=== PATIENT | male | born 1950 | race Caucasian/White ===

== ENCOUNTER 2024-06-16 07:26 | Outpatient (CLI) | payer MEDICARE, SELFPAY ==
--- NOTE | 2024-06-16 | ECHO_ITS ---
Patient Info Name: Zeeshan Flores Age: 74 years : 1950 Gender: Male Ht: 73 in Wt: 262 lbs BSA: 2.51 m2 HR: 69 bpm BP: 146 / 69 mmHg Heart Rhythm: Sinus Rhythm Technical Quality: Fair Exam Date: 06/16/2024 7:44 AM Exam Location: Echo Lab Patient Status: Outpatient Admit Date: 06/16/2024 Staff Ordering Physician: MiltonJacob MD Web Database Developer: Rosibel Arreola RDCS Attending Provider: DillanJacob MD Exam Type: CA echo doppler color flow Study Info Indications R01.1 - Cardiac murmur, unspecified Complete two-dimensional, color flow and Doppler transthoracic echocardiogram is performed. Summary 1. Left ventricular chamber dimension is normal. 2. Left ventricular systolic function is normal, estimated at 65-70%. 3. There is moderately increased left ventricular wall thickness. 4. The left ventricular diastolic function is grade I diastolic dysfunction. 5. Right ventricular systolic function is normal. 6. Left atrial chamber dimension is moderately enlarged. 7. There is moderate aortic valve calcification. 8. There is mild aortic valve stenosis with a peak velocity of 259 cm/s, mean gradient of 14 mmHg, and aortic valve area of 1.7 cm2. 9. The mitral valve annulus is severely calcified. 10. There is mild tricuspid valve regurgitation. Left Ventricle Left ventricular chamber dimension is normal. Left ventricular systolic function is normal, estimated at 65-70%. There is moderately increased left ventricular wall thickness. The left ventricular diastolic function is grade I diastolic dysfunction. Right Ventricle Right ventricular chamber dimension is normal. Right ventricular systolic function is normal. Left Atria Left atrial chamber dimension is moderately enlarged. Right Atria Right atrial chamber dimension is normal. Atrial Septum Intact interatrial septum visualized by color flow imaging. Aortic Valve The aortic valve is probable trileaflet. There is mild aortic valve stenosis with a peak velocity of 259 cm/s, mean gradient of 14 mmHg, and aortic valve area of 1.7 cm2. There is no aortic valve regurgitation. There is moderate aortic valve calcification. Pulmonic Valve The pulmonic valve is not well visualized. There is no pulmonic regurgitation. Mitral Valve There is trace mitral valve regurgitation. The mitral valve annulus is severely calcified. Tricuspid Valve There is mild tricuspid valve regurgitation. Pericardium/Pleural There is no pericardial effusion. Inferior Vena Cava Normal inferior vena cava with >50% collapse upon inspiration consistent with normal right atrial pressure, 3 mmHg. Aorta The aortic root size at the sinus of Valsalva is normal. Left Ventricular Outflow Tract Name Value Normal LVOT 2D LVOT Diameter 2.0 cm LVOT Doppler LVOT Peak Gradient 5 mmHg LVOT Mean Gradient 3 mmHg LVOT VTI 27 cm LVOT VTI/AV VTI Ratio 0.5 LVOT Stroke Volume 84 ml LVOT CO 5.5 l/min LVOT CI 2.2 l/min/m2 Pulmonic Valve
== END 2024-06-16 07:27 | disposition home or self-care (01) ==
PROVIDERS: PCP Internal Medicine; Visit Provider Internal Medicine
DX: R01.1 Cardiac murmur, unspecified (principal); I51.89 Other ill-defined heart diseases; I70.0 Atherosclerosis of aorta; I35.0 Nonrheumatic aortic (valve) stenosis; I34.81 Nonrheumatic mitral (valve) annulus calcification; I36.1 Nonrheumatic tricuspid (valve) insufficiency
CPT/HCPCS: 93306

== ENCOUNTER 2024-09-22 11:00 | Inpatient (IN) | payer MEDICARE, SELFPAY ==
[2024-09-22] VITALS (12 sets, daily range): BP systolic 123–146; BP diastolic 51–76; PULSE 76–120; RESP 13–21; TEMP 36.4–36.6; O2SAT 85–100
--- NOTE | ~2024-09-22 | US_ITS ---
BILATERAL LOWER EXTREMITY VENOUS ULTRASOUND Ordering provider: Keara Lama APRN History: . leg swelling . Comparison: None. FINDINGS: RIGHT LOWER EXTREMITY VEINS: --COMMON FEMORAL: Patent and free of thrombus. Normal compressibility, phasic flow and augmentation. --PROXIMAL SUPERFICIAL FEMORAL: Patent and free of thrombus. Normal compressibility, phasic flow and augmentation. --DISTAL SUPERFICIAL FEMORAL: Patent and free of thrombus. Normal compressibility, phasic flow and au gmentation. --POPLITEAL: Patent and free of thrombus. Normal compressibility, phasic flow and augmentation. --POSTERIOR TIBIAL: not evaluated. LEFT LOWER EXTREMITY VEINS: --COMMON FEMORAL: Patent and free of thrombus. Normal compressibility, phasic flow and augmentation. --PROXIMAL SUPERFICIAL FEMORAL: Patent and free of thrombus. Normal compressibility, phasic flow and augmentation. --DISTAL SUPERFICIAL FEMORAL: Patent and free of thrombus. Normal compressibility, phasic flow and au gmentation. --POPLITEAL: Patent and free of thrombus. Normal compressibility, phasic flow and augmentation. --POSTERIOR TIBIAL: Patent and free of thrombus. Normal compressibility, phasic flow and augmentation . IMPRESSION: Negative bilateral lower extremity venous US. No deep vein thrombosis. Reviewed, dictated and finalized at location A. ATING ROOM ASSISTANT
--- NOTE | ~2024-09-22 | XR_ITS ---
XR chest 1V portable DATE: 09/25/2024 22:12 INDICATION: Cough TECHNIQUE: Portable AP chest on 09/25/2024 at 2209 hours COMPARISON: None FINDINGS: Heart size is not optimally evaluated in AP projection because of magnification. Aortic arc h calcification. No pulmonary consolidation, pleural effusion, pulmonary vascular congestion or pneumothorax is detect ed. Degenerative spurring and minimal dextroscoliosis of the thoracic spine. IMPRESSION: No active pulmonary disease Reviewed, dictated and finalized at location A. N INSPECTOR IMPRESSION: No active pulmonary disease
[2024-09-22 12:20] LABS: Basophils Absolute Auto 0.1 K/mm3 (0.0-0.1); Basophils Percent Auto 0.6 % (0.2-1.2); Eosinophils Percent Auto 0.2 % (0-4.4); Hematocrit 34.2 % (42.0-52.0); Hemoglobin 10.4 g/dL (14.0-18.0); Immature Granulocyte Percent A 1.2 % (0-0.5); Lymphocytes Absolute Auto 0.68 K/mm3 (0.9-3.2); Mean Corpuscular HGB Conc 30.4 g/dl (32-36); Mean Corpuscular Hemoglobin 28.2 pg (26-34); Mean Corpuscular Volume 92.7 fl (80-100); Mean Platelet Volume 8.9 fl (7.4-10.4); Monocytes Percent Auto 11.7 % (2.6-8.5); Neutrophils Absolute Auto 6.6 K/mm3 (1.3-6.7); Neutrophils Percent Auto 78.3 % (45.5-73.1); Platelet Count Result 310 k/mm3 (150-375); Red Blood Count 3.69 M/mm3 (4.6-6.20); Red Cell Distribution Width 15.9 % (11.5-14.5); White Blood Count 8.5 K/mm3 (4.5-10.0)
--- NOTE | 2024-09-22 13:29 | ED_ITS ---
HPI - Extremity Injury (Lower) General Chief Complaint: Extremity Injury, Lower Stated Complaint: skin problems Time Seen by Provider: 09/22/24 12:09 History of Present Illness HPI Narrative: Patient is a 74-year-old male who presents ER with wounds to his lower extremities, left lower extremity worse than the right. The left side is draining pus. Began over last couple of days. Denies fevers or chills. He has seen Wound Care, he thinks it is through gait today. He has been on doxycycline for months. Related Data Home Medications ?Medication ?Instructions ?Recorded ?Confirmed ?Last Taken ?Type aspirin 81 mg tablet,delayed 81 mg PO DAILY 09/22/24 09/22/24 09/19/24 History release (Adult Aspirin Regimen) clobetasol 0.05 % topical ointment 1 applic topical Q3D 09/22/24 09/22/24 09/21/24 History doxycycline hyclate 100 mg tablet 200 mg PO BID 09/22/24 09/22/24 09/22/24 History empagliflozin 10 mg tablet 10 mg PO DAILY 09/22/24 09/22/24 09/22/24 History (Jardiance) insulin degludec 100 unit/mL (3 20 unit subcut DAILY 09/22/24 09/22/24 09/22/24 History mL) subcutaneous pen (Tresiba FlexTouch U-100 insulin) lisinopril 10 mg tablet 10 mg PO DAILY 09/22/24 09/22/24 09/22/24 History mupirocin 2 % topical ointment 1 applic topical DAILY 09/22/24 09/22/24 Unknown History omega 6-bux-pzq-fish oil 100 1 cap PO DAILY 09/22/24 09/22/24 09/22/24 History mg-160 mg-1,000 mg capsule (Fish Oil) prednisone 10 mg tablet 10 mg PO DAILY 09/22/24 09/22/24 09/22/24 History rosuvastatin 10 mg tablet (Crestor) 10 mg PO DAILY 09/22/24 09/22/24 09/22/24 History Allergies Allergy/AdvReac Type Severity Reaction Status Date / Time No Known Allergies Allergy Verified 09/22/24 12:10 Review of Systems 2 Review of Systems: All systems reviewed & are unremarkable except as noted in HPI and below Constitutional: Constitutional: Reports no additional constitutional complaints ENT: Reports system reviewed and no additional complaints, except as documented Cardiovascular: Cardiovascular: Reports no additional cardiovascular complaints Respiratory: Respiratory: Reports no additional respiratory complaints Integumentary/Breasts: Skin/Breast: Reports rash and Reports skin ulcer C omments: purulent wounds Neurologic: Reports system reviewed and no additional complaints, except as documented PMFSH Past Medical History Medical History (Updated 09/22/24 @ 21:15 by Jose Burk MD) Hyperlipidemia Hypertension Diabetes Social History Social History Smoking status: Never smoker Alcohol intake: current Drinks per week: 14 Last use: 09/13/24 Do You Feel Safe in your Home?: Yes Lack of Transportation: No Lack of Food: Never True Current Housing: I Have Housing Concerned About Future Housing: No Difficulty Paying Gas/Electric Bills: No Difficulty Paying for Meds: No Currently Unemployed: No Education: Decline to Answer Difficulty w/ Childcare or Family Care: No Spiritual care concerns: No Exam 2 Narrative: GENERAL: Well-appearing, well-nourished, and in no acute distress. HEAD: Normocephalic, atraumatic. ENT: Mucous membranes moist. NECK: Supple. CHEST: Clear to auscultation. No respiratory distress. HEART: Regular rate and rhythm. Normal peripheral pulses. ABDOMEN: Soft, nontender, nondistended. EXTREMITIES: Normal range of motion. Chronic venous stasis changes of bilateral lower extremities. SKIN: Warm, dry. Chronic ulcer shins of the lateral aspects lower legs near the ankle. Purulent drainage from anterior kearney wounds on left lower extremity. No excessive warmth. NEURO: Alert and oriented x3. PSYCH: Normal mood and affect. Course Vital Signs Vital signs: Vital Signs Temperature 97.8 F 09/22/24 11:07 Pulse Rate 104 H 09/22/24 11:07 Respiratory Rate 20 09/22/24 11:07 Blood Pressure 138/58 L 09/22/24 11:07 Pulse Oximetry 85 L 09/22/24 11:07 Oxygen Delivery Room Air 09/22/24 11:07 Temperature 97.8 F 09/22/24 11:07 Pulse Rate 93 09/22/24 17:15 Respiratory Rate 18 09/22/24 17:15 Blood Pressure 126/60 09/22/24 17:15 Pulse Oximetry 98 09/22/24 16:30 Oxygen Delivery Room Air 09/22/24 12:16 MDM - Extremity Injury (Lower) Lab Data 09/22/24 12:11 09/22/24 12:39 Labs: Lab Results 09/22/24 09/22/24 Range/Units 12:11 12:39 WBC 8.5 (4.5-10.0) K/mm3 RBC 3.69 L (4.6-6.20) M/mm3 Hgb 10.4 L (14.0-18.0) g/dL Hct 34.2 L (42.0-52.0) % MCV 92.7 (80-100) fl MCH 28.2 (26-34) pg MCHC 30.4 L (32-36) g/dl RDW 15.9 H (11.5-14.5) % Plt Count 310 (150-375) k/mm3 MPV 8.9 (7.4-10.4) fl Immature Gran % (Auto) 1.2 H (0-0.5) % Neut % (Auto) 78.3 H (45.5-73.1) % Lymph % (Auto) 8.0 L (18.3-44.2) % [place] % (Auto) 11.7 H (2.6-8.5) % Eos % (Auto) 0.2 (0-4.4) % Baso % (Auto) 0.6 (0.2-1.2) % Lymph # (Auto) 0.68 L (0.9-3.2) K/mm3 [place] # (Auto) 1.0 H (0.1-0.6) K/mm3 Eos # (Auto) 0.0 (0-0.3) K/mm3 Baso # (Auto) 0.1 (0.0-0.1) K/mm3 Abs Immat Gran (auto) 0.10 H (0.00-0.031) K/mm3 Absolute Neuts (auto) 6.6 (1.3-6.7) K/mm3 Absolute Nucleated RBC 0.000 (0.0-0.012) K/mm3 Nucleated RBC % 0.0 (0.0-0.2) % PT 16.1 H (11.1-14.7) Seconds INR 1.2 APTT 38.4 H (22.3-36.8) Seconds Sodium 137 (137-145) mmol/L Potassium 4.5 (3.4-5.0) mmol/L Chloride 105 (98-107) mmol/L Carbon Dioxide 26 (22-30) mmol/L Anion Gap 6 (4-12) mmol/L BUN 14 (9-20) mg/dL Creatinine 0.60 L (0.7-1.3) mg/dL Estim Creat Clear Calc 124 ml/min Estimated GFR > 60 (59 - ) Glucose 196 H (65-110) mg/dL Calcium 9.0 (8.4-10.2) mg/dL Discharge Plan Discharge Clinical Impression: Abscess of left leg Patient Disposition: Still a Patient Condition: Stable
[2024-09-22 13:45] LABS: INR 1.2; Prothrombin Time 16.1 Seconds (11.1-14.7)
[2024-09-22 13:46] LABS: Partial Thromboplastin Time 38.4 Seconds (22.3-36.8)
[2024-09-22 13:50] LABS: Anion Gap 6 mmol/L (4-12); Blood Urea Nitrogen 14 mg/dL (9-20); Carbon Dioxide 26 mmol/L (22-30); Chloride 105 mmol/L (98-107); Estimated CRCL calculation 124 ml/min; Estimated Glomerular Filt Rate > 60; Glucose 196 mg/dL (65-110); Potassium 4.5 mmol/L (3.4-5.0); Sodium 137 mmol/L (137-145)
--- NOTE | 2024-09-22 15:01 | PC.NURSE ---
Per EDP, Dr. Burk, no blood cultures needed.
[2024-09-22] MEDS: VANCOMYCIN 1,500 MG/NS 500 ML 1,500 MG/500 ML BAG 250 MG IVPB (16:36)
[2024-09-22] MEDS: HYDROcodone/acetaminophen (*CRX) 5-325 MG TABLET 1 TAB PO (18:54)
--- NOTE | 2024-09-22 19:37 | PC.NURSE ---
This patient, Zeeshan Flores, was admitted to 3 [facility] Surg Room 326-01. Patient/family oriented to hospital policies and general routines including ID bracelet, bed and alarms, visiting hours, pain management, procedures, bathroom and other care routines, personal items, smoking policy, room service/diet, and visiting hours. Information on how to activate the Rapid Response Team has been discussed. Patient/Family are encouraged to report perceived risks to care and to ask questions if they do not understand what they are told or what they should do.
[2024-09-22 22:25] LABS: Glucose Point of Care 170 mg/dl (65-105)
[2024-09-23] VITALS (14 sets, daily range): BP systolic 107–133; BP diastolic 46–81; PULSE 72–137; RESP 18–26; TEMP 36.1–37.1; O2SAT 95–100
[2024-09-23 00:16] LABS: Hemoglobin A1C 8.3 % (<5.7)
[2024-09-23 02:29] LABS: Iron 31 ug/dL (49-181)
[2024-09-23 02:40] LABS: Percent Iron Saturation 8 % (20-50); TOTAL IRON BINDING CAPACITY 365 ug/dL (265-497)
[2024-09-23] MEDS: VANCOMYCIN 1,500 MG/NS 500 ML 1,500 MG/500 ML BAG 250 MG IVPB (03:22)
[2024-09-23] MEDS: HYDROcodone/acetaminophen (*CRX) 5-325 MG TABLET 1 TAB PO ×3 (03:23→14:02)
[2024-09-23 03:36] LABS: Folic Acid > 20.0 ng/mL (2.76->20)
--- NOTE | 2024-09-23 04:30 | PM.IMHP ---
H&P: HPI History of Present Illness Date/Time: 09/23/24 04:30 Chief Complaint: Left leg drainage/redness/swelling Narrative: This is a 74-year-old male patient with a history hypertension hyperlipidemia diabetes is admitted for left lower extremity cellulitis/possible abscess. Patient as peripheral vascular disease has been getting wounds and blisters his lower extremities. The leg has more red more swollen than usual. He had previously been oral doxycycline for months that has not helped. Patient reported initially he was a little short of breath on arrival to the emergency department they placed him oxygen temporarily and discontinued it and he has been short of breath since. Patient does not take a water pill. Echocardiogram in May 2024 showed Grade 1 diastolic dysfunction. Review of Systems Review of Systems: All systems reviewed & are unremarkable except as noted in HPI and below PMFSH Past Medical History Medical History (Updated 09/23/24 @ 07:36 by Kelby Hernandes APRN) Hyperlipidemia Hypertension Diabetes Social History Social History (Updated 09/22/24 @ 22:41 by Suze Sumner) Smoking status: Never smoker Alcohol intake: current Drinks per week: 14 Alcohol use details: last drink 09/13/24 Do You Feel Safe in your Home?: Yes Lack of Transportation: No Lack of Food: Never True Current Housing: I Have Housing Concerned About Future Housing: No Difficulty Paying Gas/Electric Bills: No Difficulty Paying for Meds: No Currently Unemployed: No Education: Decline to Answer Difficulty w/ Childcare or Family Care: No Gender identity (if verbalized by the patient): Male Spiritual care concerns: No Meds Home Medications and Allergies Home Medications ?Medication ?Instructions ?Recorded ?Confirmed ?Type aspirin 81 mg tablet,delayed 81 mg PO DAILY 09/22/24 09/22/24 History release (Adult Aspirin Regimen) clobetasol 0.05 % topical ointment 1 applic topical Q3D 09/22/24 09/22/24 History doxycycline hyclate 100 mg tablet 200 mg PO BID 09/22/24 09/22/24 History empagliflozin 10 mg tablet 10 mg PO DAILY 09/22/24 09/22/24 History (Jardiance) insulin degludec 100 unit/mL (3 20 unit subcut DAILY 09/22/24 09/22/24 History mL) subcutaneous pen (Tresiba FlexTouch U-100 insulin) lisinopril 10 mg tablet 10 mg PO DAILY 09/22/24 09/22/24 History mupirocin 2 % topical ointment 1 applic topical DAILY 09/22/24 09/22/24 History omega 1-doh-pbj-fish oil 100 1 cap PO DAILY 09/22/24 09/22/24 History mg-160 mg-1,000 mg capsule (Fish Oil) prednisone 10 mg tablet 10 mg PO DAILY 09/22/24 09/22/24 History rosuvastatin 10 mg tablet (Crestor) 10 mg PO DAILY 09/22/24 09/22/24 History Allergies Allergy/AdvReac Type Severity Reaction Status Date / Time No Known Allergies Allergy Verified 09/22/24 12:10 Vital Signs Vital Signs - 24 hr 09/22/24 11:07 09/22/24 11:38 09/22/24 11:45 Temperature 36.6 C Pulse Rate 104 H 110 H 120 H Respiratory Rate 20 17 13 Blood Pressure 138/58 L 123/69 Pulse Oximetry 85 L 98 Oxygen Delivery Room Air 09/22/24 12:00 09/22/24 12:10 09/22/24 12:16 Temperature Pulse Rate 112 H 113 H Respiratory Rate 21 H 17 Blood Pressure 131/52 L 131/52 L Pulse Oximetry 97 97 96 Oxygen Delivery Room Air 09/22/24 12:45 09/22/24 14:15 09/22/24 15:01 Temperature Pulse Rate 110 H 102 H 87 Respiratory Rate 20 19 18 Blood Pressure 146/66 H 130/59 L 127/60 Pulse Oximetry 100 100 98 Oxygen Delivery 09/22/24 16:30 09/22/24 17:15 09/22/24 20:00 Temperature Pulse Rate 89 93 Respiratory Rate 20 18 Blood Pressure 130/76 126/60 Pulse Oximetry 98 Oxygen Delivery Room Air 09/22/24 22:00 Temperature 36.4 C Pulse Rate 76 Respiratory Rate 20 Blood Pressure 124/51 L Pulse Oximetry 97 Oxygen Delivery Exam Narrative: GENERAL: Well-appearing, well-nourished, and in no acute distress. HEAD: Normocephalic, atraumatic. ENT: Mucous membranes moist. NECK: Supple. CHEST: Clear to auscultation. No respiratory distress. HEART: Regular rate and rhythm. Normal peripheral pulses. ABDOMEN: Soft, nontender, nondistended. EXTREMITIES: Normal range of motion. Chronic venous stasis changes of bilateral lower extremities. SKIN: Warm, dry. Chronic ulcer shins of the lateral aspects lower legs near the ankle. Purulent drainage from anterior kearney wounds on left lower extremity. Significant erythema swelling to the left leg compared to the right. NEURO: Alert and oriented x3. PSYCH: Normal mood and affect. H&P: Results Labs Labs: Short CBC 09/22/24 Range/Units 12:11 WBC 8.5 (4.5-10.0) K/mm3 Hgb 10.4 L (14.0-18.0) g/dL Hct 34.2 L (42.0-52.0) % Plt Count 310 (150-375) k/mm3 BMP 09/22/24 12:39 Sodium 137 Potassium 4.5 Chloride 105 Carbon Dioxide 26 BUN 14 Creatinine 0.60 L Glucose 196 H Calcium 9.0 Pulse Oximetry SpO2 results: 97-98% on room air Attestation: I personally reviewed and interpreted this pulse oximetry as follows: Interpretation: No need for supplemental oxygenation at this time Assessment and Plan Assessment and plan (1) Cellulitis of left leg: Code(s): L03.116 - Cellulitis of left lower limb Status: Acute Assessment and Plan: -chronic wounds bilateral lower extremities due to PVD and lymphedema, worse on left -Significantly more swollen and red than right leg -Pus drainage from kearney wound cultured in ER, started on vancomycin IV (2) Diabetes type 2: Code(s): E11.9 - Type 2 diabetes mellitus without complications Status: Acute Assessment and Plan: -HGB A1c 8.3 -ACHS Fingerstick glucose -Resume home Lantus and SSI (3) Hypertension: Code(s): I10 - Essential (primary) hypertension Status: Acute Assessment and Plan: -Blood pressure reviewed and stable -Continue home medications (4) Hyperlipidemia: Code(s): E78.5 - Hyperlipidemia, unspecified Status: Acute Assessment and Plan: -Continue Crestor (5) Iron deficiency anemia: Code(s): D50.9 - Iron deficiency anemia, unspecified Status: Acute Assessment and Plan: -Chronic anemia noted on labs -Ordered anemia labs B12/Folate, iron/TIBC and ferritin -Iron count and %saturation quite low Quality VTE Prophylaxis VTE prophylaxis: pharmacologic ordered Hospitalist MIPS Advance Care Plan I have confirmed that the patient's Advanced Care Plan is present, code status is documented, or surrogate decision maker is listed in patient medical record.: Yes Medication Reconciliation I have utilized all available resources to obtain, update and review the patients current medications (includes all prescriptions, OTC, herbals, cannabis, and nutritional supplements).: Yes
[2024-09-23 06:49] LABS: Basophils Absolute Auto 0.1 K/mm3 (0.0-0.1); Basophils Percent Auto 0.6 % (0.2-1.2); Eosinophils Absolute Auto 0.1 K/mm3 (0-0.3); Eosinophils Percent Auto 0.6 % (0-4.4); Hemoglobin 9.6 g/dL (14.0-18.0); Immature Granulocyte Percent A 2.1 % (0-0.5); Lymphocytes Absolute Auto 1.27 K/mm3 (0.9-3.2); Lymphocytes Percent Auto 13.6 % (18.3-44.2); Mean Corpuscular Hemoglobin 27.7 pg (26-34); Mean Corpuscular Volume 92.5 fl (80-100); Mean Platelet Volume 8.5 fl (7.4-10.4); Monocytes Absolute Auto 1.8 K/mm3 (0.1-0.6); Monocytes Percent Auto 19.3 % (2.6-8.5); Neutrophils Percent Auto 63.8 % (45.5-73.1); Platelet Count Result 348 k/mm3 (150-375); Red Blood Count 3.46 M/mm3 (4.6-6.20); Red Cell Distribution Width 15.9 % (11.5-14.5); White Blood Count 9.4 K/mm3 (4.5-10.0)
[2024-09-23 07:02] LABS: Alanine Aminotransferase 14 U/L (6-50); Albumin Level 3.2 g/dL (3.5-5.1); Alkaline Phosphatase 63 U/L (38-126); Anion Gap 6 mmol/L (4-12); Aspartate Amino Transferase 17 U/L (17-59); Bilirubin,Total 1.3 mg/dL (0.2-1.3); Blood Urea Nitrogen 16 mg/dL (9-20); Calcium 8.7 mg/dL (8.4-10.2); Carbon Dioxide 26 mmol/L (22-30); Chloride 105 mmol/L (98-107); Estimated CRCL calculation 125 ml/min; Estimated Glomerular Filt Rate > 60; Glucose 118 mg/dL (65-110); Magnesium 2.2 mg/dL (1.6-2.3); Sodium 137 mmol/L (137-145)
[2024-09-23 07:36] LABS: Procalcitonin 0.2 ng/mL
[2024-09-23 07:43] LABS: CRP 19.8 mg/dL (<1.0)
[2024-09-23 07:46] LABS: Erythrocyte Sedimentation Rate > 140 mm/hr (0-20)
[2024-09-23 07:48] LABS: Glucose Point of Care 100 mg/dl (65-105)
[2024-09-23] MEDS: ROSUVASTATIN 10 MG TABLET PO (08:48)
[2024-09-23] MEDS: INSULIN GLARGINE (*BKC) 100 UNITS/ML 20 UNITS SUB-Q (08:48)
[2024-09-23] MEDS: lisinopriL 10 MG TABLET PO (08:48)
[2024-09-23] MEDS: ENOXAPARIN 40 MG/0.4 ML SYRINGE SUB-Q (08:48)
[2024-09-23] MEDS: ASPIRIN 81 MG ENTERIC TABLET PO (08:48)
[2024-09-23] MEDS: EMPAGLIFLOZIN 10 MG TABLET PO (08:48)
[2024-09-23 11:33] LABS: Glucose Point of Care 128 mg/dl (65-105)
--- NOTE | 2024-09-23 11:59 | P.CONGS_ITS ---
Assessment and Plan Assessment and plan (1) Abscess of left leg: Code(s): L02.416 - Cutaneous abscess of left lower limb Status: Acute Assessment and Plan: Left lower extremity with cellulitis and multiple draining wounds. There are small open wounds on the anterior lower leg that has purulent drainage and is tracking about 6 cm cephalad up his leg. We obtained a wound culture at the bedside today. We discussed treatment options with the patient and would recommend to proceed with incision and drainage of left leg abscess by Dr. Gandhi, which will need to be done in the OR. We will make him NPO for now and try adding him onto the surgery schedule. Description of the procedure, risks, benefits, alternatives, and expected wound care/recovery were discussed with the patient and he agrees to proceed. Continue IV antibiotics, which can be tailored to cultures. (2) Cellulitis of left leg: Code(s): L03.116 - Cellulitis of left lower limb Status: Acute Assessment and Plan: Continue IV antibiotics and keep lower extremities elevated while at rest in the bed or chair. (3) Venous stasis dermatitis of both lower extremities: Code(s): I87.2 - Venous insufficiency (chronic) (peripheral) Status: Chronic Assessment and Plan: The patient has severe venous stasis disease bilaterally and will need to be referred to a vascular surgeon. (4) Diabetes type 2: Code(s): E11.9 - Type 2 diabetes mellitus without complications Status: Acute Assessment and Plan: Insulin-dependent type 2 diabetes with a hgb A1C on this admission of 8.3. Management per Hospitalist. (5) Hypertension: Code(s): I10 - Essential (primary) hypertension Status: Acute (6) Iron deficiency anemia: Code(s): D50.9 - Iron deficiency anemia, unspecified Status: Acute Plan I have discussed the patient's case and plan of care with Dr. Gandhi. Thank you for allowing us to see the patient in consultation and we will continue to follow along with you. History of Present Illness Consult details Consult date: 09/23/24 Reason for consult: other (Left leg abscess) Requesting physician: Keara Lama, SHERICE Narrative: This is a 74-year-old man with PMH of insulin-dependent type 2 diabetes mellitus, hypertension, hyperlipidemia, who we have been asked to see in surgical consultation for a left leg abscess. He reports recently being followed by a wound care clinic in [place] after he developed some blisters or wounds on his left lower leg. He was started on antibiotics and topical ointments by his primary care provider. He was seen at the wound clinic and they reportedly tried to refer him to another specialist. He was unable to get in with the specialist for another couple weeks, and he was concerned that his left lower leg was getting worse. Therefore, he called his PCP who recommended he go to an ER for evaluation. He presented to the ED yesterday. Labs showed a normal white blood cell count. Hemoglobin A1c 8.3. He was found to have cellulitis and wounds of the left lower extremity and admitted to the hospitalist service. He has been started on IV vancomycin. Wound care was consulted and found left lower extremity wounds with purulence drainage concerning for abscess, and they recommended surgical evaluation. He is now seen at the bedside with Dr. Gandhi. His wounds have clearly been draining for some time, because he reports he has not slept in a bed for a long time due to the drainage from his legs. Denies any recent surgical management of his wounds or left lower extremity. No previous peripheral stents. Review of Systems 2 Review of Systems: All systems reviewed & are unremarkable except as noted in HPI and below PMFSH Past Medical History Medical History Venous stasis dermatitis of both lower extremities Hyperlipidemia Hypertension Diabetes Social History Social History Smoking status: Never smoker Alcohol intake: current Drinks per week: 14 Alcohol use details: last drink 09/13/24 Do You Feel Safe in your Home?: Yes Lack of Transportation: No Lack of Food: Never True Current Housing: I Have Housing Concerned About Future Housing: No Difficulty Paying Gas/Electric Bills: No Difficulty Paying for Meds: No Currently Unemployed: No Education: Decline to Answer Difficulty w/ Childcare or Family Care: No Gender identity (if verbalized by the patient): Male Spiritual care concerns: No Meds Home Medications and Allergies Home Medications ?Medication ?Instructions ?Recorded ?Confirmed ?Type aspirin 81 mg tablet,delayed 81 mg PO DAILY 09/22/24 09/22/24 History release (Adult Aspirin Regimen) clobetasol 0.05 % topical ointment 1 applic topical Q3D 09/22/24 09/22/24 History doxycycline hyclate 100 mg tablet 200 mg PO BID 09/22/24 09/22/24 History empagliflozin 10 mg tablet 10 mg PO DAILY 09/22/24 09/22/24 History (Jardiance) insulin degludec 100 unit/mL (3 20 unit subcut DAILY 09/22/24 09/22/24 History mL) subcutaneous pen (Tresiba FlexTouch U-100 insulin) lisinopril 10 mg tablet 10 mg PO DAILY 09/22/24 09/22/24 History mupirocin 2 % topical ointment 1 applic topical DAILY 09/22/24 09/22/24 History omega 6-hyn-mhp-fish oil 100 1 cap PO DAILY 09/22/24 09/22/24 History mg-160 mg-1,000 mg capsule (Fish Oil) prednisone 10 mg tablet 10 mg PO DAILY 09/22/24 09/22/24 History rosuvastatin 10 mg tablet (Crestor) 10 mg PO DAILY 09/22/24 09/22/24 History Allergies Allergy/AdvReac Type Severity Reaction Status Date / Time No Known Allergies Allergy Verified 09/22/24 12:10 Vital Signs Vital Signs - 24 hr 09/22/24 12:00 09/22/24 12:10 09/22/24 12:16 Temperature Pulse Rate 112 H 113 H Respiratory Rate 21 H 17 Blood Pressure 131/52 L 131/52 L Pulse Oximetry 97 97 96 Oxygen Delivery Room Air 09/22/24 12:45 09/22/24 14:15 09/22/24 15:01 Temperature Pulse Rate 110 H 102 H 87 Respiratory Rate 20 19 18 Blood Pressure 146/66 H 130/59 L 127/60 Pulse Oximetry 100 100 98 Oxygen Delivery 09/22/24 16:30 09/22/24 17:15 09/22/24 20:00 Temperature Pulse Rate 89 93 Respiratory Rate 20 18 Blood Pressure 130/76 126/60 Pulse Oximetry 98 Oxygen Delivery Room Air 09/22/24 22:00 09/23/24 06:00 09/23/24 09:00 Temperature 97.6 F 97.6 F Pulse Rate 76 109 H Respiratory Rate 20 18 Blood Pressure 124/51 L 122/51 L Pulse Oximetry 97 97 Oxygen Delivery Room Air Exam 2 Const: General: comfortable and no acute distress Nutritional Appearance: o verweight Orientation/consciousness: patient oriented x3 HENMT: Head: normocephalic and atraumatic Ears: hearing grossly normal bilaterally Eyes: General: appearance normal, both eyes and all related structures P upils: Equal, round and reactive pupils present Neck: Neck: normal visual inspection and full ROM Resp: Effort & Inspection: no respiratory distress Auscultation: clear to auscultation bilaterally Cardio: Rate: regular rate Rhythm: regular rhythm Heart sounds: S1 normal heart sound present and S2 normal heart sound present GI: Inspection: non-distended GI Palp: Yes Soft to palpation, No Tenderness to palpation present (GI) and No Guarding due to palpation present (GI) A uscultation: normal bowel sounds Skin: General skin exam: no pallor Neuro: General: moves all extremities and no focal motor deficits Speech: n ormal speech Motor exam (neuro): 5/5 motor strength present throughout Extrem: Right upper extremity: normal to inspection Left upper extremity: n ormal to inspection Other: Bilateral lower extremity venous stasis dermatitis. Left lower leg has diffuse erythema and edema in comparison to the right. There are multiple open wounds on the left lower leg with three small open wounds on the anterior aspect of the lower leg that are draining purulent drainage, which was cultured at the bedside. The most superior open wound tunnels cephalad about 6 cm and with almost continuous actively draining pus. When probing at least the most superior opening, it does seem to probe to bone. He is able to wiggle his toes and has active ROM of left ankle. Both the pedal and posterior tibial pulses showed triphasic doppler waveforms with bedside doppler. Psych: Mental Status: mental status grossly normal Attitude: cooperative Insight: Fair insight present (Psych) Judgement: Fair judgement present (Psych) Results Labs 09/23/24 06:42 09/23/24 06:42 Labs: Abnormal lab results 09/22/24 09/22/24 09/22/24 Range/Units 12:11 12:39 21:32 RBC 3.69 L (4.6-6.20) M/mm3 Hgb 10.4 L (14.0-18.0) g/dL Hct 34.2 L (42.0-52.0) % MCHC 30.4 L (32-36) g/dl RDW 15.9 H (11.5-14.5) % Immature Gran % (Auto) 1.2 H (0-0.5) % Neut % (Auto) 78.3 H (45.5-73.1) % Lymph % (Auto) 8.0 L (18.3-44.2) % [place] % (Auto) 11.7 H (2.6-8.5) % Lymph # (Auto) 0.68 L (0.9-3.2) K/mm3 [place] # (Auto) 1.0 H (0.1-0.6) K/mm3 Abs Immat Gran (auto) 0.10 H (0.00-0.031) K/mm3 ESR (0-20) mm/hr PT 16.1 H (11.1-14.7) Seconds APTT 38.4 H (22.3-36.8) Seconds Creatinine 0.60 L (0.7-1.3) mg/dL Glucose 196 H (65-110) mg/dL POC Capillary Glucose 170 H (65-105) mg/dl Hemoglobin A1c 8.3 H (<5.7) % Iron 31 L (49-181) ug/dL % Saturation 8 L (20-50) % Ferritin 832.00 H (11.1-264) ng/mL C-Reactive Protein (<1.0) mg/dL Albumin (3.5-5.1) g/dL Folate > 20.0 H (2.76->20) ng/mL 09/23/24 09/23/24 Range/Units 06:42 11:25 RBC 3.46 L (4.6-6.20) M/mm3 Hgb 9.6 L (14.0-18.0) g/dL Hct 32.0 L (42.0-52.0) % MCHC 30.0 L (32-36) g/dl RDW 15.9 H (11.5-14.5) % Immature Gran % (Auto) 2.1 H (0-0.5) % Neut % (Auto) (45.5-73.1) % Lymph % (Auto) 13.6 L (18.3-44.2) % [place] % (Auto) 19.3 H (2.6-8.5) % Lymph # (Auto) (0.9-3.2) K/mm3 [place] # (Auto) 1.8 H (0.1-0.6) K/mm3 Abs Immat Gran (auto) 0.20 H (0.00-0.031) K/mm3 ESR > 140 H (0-20) mm/hr PT (11.1-14.7) Seconds APTT (22.3-36.8) Seconds Creatinine 0.60 L (0.7-1.3) mg/dL Glucose 118 H (65-110) mg/dL POC Capillary Glucose 128 H (65-105) mg/dl Hemoglobin A1c (<5.7) % Iron (49-181) ug/dL % Saturation (20-50) % Ferritin (11.1-264) ng/mL C-Reactive Protein 19.8 H (<1.0) mg/dL Albumin 3.2 L (3.5-5.1) g/dL Folate (2.76->20) ng/mL Diabetes panel 09/22/24 09/22/24 09/23/24 Range/Units 12:11 12:39 06:42 Sodium 137 137 (137-145) mmol/L Potassium 4.5 4.0 (3.4-5.0) mmol/L Chloride 105 105 (98-107) mmol/L Carbon Dioxide 26 26 (22-30) mmol/L BUN 14 16 (9-20) mg/dL Creatinine 0.60 L 0.60 L (0.7-1.3) mg/dL Glucose 196 H 118 H (65-110) mg/dL Hemoglobin A1c 8.3 H (<5.7) % Calcium 9.0 8.7 (8.4-10.2) mg/dL AST 17 (17-59) U/L ALT 14 (6-50) U/L Alkaline Phosphatase 63 (38-126) U/L Total Protein 7.0 (6.3-8.2) g/dL Albumin 3.2 L (3.5-5.1) g/dL Calcium panel 09/22/24 09/23/24 Range/Units 12:39 06:42 Calcium 9.0 8.7 (8.4-10.2) mg/dL Albumin 3.2 L (3.5-5.1) g/dL Pituitary panel 09/22/24 09/23/24 Range/Units 12:39 06:42 Sodium 137 137 (137-145) mmol/L Potassium 4.5 4.0 (3.4-5.0) mmol/L Chloride 105 105 (98-107) mmol/L Carbon Dioxide 26 26 (22-30) mmol/L BUN 14 16 (9-20) mg/dL Creatinine 0.60 L 0.60 L (0.7-1.3) mg/dL Glucose 196 H 118 H (65-110) mg/dL Calcium 9.0 8.7 (8.4-10.2) mg/dL Adrenal panel 09/22/24 09/23/24 Range/Units 12:39 06:42 Sodium 137 137 (137-145) mmol/L Potassium 4.5 4.0 (3.4-5.0) mmol/L Chloride 105 105 (98-107) mmol/L Carbon Dioxide 26 26 (22-30) mmol/L BUN 14 16 (9-20) mg/dL Creatinine 0.60 L 0.60 L (0.7-1.3) mg/dL Glucose 196 H 118 H (65-110) mg/dL Calcium 9.0 8.7 (8.4-10.2) mg/dL Total Bilirubin 1.3 (0.2-1.3) mg/dL AST 17 (17-59) U/L ALT 14 (6-50) U/L Alkaline Phosphatase 63 (38-126) U/L Total Protein 7.0 (6.3-8.2) g/dL Albumin 3.2 L (3.5-5.1) g/dL All other labs normal.
--- NOTE | 2024-09-23 15:03 | PM.IMPN ---
Progress Note: A&P Assessment and Plan (1) Cellulitis of left leg: Code(s): L03.116 - Cellulitis of left lower limb Status: Acute Assessment and Plan: -chronic wounds bilateral lower extremities due to PVD and lymphedema, worse on left -Significantly more swollen and red than right leg -Pus drainage from [place] wound cultured in ER, started on vancomycin IV will order doppler to r/u DVT (2) Diabetes type 2: Code(s): E11.9 - Type 2 diabetes mellitus without complications Status: Acute Assessment and Plan: -HGB A1c 8.3 -ACHS Fingerstick glucose -Resume home Lantus 20 units and SSI hypoglycemia protocol (3) Hypertension: Code(s): I10 - Essential (primary) hypertension Status: Acute Assessment and Plan: -Blood pressure reviewed and stable -Continue home medications (4) Hyperlipidemia: Code(s): E78.5 - Hyperlipidemia, unspecified Status: Acute Assessment and Plan: -Continue Crestor (5) Iron deficiency anemia: Code(s): D50.9 - Iron deficiency anemia, unspecified Status: Acute Assessment and Plan: -Chronic anemia noted on labs -Ordered anemia labs B12/Folate, iron/TIBC and ferritin -Iron count and %saturation quite low Time Spent With Patient Time with patient: Greater than 35 minutes Subjective Date/time seen: 09/23/24 15:03 Interval history: his is a 74-year-old male patient with a history hypertension hyperlipidemia diabetes is admitted for left lower extremity cellulitis/possible abscess. Patient as peripheral vascular disease has been getting wounds and blisters his lower extremities. The leg has more red more swollen than usual. He had previously been oral doxycycline for months that has not helped. Patient reported initially he was a little short of breath on arrival to the emergency department they placed him oxygen temporarily and discontinued it and he has been short of breath since. Patient does not take a water pill. Echocardiogram in May 2024 showed Grade 1 diastolic dysfunction. Pt is seen and examined. He is up in the chair, pain is well controlled. Review of Systems Review of Systems: All systems reviewed & are unremarkable except as noted in HPI and below Cardiovascular: Cardiovascular: Denies chest pain Respiratory: Respiratory: Denies chest congestion Gastrointestinal: Gastrointestinal: Denies abdominal pain Exam Narrative: GENERAL: Well-appearing, well-nourished, and in no acute distress. HEAD: Normocephalic, atraumatic. ENT: Mucous membranes moist. NECK: Supple. CHEST: Clear to auscultation. No respiratory distress. HEART: Regular rate and rhythm. Normal peripheral pulses. ABDOMEN: Soft, nontender, nondistended. EXTREMITIES: Normal range of motion. Chronic venous stasis changes of bilateral lower extremities. SKIN: Warm, dry. Chronic ulcer shins of the lateral aspects lower legs near the ankle. Purulent drainage from anterior kear[place] wounds on left lower extremity. Significant erythema swelling to the left leg compared to the right. NEURO: Alert and oriented x3. PSYCH: Normal mood and affect. Objective Data Vital Signs Vital Signs: Vital Signs - 24 hr 09/22/24 16:30 09/22/24 17:15 09/22/24 20:00 Temperature Pulse Rate 89 93 Respiratory Rate 20 18 Blood Pressure 130/76 126/60 Pulse Oximetry 98 Oxygen Delivery Room Air 09/22/24 22:00 09/23/24 06:00 09/23/24 09:00 Temperature 97.6 F 97.6 F Pulse Rate 76 109 H Respiratory Rate 20 18 Blood Pressure 124/51 L 122/51 L Pulse Oximetry 97 97 Oxygen Delivery Room Air Intake/Output Intake/Output: Intake & Output 09/20/24 09/21/24 09/22/24 09/23/24 23:59 23:59 23:59 23:59 Intake Total 2360 Balance 2360 Meds/Results Medications: Active Medications Generic Name Dose Route Start Last Admin Trade Name Freq PRN Reason Stop Dose Admin Acetaminophen 650 mg 09/22/24 16:38 Acetaminophen 325 Mg Tablet PO Q4H PRN Mild Pain (1-3) or Fever Hydrocodone Bitart/Acetaminophen 1 tab 09/22/24 16:38 09/23/24 14:02 Hydrocodone/Acetaminophen (*Crx) 5-325 Mg Tablet PO 1 tab Q4H PRN Administration Pain Rated 4-6 Aspirin 81 mg 09/23/24 09:00 09/23/24 08:48 Aspirin 81 Mg Enteric Tablet PO 81 mg DAILY ISABELLE Administration Dextrose 12.5 gm 09/22/24 23:19 Dextrose 50% 25 Gm/50 Ml Syringe IV PUSH PRN PRN Hypoglycemia Protocol Empagliflozin 10 mg 09/23/24 09:00 09/23/24 08:48 Empagliflozin 10 Mg Tablet PO 10 mg DAILY ISABELLE Administration Enoxaparin Sodium 40 mg 09/23/24 09:00 09/23/24 08:48 Enoxaparin 40 Mg/0.4 Ml Syringe SUB-Q 40 mg DAILY ISABELLE Administration Glucagon 1 mg 09/22/24 23:19 Glucagon For Inj 1 Mg Vial IM PRN PRN Hypoglycemia Protocol Glucose 15 gm 09/22/24 23:19 Glucose Oral Gel 15 Gm Of Glucse In 37.5 Gm Tube PO PRN PRN Hypoglycemia Protocol Dextrose 1,000 mls @ 100 mls/hr 09/22/24 23:19 Dextrose 5% 1,000 Ml IVPB PRN PRN Hypoglycemia Protocol Cefazolin Sodium 2 gm in 50 mls @ 100 mls/hr 09/23/24 14:00 Ancef 2 Gm/D5w 50 Ml IVPB Q8HR [facility] Insulin Aspart 3 - 6 units 09/23/24 08:00 09/23/24 12:15 Insulin Aspart (*Bkc) 100 Units/Ml SUB-Q Not Given TIDWM [facility] Protocol Insulin Glargine 20 units 09/23/24 09:00 09/23/24 08:48 Insulin Glargine (*Bkc) 100 Units/Ml SUB-Q 20 units DAILY [facility] Administration Lisinopril 10 mg 09/23/24 09:00 09/23/24 08:48 Lisinopril 10 Mg Tablet PO 10 mg DAILY ISABELLE Administration Ondansetron HCl 4 mg 09/22/24 16:38 Ondansetron Inj 4 Mg/2 Ml Vial IV PUSH Q4H PRN Nausea Rosuvastatin Calcium 10 mg 09/23/24 09:00 09/23/24 08:48 Rosuvastatin 10 Mg Tablet PO 10 mg DAILY ISABELLE Administration Labs Labs: Laboratory Results - last 24 hr 09/22/24 09/22/24 09/22/24 12:11 12:39 21:32 WBC RBC Hgb Hct MCV MCH MCHC RDW Plt Count MPV Immature Gran % (Auto) Neut % (Auto) Lymph % (Auto) Long % (Auto) Eos % (Auto) Baso % (Auto) Lymph # (Auto) Long # (Auto) Eos # (Auto) Baso # (Auto) Abs Immat Gran (auto) Absolute Neuts (auto) Absolute Nucleated RBC Nucleated RBC % ESR Sodium Potassium Chloride Carbon Dioxide Anion Gap BUN Creatinine Estim Creat Clear Calc Estimated GFR Glucose POC Capillary Glucose 170 H Hemoglobin A1c 8.3 H Calcium Magnesium Iron 31 L TIBC 365 % Saturation 8 L Ferritin 832.00 H Total Bilirubin AST ALT Alkaline Phosphatase C-Reactive Protein Total Protein Albumin Vitamin B12 681.0 Folate > 20.0 H Procalcitonin 09/23/24 09/23/24 09/23/24 06:42 07:45 11:25 WBC 9.4 RBC 3.46 L Hgb 9.6 L Hct 32.0 L MCV 92.5 MCH 27.7 MCHC 30.0 L RDW 15.9 H Plt Count 348 MPV 8.5 Immature Gran % (Auto) 2.1 H Neut % (Auto) 63.8 Lymph % (Auto) 13.6 L Long % (Auto) 19.3 H Eos % (Auto) 0.6 Baso % (Auto) 0.6 Lymph # (Auto) 1.27 Long # (Auto) 1.8 H Eos # (Auto) 0.1 Baso # (Auto) 0.1 Abs Immat Gran (auto) 0.20 H Absolute Neuts (auto) 6.0 Absolute Nucleated RBC 0.000 Nucleated RBC % 0.0 ESR > 140 H Sodium 137 Potassium 4.0 Chloride 105 Carbon Dioxide 26 Anion Gap 6 BUN 16 Creatinine 0.60 L Estim Creat Clear Calc 125 Estimated GFR > 60 Glucose 118 H POC Capillary Glucose 100 128 H Hemoglobin A1c Calcium 8.7 Magnesium 2.2 Iron TIBC % Saturation Ferritin Total Bilirubin 1.3 AST 17 ALT 14 Alkaline Phosphatase 63 C-Reactive Protein 19.8 H Total Protein 7.0 Albumin 3.2 L Vitamin B12 Folate Procalcitonin 0.2 Quality VTE Prophylaxis VTE prophylaxis: pharmacologic ordered
[2024-09-23 15:22] LABS: Glucose Point of Care 96 mg/dl (65-105)
[2024-09-23] MEDS: ceFAZolin 2 GM/D5W 50 ML 2 GM/50 ML BAG IVPB ×2 (15:30→21:14)
--- NOTE | 2024-09-23 16:14 | P.PNAN_ITS ---
Anes - Initial Pre Proc Eval Procedure: Operation Date: 09/23/24 18:30 Proposed Procedures p Incision and Drainage Left Leg Abscess - Oleg Gandhi MD Date/Time: 09/23/24 16:14 Surgeon: Yandel Hartley MD Pre Op Diagnosis: Leg Abscess Patient Data Age: 74 Gender: M Height: 1.85 m Weight: 116.9 kg Last Vital Signs Temp 36.1 C L 09/23/24 15:14 Pulse 121 H 09/23/24 15:14 Resp 18 09/23/24 15:14 BP 116/48 L 09/23/24 15:14 Pulse Ox 95 09/23/24 15:14 O2 Del Method Room Air 09/23/24 15:14 Allergies Allergy/AdvReac Type Severity Reaction Status Date / Time No Known Allergies Allergy Verified 09/22/24 12:10 Home Medications ?Medication ?Instructions ?Recorded ?Confirmed ?Type aspirin 81 mg tablet,delayed 81 mg PO DAILY 09/22/24 09/22/24 History release (Adult Aspirin Regimen) clobetasol 0.05 % topical ointment 1 applic topical Q3D 09/22/24 09/22/24 History doxycycline hyclate 100 mg tablet 200 mg PO BID 09/22/24 09/22/24 History empagliflozin 10 mg tablet 10 mg PO DAILY 09/22/24 09/22/24 History (Jardiance) insulin degludec 100 unit/mL (3 20 unit subcut DAILY 09/22/24 09/22/24 History mL) subcutaneous pen (Tresiba FlexTouch U-100 insulin) lisinopril 10 mg tablet 10 mg PO DAILY 09/22/24 09/22/24 History mupirocin 2 % topical ointment 1 applic topical DAILY 09/22/24 09/22/24 History omega 4-fno-khh-fish oil 100 1 cap PO DAILY 09/22/24 09/22/24 History mg-160 mg-1,000 mg capsule (Fish Oil) prednisone 10 mg tablet 10 mg PO DAILY 09/22/24 09/22/24 History rosuvastatin 10 mg tablet (Crestor) 10 mg PO DAILY 09/22/24 09/22/24 History Laboratory Tests 09/22/24 09/22/24 09/22/24 12:11 12:39 21:32 WBC RBC Hgb Hct MCV MCH MCHC RDW Plt Count MPV Immature Gran % (Auto) Neut % (Auto) Lymph % (Auto) [place] % (Auto) Eos % (Auto) Baso % (Auto) Lymph # (Auto) [place] # (Auto) Eos # (Auto) Baso # (Auto) Abs Immat Gran (auto) Absolute Neuts (auto) Absolute Nucleated RBC Nucleated RBC % ESR Sodium Potassium Chloride Carbon Dioxide Anion Gap BUN Creatinine Estim Creat Clear Calc Estimated GFR Glucose POC Capillary Glucose 170 H mg/dl (65-105) Hemoglobin A1c 8.3 H % (<5.7) Calcium Magnesium Iron 31 L ug/dL (49-181) TIBC 365 ug/dL (265-497) % Saturation 8 L % (20-50) Ferritin 832.00 H ng/mL (11.1-264) Total Bilirubin AST ALT Alkaline Phosphatase C-Reactive Protein Total Protein Albumin Vitamin B12 681.0 pg/mL (239-931) Folate > 20.0 H ng/mL (2.76->20) Procalcitonin 09/23/24 09/23/24 09/23/24 06:42 07:45 11:25 WBC 9.4 K/mm3 (4.5-10.0) RBC 3.46 L M/mm3 (4.6-6.20) Hgb 9.6 L g/dL (14.0-18.0) Hct 32.0 L % (42.0-52.0) MCV 92.5 fl (80-100) MCH 27.7 pg (26-34) MCHC 30.0 L g/dl (32-36) RDW 15.9 H % (11.5-14.5) Plt Count 348 k/mm3 (150-375) MPV 8.5 fl (7.4-10.4) Immature Gran % (Auto) 2.1 H % (0-0.5) Neut % (Auto) 63.8 % (45.5-73.1) Lymph % (Auto) 13.6 L % (18.3-44.2) [place] % (Auto) 19.3 H % (2.6-8.5) Eos % (Auto) 0.6 % (0-4.4) Baso % (Auto) 0.6 % (0.2-1.2) Lymph # (Auto) 1.27 K/mm3 (0.9-3.2) [place] # (Auto) 1.8 H K/mm3 (0.1-0.6) Eos # (Auto) 0.1 K/mm3 (0-0.3) Baso # (Auto) 0.1 K/mm3 (0.0-0.1) Abs Immat Gran (auto) 0.20 H K/mm3 (0.00-0.031) Absolute Neuts (auto) 6.0 K/mm3 (1.3-6.7) Absolute Nucleated RBC 0.000 K/mm3 (0.0-0.012) Nucleated RBC % 0.0 % (0.0-0.2) ESR > 140 H mm/hr (0-20) Sodium 137 mmol/L (137-145) Potassium 4.0 mmol/L (3.4-5.0) Chloride 105 mmol/L (98-107) Carbon Dioxide 26 mmol/L (22-30) Anion Gap 6 mmol/L (4-12) BUN 16 mg/dL (9-20) Creatinine 0.60 L mg/dL (0.7-1.3) Estim Creat Clear Calc 125 ml/min Estimated GFR > 60 (59 - ) Glucose 118 H mg/dL (65-110) POC Capillary Glucose 100 mg/dl 128 H mg/dl (65-105) (65-105) Hemoglobin A1c Calcium 8.7 mg/dL (8.4-10.2) Magnesium 2.2 mg/dL (1.6-2.3) Iron TIBC % Saturation Ferritin Total Bilirubin 1.3 mg/dL (0.2-1.3) AST 17 U/L (17-59) ALT 14 U/L (6-50) Alkaline Phosphatase 63 U/L (38-126) C-Reactive Protein 19.8 H mg/dL (<1.0) Total Protein 7.0 g/dL (6.3-8.2) Albumin 3.2 L g/dL (3.5-5.1) Vitamin B12 Folate Procalcitonin 0.2 ng/mL 09/23/24 15:20 WBC RBC Hgb Hct MCV MCH MCHC RDW Plt Count MPV Immature Gran % (Auto) Neut % (Auto) Lymph % (Auto) [place] % (Auto) Eos % (Auto) Baso % (Auto) Lymph # (Auto) [place] # (Auto) Eos # (Auto) Baso # (Auto) Abs Immat Gran (auto) Absolute Neuts (auto) Absolute Nucleated RBC Nucleated RBC % ESR Sodium Potassium Chloride Carbon Dioxide Anion Gap BUN Creatinine Estim Creat Clear Calc Estimated GFR Glucose POC Capillary Glucose 96 mg/dl (65-105) Hemoglobin A1c Calcium Magnesium Iron TIBC % Saturation Ferritin Total Bilirubin AST ALT Alkaline Phosphatase C-Reactive Protein Total Protein Albumin Vitamin B12 Folate Procalcitonin Patient hx anesthesia problems: none Family hx anesthesia problems: none Results Review: All pre-operative results and documents have been reviewed as part of the pre- operative evaluation. [facility] Past Medical History Medical History Venous stasis dermatitis of both lower extremities Hyperlipidemia Hypertension Diabetes Social History Social History Smoking status: Never smoker Alcohol intake: current Drinks per week: 14 Alcohol use details: last drink 09/13/24 Do You Feel Safe in your Home?: Yes Lack of Transportation: No Lack of Food: Never True Current Housing: I Have Housing Concerned About Future Housing: No Difficulty Paying Gas/Electric Bills: No Difficulty Paying for Meds: No Currently Unemployed: No Education: Decline to Answer Difficulty w/ Childcare or Family Care: No Gender identity (if verbalized by the patient): Male Spiritual care concerns: No Anes - Eval Final PreProcedure Day of Procedure 09/23/24 16:14 Patient weight: obese Heart: regular rate and rhythm Lungs: clear to auscultation Airway: Mallampati scale class II and special considerations poor dentition Neurological: alert and oriented Last oral intake: >/= 8 hours ASA classification: III Emergent: yes Anesthetic plan: proceed Anesthesia type and monitoring: general ETT and standard monitoring Results Review: All pre-operative results and documents have been reviewed as part of the pre- operative evaluation. Informed Consent: The patient's anesthetic plan and its attendant risks and benefits were discussed with the patient/family/POA. Questions were solicited and answers provided to the satisfaction of the patient/family/POA.
--- NOTE | 2024-09-23 16:59 | WPDHPUPDATE1 ---
History and Physical Update Update Date/Time: 09/23/24 16:59 History and Physical has been reviewed, including an updated exam of the patient. There are NO changes in the patient's condition. Risks, benefits, and alternatives have been discussed and questions answered. Patient agrees to proceed with procedure.
[2024-09-23] MEDS: LACTATED RINGERS 1,000 ML 30 ML IV CONT ×2 (17:47)
[2024-09-23 18:00] LABS: Glucose Point of Care 105 mg/dl (65-105)
[2024-09-23] MEDS: fentaNYL CITRATE INJ (*CRX) 100 MCG/2 ML VIAL 25 MCG IV PUSH ×8 (18:04→18:48)
--- NOTE | 2024-09-23 18:15 | W.PM.PROC2 ---
Procedure Note - Detailed Date of Procedure 09/23/24 Pre-op Diagnosis Multiple left leg abscesses Post-op Diagnosis Same Procedure Performed Incision and drainage multiple left below-knee abscesses Surgeon Oleg Gandhi MD Industrial Order Clerk Elena Gonzalez [facility] Anesthesia General Indications Purulent drainage in the setting of significant venous stasis disease left lower leg. Multiple ulcers draining purulent fluid. Findings Extensive interconnection of the various ulcers including some on the posterior calf area, medial calf area and anterior tibial and fibular areas of the left lower leg. Purulent fluid emanating from all these fistulae. When patient was hooked to cardiac rhythm monitoring in the operating room, he was noted to be in atrial fibrillation. He returned to mostly a sinus rhythm as the surgery progressed but was still occasionally in atrial fibrillation. He will be placed on a monitored bed postoperatively. Description of Procedure Patient was taken to surgery and induced into general anesthesia. He was noted to be in atrial fibrillation as mentioned above. The left leg was prepped and draped from the knee down. The most obvious openings were the 3 in the anterior tibial area. These were probed and the upper most of these 3 ulcers communicated cephalad and laterally. Three ulcers communicated with 1 another and there was evidence of more tracking from each of the other 2. After probing with a Q-tip or with a curved clamp, I on removed proximally from the uppermost ulcer on the anterior tibia as well as laterally to open all the pockets of abscess. Continuing to probed there was communication anteriorly and medially to about the mid lower leg as well as laterally and distal. Review of additional purulent ulcers was performed. Probing these showed communication from the medial and posterior ulcers with the lateral tracking noted from the original 3 ulcers. This was all opened such that flaps were created and all purulent material and abscess loculations could be broken up. These areas of abscesses were also quite vascular and there was oozing of blood. We searched for additional purulent ulcers but could not find any at this time. We then packed all the current abscess tracks with 2 in iodoform Nu Gauze. This required 2 full bottles, each containing 3 yds of Nu Gauze. Once this was placed in the wound, we placed fluffs and ABDs over the wounds. We wrapped initially with Kerlix wrap. We then placed more fluffs and ABDs over the entire lower leg. Two more additional Kerlix rolls were then used to wrap these bandages in place. Patient was then awakened and taken to recovery room with left leg elevated. Sponge and needle counts were correct x2. Cultures of the purulent drainage had been obtained earlier today and no additional cultures were obtained. Estimated Blood Loss -100 Drains No Packing Yes (2 in iodoform Nu Gauze, 2 bottles or 18 ft of Nu Gauze were required) Pathology None sent Complications None Condition Stable Disposition PACU [facility] Billing Surgery - Charge Forward: Surgery Billing (Incision and drainage of complex left lower leg abscesses)
[2024-09-23] MEDS: LACTATED RINGERS 1,000 ML 100 ML IV CONT (20:03)
[2024-09-23] MEDS: oxyCODONE/ACETAMINOPHEN (*CRX) 10-325 MG TABLET 1 TAB PO (20:03)
--- NOTE | 2024-09-23 21:45 | ECG_ITS ---
Test Date: 2024-09-23 22:32:47 Measurements Intervals [place] Rate: 94 P: 71 OH: 166 QRS: 7 QRSD: 89 T: -6 QT: 369 QTc: 462 Interpretive Statements SINUS RHYTHM WITH FREQUENT SUPRAVENTRICULAR PREMATURE COMPLEXES NONSPECIFIC ST & T-WAVE ABNORMALITY ABNORMAL RHYTHM ECG No previous ECG available for comparison Electronically Signed On 09-27-2024 14:52:46 [employer] by Tim Barakat M.D.
[2024-09-24] VITALS (18 sets, daily range): BP systolic 116–135; BP diastolic 47–91; PULSE 70–140; RESP 16–24; TEMP 35.9–36.9; O2SAT 94–99
[2024-09-24 00:03] LABS: Glucose Point of Care 89 mg/dl (65-105)
--- NOTE | 2024-09-24 03:26 | PC.NURSE ---
Pt states he has moderate pain in his left leg while ambulating that is relieved with rest and elevation. Patient was offered the PRN roxicodone as well as tylenol at this time, but refused both. Patient's heart rate on tele increases into the 140s with activity, and patient becomes visibly short of breath. Heart rate returns to the 80s-90s fairly quickly once patient returns to bed. Patient denies feeling SOB, saying I just take shallow breaths I guess . Patient believes he takes shallow breaths due to pain. Looking back, patient states he has been getting somewhat SOB with activity for the last few weeks but has also been in lots of pain for the last 6 months. Patient given an incentive spirometer and educated how to use it. Patient returns demonstration properly and tolerates IS well.
[2024-09-24] MEDS: ceFAZolin 2 GM/D5W 50 ML 2 GM/50 ML BAG IVPB ×3 (05:35→21:39)
[2024-09-24 08:03] LABS: Glucose Point of Care 91 mg/dl (65-105)
[2024-09-24 08:20] LABS: Basophils Absolute Auto 0.1 K/mm3 (0.0-0.1); Basophils Percent Auto 0.6 % (0.2-1.2); Eosinophils Absolute Auto 0.1 K/mm3 (0-0.3); Eosinophils Percent Auto 1.5 % (0-4.4); Hematocrit 28.2 % (42.0-52.0); Hemoglobin 8.4 g/dL (14.0-18.0); Immature Granulocyte Absolute 0.27 K/mm3 (0.00-0.031); Immature Granulocyte Percent A 2.9 % (0-0.5); Lymphocytes Absolute Auto 1.21 K/mm3 (0.9-3.2); Lymphocytes Percent Auto 12.8 % (18.3-44.2); Mean Corpuscular HGB Conc 29.8 g/dl (32-36); Mean Corpuscular Hemoglobin 27.4 pg (26-34); Mean Corpuscular Volume 91.9 fl (80-100); Mean Platelet Volume 8.9 fl (7.4-10.4); Monocytes Absolute Auto 1.5 K/mm3 (0.1-0.6); Monocytes Percent Auto 15.3 % (2.6-8.5); Neutrophils Absolute Auto 6.3 K/mm3 (1.3-6.7); Neutrophils Percent Auto 66.9 % (45.5-73.1); Platelet Count Result 319 k/mm3 (150-375); Red Blood Count 3.07 M/mm3 (4.6-6.20); Red Cell Distribution Width 15.9 % (11.5-14.5); White Blood Count 9.5 K/mm3 (4.5-10.0)
--- NOTE | 2024-09-24 08:20 | WPDANESPN ---
Anes - Prog Note Post-Op Date/Time: 09/24/24 08:20 Vital Signs: Last Vital Signs Temp 36.7 C 09/24/24 04:46 Pulse 87 09/24/24 04:46 Resp 22 H 09/24/24 04:46 BP 126/49 L 09/24/24 04:46 Pulse Ox 95 09/24/24 04:46 O2 Del Method Room Air 09/23/24 20:00 O2 Flow Rate 6 09/23/24 18:15 Pain Score (VAS): 0 I/O: Intake & Output 09/23/24 09/24/24 09/24/24 23:59 07:59 15:59 Intake Total 300 650 Balance 300 650 09/23/24 09/23/24 09/23/24 11:25 15:20 17:55 WBC RBC Hgb Hct MCV MCH MCHC RDW Plt Count MPV Immature Gran % (Auto) Neut % (Auto) Lymph % (Auto) [place] % (Auto) Eos % (Auto) Baso % (Auto) Lymph # (Auto) [place] # (Auto) Eos # (Auto) Baso # (Auto) Abs Immat Gran (auto) Absolute Neuts (auto) Absolute Nucleated RBC Nucleated RBC % Sodium Potassium Chloride Carbon Dioxide Anion Gap BUN Creatinine Estim Creat Clear Calc Estimated GFR Glucose POC Capillary Glucose 128 H 96 105 Calcium Magnesium Total Bilirubin AST ALT Alkaline Phosphatase Total Protein Albumin 09/23/24 09/24/24 09/24/24 19:57 07:39 07:40 WBC Pending RBC Pending Hgb Pending Hct Pending MCV Pending MCH Pending MCHC Pending RDW Pending Plt Count Pending MPV Pending Immature Gran % (Auto) Pending Neut % (Auto) Pending Lymph % (Auto) Pending [place] % (Auto) Pending Eos % (Auto) Pending Baso % (Auto) Pending Lymph # (Auto) Pending [place] # (Auto) Pending Eos # (Auto) Pending Baso # (Auto) Pending Abs Immat Gran (auto) Pending Absolute Neuts (auto) Pending Absolute Nucleated RBC Pending Nucleated RBC % Pending Sodium Pending Potassium Pending Chloride Pending Carbon Dioxide Pending Anion Gap Pending BUN Pending Creatinine Pending Estim Creat Clear Calc Pending Estimated GFR Pending Glucose Pending POC Capillary Glucose 89 91 Calcium Pending Magnesium Pending Total Bilirubin Pending AST Pending ALT Pending Alkaline Phosphatase Pending Total Protein Pending Albumin Pending Patient Feedback: Patient satisfied with anesthetic care.
[2024-09-24 09:07] LABS: Anisocytosis 1+; Hypochromasia 1+; Platelet Estimate Adequate (Adequate); Schistocytes None Seen
--- NOTE | 2024-09-24 09:14 | PM.IMPN ---
Progress Note: A&P Assessment and Plan (1) Cellulitis of left leg: Code(s): L03.116 - Cellulitis of left lower limb Status: Acute Assessment and Plan: -chronic wounds bilateral lower extremities due to PVD and lymphedema, worse on left -Significantly more swollen and red than right leg -Pus drainage from kearney wound cultured in ER will order doppler to r/u DVT- negative surgery consult- I/D multiple abscess 1/3 follow wound culture results (2) Diabetes type 2: Code(s): E11.9 - Type 2 diabetes mellitus without complications Status: Acute Assessment and Plan: -HGB A1c 8.3 -ACHS Fingerstick glucose -Resume home Lantus 20 units and SSI hypoglycemia protocol (3) Hypertension: Code(s): I10 - Essential (primary) hypertension Status: Acute Assessment and Plan: -Blood pressure reviewed and stable -Continue home medications (4) Hyperlipidemia: Code(s): E78.5 - Hyperlipidemia, unspecified Status: Acute Assessment and Plan: -Continue Crestor (5) Iron deficiency anemia: Code(s): D50.9 - Iron deficiency anemia, unspecified Status: Acute Assessment and Plan: -Chronic anemia noted on labs -Ordered anemia labs B12/Folate, iron/TIBC and ferritin -Iron count and %saturation quite low- will order replacement iV Time Spent With Patient Time with patient: Greater than 35 minutes Subjective Date/time seen: 09/24/24 09:14 Interval history: his is a 74-year-old male patient with a history hypertension hyperlipidemia diabetes is admitted for left lower extremity cellulitis/possible abscess. Patient as peripheral vascular disease has been getting wounds and blisters his lower extremities. The leg has more red more swollen than usual. He had previously been oral doxycycline for months that has not helped. Patient reported initially he was a little short of breath on arrival to the emergency department they placed him oxygen temporarily and discontinued it and he has been short of breath since. Patient does not take a water pill. Echocardiogram in May 2024 showed Grade 1 diastolic dysfunction. I/D with Dr Gandhi yesterday 09/23. cultures were obtained. To OR for i/d again today Review of Systems Review of Systems: All systems reviewed & are unremarkable except as noted in HPI and below Cardiovascular: Cardiovascular: Denies chest pain Respiratory: Respiratory: Denies chest congestion Gastrointestinal: Gastrointestinal: Denies abdominal pain Exam Narrative: GENERAL: Well-appearing, well-nourished, and in no acute distress. HEAD: Normocephalic, atraumatic. ENT: Mucous membranes moist. NECK: Supple. CHEST: Clear to auscultation. No respiratory distress. HEART: Regular rate and rhythm. Normal peripheral pulses. ABDOMEN: Soft, nontender, nondistended. EXTREMITIES: Normal range of motion. Chronic venous stasis changes of bilateral lower extremities. SKIN: Warm, dry. Chronic ulcer shins of the lateral aspects lower legs near the ankle. Purulent drainage from anterior kearney wounds on left lower extremity. Significant erythema swelling to the left leg compared to the right. NEURO: Alert and oriented x3. PSYCH: Normal mood and affect. Objective Data Vital Signs Vital Signs: Vital Signs - 24 hr 09/23/24 14:00 09/23/24 15:14 09/23/24 17:47 Temperature 97.2 F L 96.9 F L 98.7 F Pulse Rate 85 121 H 100 Respiratory Rate 20 18 24 H Blood Pressure 113/57 L 116/48 L 108/62 Pulse Oximetry 98 95 100 Oxygen Delivery Room Air Simple Face Mask Oxygen Flow Rate 6 09/23/24 18:00 09/23/24 18:15 09/23/24 18:23 Temperature Pulse Rate 78 82 Respiratory Rate 22 H 20 Blood Pressure 113/51 L 111/47 L Pulse Oximetry 99 100 Oxygen Delivery Simple Face Mask Simple Face Mask Room Air Oxygen Flow Rate 6 6 09/23/24 18:30 09/23/24 18:45 09/23/24 19:00 Temperature 98.2 F Pulse Rate 72 77 72 Respiratory Rate 22 H 22 H 22 H Blood Pressure 113/51 L 113/81 133/67 Pulse Oximetry 96 96 95 Oxygen Delivery Room Air Room Air Room Air Oxygen Flow Rate 09/23/24 19:01 09/23/24 19:16 09/23/24 19:46 Temperature 97.1 F L 97.5 F L 97.9 F Pulse Rate 117 H 78 107 H Respiratory Rate 18 26 H 24 H Blood Pressure 125/51 L 130/60 113/59 L Pulse Oximetry 98 98 100 Oxygen Delivery Oxygen Flow Rate 09/23/24 20:00 09/23/24 20:00 09/23/24 20:46 Temperature 98.0 F Pulse Rate 137 H 95 Respiratory Rate 22 H Blood Pressure 107/46 L Pulse Oximetry 95 Oxygen Delivery Room Air Oxygen Flow Rate 09/24/24 00:00 09/24/24 00:46 09/24/24 04:46 Temperature 97.7 F 98.1 F Pulse Rate 94 108 H 87 Respiratory Rate 24 H 22 H Blood Pressure 130/64 126/49 L Pulse Oximetry 94 95 Oxygen Delivery Oxygen Flow Rate 09/24/24 08:46 Temperature 97.9 F Pulse Rate 131 H Respiratory Rate 18 Blood Pressure 124/51 L Pulse Oximetry 97 Oxygen Delivery Oxygen Flow Rate Intake/Output Intake/Output: Intake & Output 09/21/24 09/22/24 09/23/24 09/24/24 23:59 23:59 23:59 23:59 Intake Total 2660 650 Balance 2660 650 Meds/Results Medications: Active Medications Generic Name Dose Route Start Last Admin Trade Name Freq PRN Reason Stop Dose Admin Acetaminophen 650 mg 09/22/24 16:38 Acetaminophen 325 Mg Tablet PO Q4H PRN Mild Pain (1-3) or Fever Acetaminophen 500 mg 09/23/24 19:01 Acetaminophen 500 Mg Tablet PO Q6H PRN Pain Rated 1-3 Aspirin 81 mg 09/23/24 09:00 09/23/24 08:48 Aspirin 81 Mg Enteric Tablet PO 81 mg DAILY ISABELLE Administration Dextrose 12.5 gm 09/22/24 23:19 Dextrose 50% 25 Gm/50 Ml Syringe IV PUSH PRN PRN Hypoglycemia Protocol Empagliflozin 10 mg 09/23/24 09:00 09/23/24 08:48 Empagliflozin 10 Mg Tablet PO 10 mg DAILY ISABELLE Administration Enoxaparin Sodium 40 mg 09/23/24 09:00 09/23/24 08:48 Enoxaparin 40 Mg/0.4 Ml Syringe SUB-Q 40 mg DAILY ISABELLE Administration Glucagon 1 mg 09/22/24 23:19 Glucagon For Inj 1 Mg Vial IM PRN PRN Hypoglycemia Protocol Glucose 15 gm 09/22/24 23:19 Glucose Oral Gel 15 Gm Of Glucse In 37.5 Gm Tube PO PRN PRN Hypoglycemia Protocol Dextrose 1,000 mls @ 100 mls/hr 09/22/24 23:19 Dextrose 5% 1,000 Ml IVPB PRN PRN Hypoglycemia Protocol Cefazolin Sodium 2 gm in 50 mls @ 100 mls/hr 09/23/24 14:00 09/24/24 05:35 Ancef 2 Gm/D5w 50 Ml IVPB 100 mls/hr Q8HR ISABELLE Administration Ibuprofen 800 mg in 200 mls @ 400 mls/hr 09/23/24 19:01 Caldolor 800 Mg/200 Ml IVPB Q6H PRN Breakthrough Pain Rated 1-3 or NPO Insulin Aspart 3 - 6 units 09/23/24 08:00 09/23/24 18:53 Insulin Aspart (*Bkc) 100 Units/Ml SUB-Q Not Given TIDWM [facility] Protocol Insulin Glargine 20 units 09/23/24 09:00 09/23/24 08:48 Insulin Glargine (*Bkc) 100 Units/Ml SUB-Q 20 units DAILY [facility] Administration Lisinopril 10 mg 09/23/24 09:00 09/23/24 08:48 Lisinopril 10 Mg Tablet PO 10 mg DAILY [facility] Administration Morphine Sulfate 2 mg 09/23/24 19:01 Morphine Sulfate (*Crx) 2 Mg/Ml Inj IV PUSH Q2H PRN Breakthrough Pain Rated 4-6 or NPO Morphine Sulfate 4 mg 09/23/24 19:01 Morphine Sulfate (*Crx) 4 Mg/Ml Inj IV PUSH Q2H PRN Breakthrough Pain Rated 7-10 or NPO Ondansetron HCl 4 mg 09/22/24 16:38 Ondansetron Inj 4 Mg/2 Ml Vial IV PUSH Q4H PRN Nausea Oxycodone/Acetaminophen 1 tablet 09/23/24 19:01 Oxycodone/Acetaminophen (*Crx) 5-325 Mg Tablet PO Q4H PRN Pain Rated 4-6 Oxycodone/Acetaminophen 1 tab 09/23/24 19:01 09/23/24 20:03 Oxycodone/Acetaminophen (*Crx) 10-325 Mg Tablet PO 1 tab Q6H PRN Administration Pain Rated 7-10 Polyethylene Glycol 17 gm 09/24/24 09:00 Polyethylene Glycol 3350 17 Gm Powd.Pack PO QAM [facility] Rosuvastatin Calcium 10 mg 09/23/24 09:00 09/23/24 08:48 Rosuvastatin 10 Mg Tablet PO 10 mg DAILY [facility] Administration Senna/Docusate Sodium 2 tab 09/23/24 21:00 09/23/24 20:03 Senna/Docusate Sodium Tablet PO Not Given [facility] Radiology Results: ITS Impressions Venous Doppler Study 09/23/24 21:34 IMPRESSION: Negative bilateral lower extremity venous US. No deep vein thrombosis. Labs Labs: Laboratory Results - last 24 hr 09/23/24 09/23/24 09/23/24 11:25 15:20 17:55 WBC RBC Hgb Hct MCV MCH MCHC RDW Plt Count MPV Immature Gran % (Auto) Neut % (Auto) Lymph % (Auto) [place] % (Auto) Eos % (Auto) Baso % (Auto) Lymph # (Auto) [place] # (Auto) Eos # (Auto) Baso # (Auto) Abs Immat Gran (auto) Absolute Neuts (auto) Absolute Nucleated RBC Nucleated RBC % Platelet Estimate Hypochromasia Anisocytosis Schistocytes POC Capillary Glucose 128 H 96 105 09/23/24 09/24/24 09/24/24 19:57 07:39 07:40 WBC 9.5 RBC 3.07 L Hgb 8.4 L Hct 28.2 L MCV 91.9 MCH 27.4 MCHC 29.8 L RDW 15.9 H Plt Count 319 MPV 8.9 Immature Gran % (Auto) 2.9 H Neut % (Auto) 66.9 Lymph % (Auto) 12.8 L [place] % (Auto) 15.3 H Eos % (Auto) 1.5 Baso % (Auto) 0.6 Lymph # (Auto) 1.21 [place] # (Auto) 1.5 H Eos # (Auto) 0.1 Baso # (Auto) 0.1 Abs Immat Gran (auto) 0.27 H Absolute Neuts (auto) 6.3 Absolute Nucleated RBC 0.000 Nucleated RBC % 0.0 Platelet Estimate Adequate Hypochromasia 1+ Anisocytosis 1+ Schistocytes None seen POC Capillary Glucose 89 91 Quality VTE Prophylaxis VTE prophylaxis: pharmacologic ordered
[2024-09-24 09:37] LABS: Alanine Aminotransferase 13 U/L (6-50); Albumin Level 2.8 g/dL (3.5-5.1); Alkaline Phosphatase 64 U/L (38-126); Anion Gap 4 mmol/L (4-12); Aspartate Amino Transferase 22 U/L (17-59); Bilirubin,Total 0.9 mg/dL (0.2-1.3); Blood Urea Nitrogen 11 mg/dL (9-20); Calcium 8.2 mg/dL (8.4-10.2); Carbon Dioxide 28 mmol/L (22-30); Chloride 105 mmol/L (98-107); Estimated CRCL calculation 125 ml/min; Estimated Glomerular Filt Rate > 60; Glucose 88 mg/dL (65-110); Magnesium 2.1 mg/dL (1.6-2.3); Sodium 137 mmol/L (137-145)
[2024-09-24] MEDS: ENOXAPARIN 40 MG/0.4 ML SYRINGE SUB-Q (09:43)
[2024-09-24] MEDS: EMPAGLIFLOZIN 10 MG TABLET PO (09:43)
[2024-09-24] MEDS: polyethylene glycoL 3350 17 GM POWD.PACK PO (09:43)
[2024-09-24] MEDS: lisinopriL 10 MG TABLET PO (09:43)
[2024-09-24] MEDS: ROSUVASTATIN 10 MG TABLET PO (09:43)
[2024-09-24] MEDS: ASPIRIN 81 MG ENTERIC TABLET PO (09:43)
[2024-09-24] MEDS: SODIUM CHLORIDE 0.9% IV 1,000 ML 100 ML IV CONT ×2 (09:44→23:59)
[2024-09-24] MEDS: IRON SUCROSE COMPLEX 100 MG in SODIUM CHLORIDE 0.9% IV 50 ML 220 MG IVPB (10:11)
[2024-09-24] MEDS: oxyCODONE/ACETAMINOPHEN (*CRX) 10-325 MG TABLET 1 TAB PO (11:02)
[2024-09-24 11:48] LABS: Glucose Point of Care 132 mg/dl (65-105)
--- NOTE | 2024-09-24 12:57 | WPDHPUPDATE1 ---
History and Physical Update Update Date/Time: 09/24/24 12:57 History and Physical has been reviewed, including an updated exam of the patient. There are NO changes in the patient's condition. Risks, benefits, and alternatives have been discussed and questions answered. Patient agrees to proceed with procedure.
--- NOTE | 2024-09-24 15:00 | PM.PNGS ---
Progress Note: A&P Assessment and Plan (1) Abscess of left leg: Code(s): L02.416 - Cutaneous abscess of left lower limb Status: Acute Assessment and Plan: Long pocket draining purulent fluid lateral and posterior calf area left leg. All other abscess drainage sites are clean and hemostatic. I changed the dressing with the wound nurses. Will take the patient back to the operating room today and open this last pocket to complete the incision and drainage of the multiple abscesses of the left lower leg. (2) Cellulitis of left leg: Code(s): L03.116 - Cellulitis of left lower limb Status: Acute Assessment and Plan: With abscess (3) Venous stasis dermatitis of both lower extremities: Code(s): I87.2 - Venous insufficiency (chronic) (peripheral) Status: Chronic Assessment and Plan: Excessive venous stasis changes of both lower legs with multiple abscesses on the left leg. Subjective Subjective Date/Time Seen: 09/24/24 15:00 Patient reports: no new complaints, tolerating a regular diet and afebrile Exam Const: General: comfortable, alert and awake Extrem: Left lower extremity: lower leg (Nearly all abscess wounds are dry, large pocket proximal, posterior lateral) Details: tenderness and other (Abundant purulent fluid from this pocket); no crepitus Objective Data Vital Signs Vital Signs: Vital Signs - 24 hr 09/23/24 15:14 09/23/24 17:47 09/23/24 18:00 Temperature 36.1 C L 37.1 C Pulse Rate 121 H 100 78 Respiratory Rate 18 24 H 22 H Blood Pressure 116/48 L 108/62 113/51 L Pulse Oximetry 95 100 99 Oxygen Delivery Room Air Simple Face Mask Simple Face Mask Oxygen Flow Rate 6 6 09/23/24 18:15 09/23/24 18:23 09/23/24 18:30 Temperature Pulse Rate 82 72 Respiratory Rate 20 22 H Blood Pressure 111/47 L 113/51 L Pulse Oximetry 100 96 Oxygen Delivery Simple Face Mask Room Air Room Air Oxygen Flow Rate 6 09/23/24 18:45 09/23/24 19:00 09/23/24 19:01 Temperature 36.8 C 36.2 C L Pulse Rate 77 72 117 H Respiratory Rate 22 H 22 H 18 Blood Pressure 113/81 133/67 125/51 L Pulse Oximetry 96 95 98 Oxygen Delivery Room Air Room Air Oxygen Flow Rate 09/23/24 19:16 09/23/24 19:46 09/23/24 20:00 Temperature 36.4 C L 36.6 C Pulse Rate 78 107 H Respiratory Rate 26 H 24 H Blood Pressure 130/60 113/59 L Pulse Oximetry 98 100 Oxygen Delivery Room Air Oxygen Flow Rate 09/23/24 20:00 09/23/24 20:46 09/24/24 00:00 Temperature 36.7 C Pulse Rate 137 H 95 94 Respiratory Rate 22 H Blood Pressure 107/46 L Pulse Oximetry 95 Oxygen Delivery Oxygen Flow Rate 09/24/24 00:46 09/24/24 04:46 09/24/24 08:03 Temperature 36.5 C 36.7 C Pulse Rate 108 H 87 104 H Respiratory Rate 24 H 22 H Blood Pressure 130/64 126/49 L Pulse Oximetry 94 95 Oxygen Delivery Oxygen Flow Rate 09/24/24 08:46 09/24/24 13:33 Temperature 36.6 C 36.9 C Pulse Rate 131 H 121 H Respiratory Rate 18 20 Blood Pressure 124/51 L 135/57 L Pulse Oximetry 97 97 Oxygen Delivery Room Air Oxygen Flow Rate Intake/Output Intake/Output: Intake & Output 09/21/24 09/22/24 09/23/24 09/24/24 23:59 23:59 23:59 23:59 Intake Total 2660 890 Balance 2660 890 Meds/Results Medications: Active Medications Generic Name Dose Route Start Last Admin Trade Name Freq PRN Reason Stop Dose Admin Acetaminophen 500 mg 09/23/24 19:01 Acetaminophen 500 Mg Tablet PO Q6H PRN Pain Rated 1-3 Aspirin 81 mg 09/23/24 09:00 09/24/24 09:43 Aspirin 81 Mg Enteric Tablet PO 81 mg DAILY ISABELLE Administration Dextrose 12.5 gm 09/22/24 23:19 Dextrose 50% 25 Gm/50 Ml Syringe IV PUSH PRN PRN Hypoglycemia Protocol Empagliflozin 10 mg 09/23/24 09:00 09/24/24 09:43 Empagliflozin 10 Mg Tablet PO 10 mg DAILY ISABELLE Administration Enoxaparin Sodium 40 mg 09/23/24 09:00 09/24/24 09:43 Enoxaparin 40 Mg/0.4 Ml Syringe SUB-Q 40 mg DAILY ISABELLE Administration Glucagon 1 mg 09/22/24 23:19 Glucagon For Inj 1 Mg Vial IM PRN PRN Hypoglycemia Protocol Glucose 15 gm 09/22/24 23:19 Glucose Oral Gel 15 Gm Of Glucse In 37.5 Gm Tube PO PRN PRN Hypoglycemia Protocol Dextrose 1,000 mls @ 100 mls/hr 09/22/24 23:19 Dextrose 5% 1,000 Ml IVPB PRN PRN Hypoglycemia Protocol Cefazolin Sodium 2 gm in 50 mls @ 100 mls/hr 09/23/24 14:00 09/24/24 05:35 Ancef 2 Gm/D5w 50 Ml IVPB 100 mls/hr Q8HR ISABELLE Administration Ibuprofen 800 mg in 200 mls @ 400 mls/hr 09/23/24 19:01 Caldolor 800 Mg/200 Ml IVPB Q6H PRN Breakthrough Pain Rated 1-3 or NPO Sodium Chloride 1,000 mls @ 100 mls/hr 09/24/24 09:25 09/24/24 09:44 Normal Saline Iv IV CONT 100 mls/hr .Q10H ISABELLE Administration Insulin Aspart 3 - 6 units 09/23/24 08:00 09/24/24 14:00 Insulin Aspart (*Bkc) 100 Units/Ml SUB-Q Not Given TIDWM [facility] Protocol Insulin Glargine 20 units 09/23/24 09:00 09/24/24 09:39 Insulin Glargine (*Bkc) 100 Units/Ml SUB-Q Not Given DAILY [facility] Lisinopril 10 mg 09/23/24 09:00 09/24/24 09:43 Lisinopril 10 Mg Tablet PO 10 mg DAILY ISABELLE Administration Morphine Sulfate 2 mg 09/23/24 19:01 Morphine Sulfate (*Crx) 2 Mg/Ml Inj IV PUSH Q2H PRN Breakthrough Pain Rated 4-6 or NPO Morphine Sulfate 4 mg 09/23/24 19:01 Morphine Sulfate (*Crx) 4 Mg/Ml Inj IV PUSH Q2H PRN Breakthrough Pain Rated 7-10 or NPO Ondansetron HCl 4 mg 09/22/24 16:38 Ondansetron Inj 4 Mg/2 Ml Vial IV PUSH Q4H PRN Nausea Oxycodone/Acetaminophen 1 tablet 09/23/24 19:01 Oxycodone/Acetaminophen (*Crx) 5-325 Mg Tablet PO Q4H PRN Pain Rated 4-6 Oxycodone/Acetaminophen 1 tab 09/23/24 19:01 09/24/24 11:02 Oxycodone/Acetaminophen (*Crx) 10-325 Mg Tablet PO 1 tab Q6H PRN Administration Pain Rated 7-10 Polyethylene Glycol 17 gm 09/24/24 09:00 09/24/24 09:43 Polyethylene Glycol 3350 17 Gm Powd.Pack PO 17 gm QAM ISABELLE Administration Rosuvastatin Calcium 10 mg 09/23/24 09:00 09/24/24 09:43 Rosuvastatin 10 Mg Tablet PO 10 mg DAILY ISABELLE Administration Senna/Docusate Sodium 2 tab 09/23/24 21:00 09/23/24 20:03 Senna/Docusate Sodium Tablet PO Not Given HS [facility] Radiology Results: ITS Impressions Venous Doppler Study 09/23/24 21:34 IMPRESSION: Negative bilateral lower extremity venous US. No deep vein thrombosis. Labs Labs: Laboratory Results - last 24 hr 09/23/24 09/23/24 09/23/24 15:20 17:55 19:57 WBC RBC Hgb Hct MCV MCH MCHC RDW Plt Count MPV Immature Gran % (Auto) Neut % (Auto) Lymph % (Auto) [place] % (Auto) Eos % (Auto) Baso % (Auto) Lymph # (Auto) [place] # (Auto) Eos # (Auto) Baso # (Auto) Abs Immat Gran (auto) Absolute Neuts (auto) Absolute Nucleated RBC Nucleated RBC % Platelet Estimate Hypochromasia Anisocytosis Schistocytes Sodium Potassium Chloride Carbon Dioxide Anion Gap BUN Creatinine Estim Creat Clear Calc Estimated GFR Glucose POC Capillary Glucose 96 105 89 Calcium Magnesium Total Bilirubin AST ALT Alkaline Phosphatase Total Protein Albumin 09/24/24 09/24/24 09/24/24 07:39 07:40 11:37 WBC 9.5 RBC 3.07 L Hgb 8.4 L Hct 28.2 L MCV 91.9 MCH 27.4 MCHC 29.8 L RDW 15.9 H Plt Count 319 MPV 8.9 Immature Gran % (Auto) 2.9 H Neut % (Auto) 66.9 Lymph % (Auto) 12.8 L [place] % (Auto) 15.3 H Eos % (Auto) 1.5 Baso % (Auto) 0.6 Lymph # (Auto) 1.21 [place] # (Auto) 1.5 H Eos # (Auto) 0.1 Baso # (Auto) 0.1 Abs Immat Gran (auto) 0.27 H Absolute Neuts (auto) 6.3 Absolute Nucleated RBC 0.000 Nucleated RBC % 0.0 Platelet Estimate Adequate Hypochromasia 1+ Anisocytosis 1+ Schistocytes None seen Sodium 137 Potassium 4.0 Chloride 105 Carbon Dioxide 28 Anion Gap 4 BUN 11 D Creatinine 0.60 L Estim Creat Clear Calc 125 Estimated GFR > 60 Glucose 88 POC Capillary Glucose 91 132 H Calcium 8.2 L Magnesium 2.1 Total Bilirubin 0.9 AST 22 ALT 13 Alkaline Phosphatase 64 Total Protein 6.0 L Albumin 2.8 L
[2024-09-24] MEDS: LIDO 1%/EPINEPHRINE 1:100,000 20 ML VIAL 30 ML INFILTRATE (15:20)
--- NOTE | 2024-09-24 16:05 | P.OP_ITS ---
Procedure Note - Detailed Date of Procedure 09/24/24 Pre-op Diagnosis Multiple left leg abscesses, severe stasis dermatitis Post-op Diagnosis Same Procedure Performed Incision and drainage long tracking abscess left lower leg, lateral and posterior Surgeon Oleg Gandhi MD Anesthesia Local Indications At dressing change today, nearly all abscesses were dry and no evidence of purulence. However, 1 of the upper anterolateral flaps showed abundant purulent drainage. Probing this showed an extensive tract lateral and posterior about the level of the upper calf. Patient is taken to surgery now for incision and drainage. He has eaten a full breakfast and this will be done under local anesthesia. Findings Very long tract of purulent abscess between subcutaneous and muscular fascia as had been the multiple other abscesses drained yesterday. Description of Procedure Patient was in right lateral decubitus position. Gentle probing revealed the long abscess. Local anesthetic was infiltrated into the skin and subcutaneous. Extensive local was administered until it seemed to be fairly comfortable. Incision was made and this went from anteromedial lateral and to posterior lateral almost transversely. Old blood, clot, purulent fluid was able to be removed. The abscess cavity then tracked even further posteriorly. It continued in a transverse path but ended just short of posterior midline. Addit ional local was infiltrated thoroughly. This was opened as well. Purulent fluid, loculations, old blood were removed. There was a small pocket at the more posterior aspect of the tract. This was opened with a longitudinal incision. The new abscess drainage incision now looked good. It was packed with 2 in iodoform Nu Gauze. We then dressed all the remaining wounds with silver gel. Fluffs and multiple ABDs were placed. Two rolls of Kerlix were then used to wrap the left lower leg. Patient was returned to a supine position. He was taken back to his room in stable condition. Sponge and needle counts were correct x2. Estimated Blood Loss -30 Drains No Packing Yes Pathology None sent Complications None Condition Stable Disposition Floor [facility] Billing Surgery - Charge Forward: Surgery Billing (Incision and drainage complex left leg abscess)
[2024-09-24] MEDS: oxyCODONE/ACETAMINOPHEN (*CRX) 5-325 MG TABLET 1 TABLET PO (16:25)
[2024-09-24 16:41] LABS: Glucose Point of Care 84 mg/dl (65-105)
[2024-09-24 20:43] LABS: Glucose Point of Care 146 mg/dl (65-105)
[2024-09-24] MEDS: SENNA/DOCUSATE SODIUM TABLET 2 TAB PO (21:39)
[2024-09-25] VITALS (10 sets, daily range): BP systolic 128–152; BP diastolic 53–71; PULSE 74–140; RESP 22; TEMP 36.7–37.2; O2SAT 94–98
[2024-09-25] MEDS: ceFAZolin 2 GM/D5W 50 ML 2 GM/50 ML BAG IVPB ×3 (05:22→21:08)
[2024-09-25 07:32] LABS: Basophils Absolute Auto 0.1 K/mm3 (0.0-0.1); Basophils Percent Auto 0.7 % (0.2-1.2); Eosinophils Absolute Auto 0.3 K/mm3 (0-0.3); Eosinophils Percent Auto 2.5 % (0-4.4); Hematocrit 28.3 % (42.0-52.0); Hemoglobin 8.4 g/dL (14.0-18.0); Immature Granulocyte Absolute 0.47 K/mm3 (0.00-0.031); Immature Granulocyte Percent A 4.5 % (0-0.5); Lymphocytes Absolute Auto 1.11 K/mm3 (0.9-3.2); Lymphocytes Percent Auto 10.6 % (18.3-44.2); Mean Corpuscular HGB Conc 29.7 g/dl (32-36); Mean Corpuscular Hemoglobin 27.6 pg (26-34); Mean Corpuscular Volume 93.1 fl (80-100); Mean Platelet Volume 8.8 fl (7.4-10.4); Monocytes Absolute Auto 1.3 K/mm3 (0.1-0.6); Monocytes Percent Auto 12.5 % (2.6-8.5); Neutrophils Absolute Auto 7.2 K/mm3 (1.3-6.7); Neutrophils Percent Auto 69.2 % (45.5-73.1); Platelet Count Result 334 k/mm3 (150-375); Red Blood Count 3.04 M/mm3 (4.6-6.20); Red Cell Distribution Width 15.9 % (11.5-14.5); White Blood Count 10.4 K/mm3 (4.5-10.0)
[2024-09-25 07:38] LABS: Glucose Point of Care 105 mg/dl (65-105)
[2024-09-25 07:49] LABS: Alanine Aminotransferase 14 U/L (6-50); Alkaline Phosphatase 57 U/L (38-126); Anion Gap 5 mmol/L (4-12); Aspartate Amino Transferase 21 U/L (17-59); Blood Urea Nitrogen 8 mg/dL (9-20); Calcium 8.3 mg/dL (8.4-10.2); Carbon Dioxide 27 mmol/L (22-30); Chloride 107 mmol/L (98-107); Estimated CRCL calculation 147 ml/min; Estimated Glomerular Filt Rate > 60; Glucose 109 mg/dL (65-110); Magnesium 2.2 mg/dL (1.6-2.3); Potassium 3.9 mmol/L (3.4-5.0); Sodium 139 mmol/L (137-145)
[2024-09-25 08:12] LABS: Hypochromasia 1+; Platelet Estimate Adequate (Adequate)
[2024-09-25 08:13] LABS: Anisocytosis 2+; Schistocytes None Seen
[2024-09-25] MEDS: lisinopriL 10 MG TABLET PO (08:42)
[2024-09-25] MEDS: ROSUVASTATIN 10 MG TABLET PO (08:42)
[2024-09-25] MEDS: polyethylene glycoL 3350 17 GM POWD.PACK PO (08:43)
[2024-09-25] MEDS: EMPAGLIFLOZIN 10 MG TABLET PO (08:43)
[2024-09-25] MEDS: ENOXAPARIN 40 MG/0.4 ML SYRINGE SUB-Q (08:43)
[2024-09-25] MEDS: ASPIRIN 81 MG ENTERIC TABLET PO (08:43)
--- NOTE | 2024-09-25 10:53 | PM.IMPN ---
Progress Note: A&P Assessment and Plan (1) Cellulitis of left leg: Code(s): L03.116 - Cellulitis of left lower limb Status: Acute Assessment and Plan: -chronic wounds bilateral lower extremities due to PVD and lymphedema, worse on left -Significantly more swollen and red than right leg -Pus drainage from kearney wound cultured in ER will order doppler to r/u DVT- negative surgery consult- I/D multiple abscess 1/3 follow wound culture results (2) Diabetes type 2: Code(s): E11.9 - Type 2 diabetes mellitus without complications Status: Acute Assessment and Plan: -HGB A1c 8.3 -ACHS Fingerstick glucose -Resume home Lantus 20 units and SSI hypoglycemia protocol held lantus for the last couple of mornings will add protein supplement (3) Hypertension: Code(s): I10 - Essential (primary) hypertension Status: Acute Assessment and Plan: -Blood pressure reviewed and stable -Continue home medications (4) Hyperlipidemia: Code(s): E78.5 - Hyperlipidemia, unspecified Status: Acute Assessment and Plan: -Continue Crestor (5) Iron deficiency anemia: Code(s): D50.9 - Iron deficiency anemia, unspecified Status: Acute Assessment and Plan: -Chronic anemia noted on labs -Ordered anemia labs B12/Folate, iron/TIBC and ferritin -Iron count and %saturation quite low- will order replacement iV Time Spent With Patient Time with patient: Greater than 35 minutes Subjective Date/time seen: 09/25/24 10:53 Interval history: his is a 74-year-old male patient with a history hypertension hyperlipidemia diabetes is admitted for left lower extremity cellulitis/possible abscess. Patient as peripheral vascular disease has been getting wounds and blisters his lower extremities. The leg has more red more swollen than usual. He had previously been oral doxycycline for months that has not helped. Patient reported initially he was a little short of breath on arrival to the emergency department they placed him oxygen temporarily and discontinued it and he has been short of breath since. Patient does not take a water pill. Echocardiogram in May 2024 showed Grade 1 diastolic dysfunction. I/D with Dr Gandhi yesterday 09/23. cultures were obtained. To OR for i/d again today under a local anesthesia. Pt is seen and examined. vs reviewed. HR better. he is feeling better overall, appetite improved. Review of Systems Review of Systems: All systems reviewed & are unremarkable except as noted in HPI and below Cardiovascular: Cardiovascular: Denies chest pain Respiratory: Respiratory: Denies chest congestion Gastrointestinal: Gastrointestinal: Denies abdominal pain Exam Narrative: GENERAL: Well-appearing, well-nourished, and in no acute distress. HEAD: Normocephalic, atraumatic. ENT: Mucous membranes moist. NECK: Supple. CHEST: Clear to auscultation. No respiratory distress. HEART: Regular rate and rhythm. Normal peripheral pulses. ABDOMEN: Soft, nontender, nondistended. EXTREMITIES: Normal range of motion. Chronic venous stasis changes of bilateral lower extremities. SKIN: Warm, dry. Chronic ulcer shins of the lateral aspects lower legs near the ankle. Purulent drainage from anterior kearney wounds on left lower extremity. Significant erythema swelling to the left leg compared to the right. NEURO: Alert and oriented x3. PSYCH: Normal mood and affect. Objective Data Vital Signs Vital Signs: Vital Signs - 24 hr 09/24/24 12:00 09/24/24 13:33 09/24/24 14:55 Temperature 98.5 F Pulse Rate 140 H 121 H 87 Respiratory Rate 20 20 Blood Pressure 135/57 L 124/62 Pulse Oximetry 97 95 Oxygen Delivery Room Air Room Air 09/24/24 15:05 09/24/24 15:15 09/24/24 15:25 Temperature Pulse Rate 92 83 84 Respiratory Rate 20 20 20 Blood Pressure 117/65 116/58 L 118/60 Pulse Oximetry 97 98 94 Oxygen Delivery Room Air Room Air Room Air 09/24/24 15:59 09/24/24 16:00 09/24/24 16:05 Temperature 97.6 F 97.6 F Pulse Rate 70 100 95 Respiratory Rate 17 17 Blood Pressure 134/91 H 134/91 H Pulse Oximetry 98 99 Oxygen Delivery 09/24/24 16:44 09/24/24 17:50 09/24/24 20:00 Temperature 96.6 F L Pulse Rate 88 95 Respiratory Rate 16 Blood Pressure 134/47 L 130/57 L Pulse Oximetry 99 Oxygen Delivery 09/24/24 20:46 09/24/24 21:28 09/25/24 00:00 Temperature 97.9 F Pulse Rate 72 109 H Respiratory Rate 22 H Blood Pressure 126/65 Pulse Oximetry 96 Oxygen Delivery Room Air 09/25/24 04:00 09/25/24 06:00 09/25/24 08:02 Temperature 98.1 F Pulse Rate 97 104 H 95 Respiratory Rate 22 H Blood Pressure 152/71 H Pulse Oximetry 94 Oxygen Delivery Intake/Output Intake/Output: Intake & Output 09/22/24 09/23/24 09/24/24 09/25/24 23:59 23:59 23:59 23:59 Intake Total 2660 3040 290 Balance 2660 3040 290 Meds/Results Medications: Active Medications Generic Name Dose Route Start Last Admin Trade Name Freq PRN Reason Stop Dose Admin Acetaminophen 500 mg 09/23/24 19:01 Acetaminophen 500 Mg Tablet PO Q6H PRN Pain Rated 1-3 Aspirin 81 mg 09/23/24 09:00 09/25/24 08:43 Aspirin 81 Mg Enteric Tablet PO 81 mg DAILY ISABELLE Administration Dextrose 12.5 gm 09/22/24 23:19 Dextrose 50% 25 Gm/50 Ml Syringe IV PUSH PRN PRN Hypoglycemia Protocol Empagliflozin 10 mg 09/23/24 09:00 09/25/24 08:43 Empagliflozin 10 Mg Tablet PO 10 mg DAILY ISABELLE Administration Enoxaparin Sodium 40 mg 09/23/24 09:00 09/25/24 08:43 Enoxaparin 40 Mg/0.4 Ml Syringe SUB-Q 40 mg DAILY ISABELLE Administration Glucagon 1 mg 09/22/24 23:19 Glucagon For Inj 1 Mg Vial IM PRN PRN Hypoglycemia Protocol Glucose 15 gm 09/22/24 23:19 Glucose Oral Gel 15 Gm Of Glucse In 37.5 Gm Tube PO PRN PRN Hypoglycemia Protocol Dextrose 1,000 mls @ 100 mls/hr 09/22/24 23:19 Dextrose 5% 1,000 Ml IVPB PRN PRN Hypoglycemia Protocol Cefazolin Sodium 2 gm in 50 mls @ 100 mls/hr 09/23/24 14:00 09/25/24 05:52 Ancef 2 Gm/D5w 50 Ml IVPB Infused Q8HR ISABELLE Infusion Ibuprofen 800 mg in 200 mls @ 400 mls/hr 09/23/24 19:01 Caldolor 800 Mg/200 Ml IVPB Q6H PRN Breakthrough Pain Rated 1-3 or NPO Sodium Chloride 1,000 mls @ 100 mls/hr 09/24/24 09:25 09/24/24 23:59 Normal Saline Iv IV CONT 100 mls/hr .Q10H ISABELLE Administration Insulin Aspart 3 - 6 units 09/23/24 08:00 09/25/24 08:37 Insulin Aspart (*Bkc) 100 Units/Ml SUB-Q Not Given TIDWM [facility] Protocol Insulin Glargine 20 units 09/23/24 09:00 09/25/24 08:41 Insulin Glargine (*Bkc) 100 Units/Ml SUB-Q Not Given DAILY [facility] Lisinopril 10 mg 09/23/24 09:00 09/25/24 08:42 Lisinopril 10 Mg Tablet PO 10 mg DAILY [facility] Administration Morphine Sulfate 2 mg 09/23/24 19:01 Morphine Sulfate (*Crx) 2 Mg/Ml Inj IV PUSH Q2H PRN Breakthrough Pain Rated 4-6 or NPO Morphine Sulfate 4 mg 09/23/24 19:01 Morphine Sulfate (*Crx) 4 Mg/Ml Inj IV PUSH Q2H PRN Breakthrough Pain Rated 7-10 or NPO Ondansetron HCl 4 mg 09/22/24 16:38 Ondansetron Inj 4 Mg/2 Ml Vial IV PUSH Q4H PRN Nausea Oxycodone/Acetaminophen 1 tablet 09/23/24 19:01 09/24/24 16:25 Oxycodone/Acetaminophen (*Crx) 5-325 Mg Tablet PO 1 tablet Q4H PRN Administration Pain Rated 4-6 Oxycodone/Acetaminophen 1 tab 09/23/24 19:01 09/24/24 11:02 Oxycodone/Acetaminophen (*Crx) 10-325 Mg Tablet PO 1 tab Q6H PRN Administration Pain Rated 7-10 Polyethylene Glycol 17 gm 09/24/24 09:00 09/25/24 08:43 Polyethylene Glycol 3350 17 Gm Powd.Pack PO 17 gm QAM ISABELLE Administration Rosuvastatin Calcium 10 mg 09/23/24 09:00 09/25/24 08:42 Rosuvastatin 10 Mg Tablet PO 10 mg DAILY [facility] Administration Senna/Docusate Sodium 2 tab 09/23/24 21:00 09/24/24 21:39 Senna/Docusate Sodium Tablet PO 2 tab HS ISABELLE Administration Radiology Results: ITS Impressions Venous Doppler Study 09/23/24 21:34 IMPRESSION: Negative bilateral lower extremity venous US. No deep vein thrombosis. Labs Labs: Laboratory Results - last 24 hr 09/24/24 09/24/24 09/24/24 11:37 16:33 20:21 WBC RBC Hgb Hct MCV MCH MCHC RDW Plt Count MPV Immature Gran % (Auto) Neut % (Auto) Lymph % (Auto) [place] % (Auto) Eos % (Auto) Baso % (Auto) Lymph # (Auto) [place] # (Auto) Eos # (Auto) Baso # (Auto) Abs Immat Gran (auto) Absolute Neuts (auto) Absolute Nucleated RBC Nucleated RBC % Platelet Estimate Hypochromasia Anisocytosis Schistocytes Sodium Potassium Chloride Carbon Dioxide Anion Gap BUN Creatinine Estim Creat Clear Calc Estimated GFR Glucose POC Capillary Glucose 132 H 84 146 H Calcium Magnesium Total Bilirubin AST ALT Alkaline Phosphatase Total Protein Albumin 09/25/24 09/25/24 07:00 07:21 WBC 10.4 H RBC 3.04 L Hgb 8.4 L Hct 28.3 L MCV 93.1 MCH 27.6 MCHC 29.7 L RDW 15.9 H Plt Count 334 MPV 8.8 Immature Gran % (Auto) 4.5 H Neut % (Auto) 69.2 Lymph % (Auto) 10.6 L [place] % (Auto) 12.5 H Eos % (Auto) 2.5 Baso % (Auto) 0.7 Lymph # (Auto) 1.11 [place] # (Auto) 1.3 H Eos # (Auto) 0.3 Baso # (Auto) 0.1 Abs Immat Gran (auto) 0.47 H Absolute Neuts (auto) 7.2 H Absolute Nucleated RBC 0.000 Nucleated RBC % 0.0 Platelet Estimate Adequate Hypochromasia 1+ Anisocytosis 2+ Schistocytes None seen Sodium 139 Potassium 3.9 Chloride 107 Carbon Dioxide 27 Anion Gap 5 BUN 8 L Creatinine 0.50 L Estim Creat Clear Calc 147 Estimated GFR > 60 Glucose 109 POC Capillary Glucose 105 Calcium 8.3 L Magnesium 2.2 Total Bilirubin 1.0 AST 21 ALT 14 Alkaline Phosphatase 57 Total Protein 6.0 L Albumin 3.0 L Quality VTE Prophylaxis VTE prophylaxis: pharmacologic ordered
[2024-09-25] MEDS: SODIUM CHLORIDE 0.9% IV 1,000 ML 100 ML IV CONT (11:02)
--- NOTE | 2024-09-25 11:15 | PM.PNGS ---
Progress Note: A&P Assessment and Plan (1) Abscess of left leg: Code(s): L02.416 - Cutaneous abscess of left lower limb Status: Acute Assessment and Plan: cont local wound care and abx, await cx Subjective Subjective Date/Time Seen: 09/25/24 11:15 Interval history: no acute issues, no c/o Review of Systems Review of Systems: All systems reviewed & are unremarkable except as noted in HPI and below Exam Const: General: cooperative, comfortable, no acute distress and ill appearing GI: Inspection: normal to inspection Extrem: Other: LLE - dressing change done, decreased swelling, good drainage Objective Data Vital Signs Vital Signs: Vital Signs - 24 hr 09/24/24 12:00 09/24/24 13:33 09/24/24 14:55 Temperature 36.9 C Pulse Rate 140 H 121 H 87 Respiratory Rate 20 20 Blood Pressure 135/57 L 124/62 Pulse Oximetry 97 95 Oxygen Delivery Room Air Room Air 09/24/24 15:05 09/24/24 15:15 09/24/24 15:25 Temperature Pulse Rate 92 83 84 Respiratory Rate 20 20 20 Blood Pressure 117/65 116/58 L 118/60 Pulse Oximetry 97 98 94 Oxygen Delivery Room Air Room Air Room Air 09/24/24 15:59 09/24/24 16:00 09/24/24 16:05 Temperature 36.4 C 36.4 C Pulse Rate 70 100 95 Respiratory Rate 17 17 Blood Pressure 134/91 H 134/91 H Pulse Oximetry 98 99 Oxygen Delivery 09/24/24 16:44 09/24/24 17:50 09/24/24 20:00 Temperature 35.9 C L Pulse Rate 88 95 Respiratory Rate 16 Blood Pressure 134/47 L 130/57 L Pulse Oximetry 99 Oxygen Delivery 09/24/24 20:46 09/24/24 21:28 09/25/24 00:00 Temperature 36.6 C Pulse Rate 72 109 H Respiratory Rate 22 H Blood Pressure 126/65 Pulse Oximetry 96 Oxygen Delivery Room Air 09/25/24 04:00 09/25/24 06:00 09/25/24 08:02 Temperature 36.7 C Pulse Rate 97 104 H 95 Respiratory Rate 22 H Blood Pressure 152/71 H Pulse Oximetry 94 Oxygen Delivery Intake/Output Intake/Output: Intake & Output 09/22/24 09/23/24 09/24/2409/25/25 23:59 23:59 23:59 23:59 Intake Total 2660 3040 1290 Balance 2660 3040 1290 Meds/Results Medications: Active Medications Generic Name Dose Route Start Last Admin Trade Name Freq PRN Reason Stop Dose Admin Acetaminophen 500 mg 09/23/24 19:01 Acetaminophen 500 Mg Tablet PO Q6H PRN Pain Rated 1-3 Aspirin 81 mg 09/23/24 09:00 09/25/24 08:43 Aspirin 81 Mg Enteric Tablet PO 81 mg DAILY ISABELLE Administration Dextrose 12.5 gm 09/22/24 23:19 Dextrose 50% 25 Gm/50 Ml Syringe IV PUSH PRN PRN Hypoglycemia Protocol Empagliflozin 10 mg 09/23/24 09:00 09/25/24 08:43 Empagliflozin 10 Mg Tablet PO 10 mg DAILY ISABELLE Administration Enoxaparin Sodium 40 mg 09/23/24 09:00 09/25/24 08:43 Enoxaparin 40 Mg/0.4 Ml Syringe SUB-Q 40 mg DAILY ISABELLE Administration Glucagon 1 mg 09/22/24 23:19 Glucagon For Inj 1 Mg Vial IM PRN PRN Hypoglycemia Protocol Glucose 15 gm 09/22/24 23:19 Glucose Oral Gel 15 Gm Of Glucse In 37.5 Gm Tube PO PRN PRN Hypoglycemia Protocol Dextrose 1,000 mls @ 100 mls/hr 09/22/24 23:19 Dextrose 5% 1,000 Ml IVPB PRN PRN Hypoglycemia Protocol Cefazolin Sodium 2 gm in 50 mls @ 100 mls/hr 09/23/24 14:00 09/25/24 05:52 Ancef 2 Gm/D5w 50 Ml IVPB Infused Q8HR [facility] Infusion Ibuprofen 800 mg in 200 mls @ 400 mls/hr 09/23/24 19:01 Caldolor 800 Mg/200 Ml IVPB Q6H PRN Breakthrough Pain Rated 1-3 or NPO Sodium Chloride 1,000 mls @ 100 mls/hr 09/24/24 09:25 09/25/24 11:02 Normal Saline Iv IV CONT 100 mls/hr .Q10H ISABELLE Administration Insulin Aspart 3 - 6 units 09/23/24 08:00 09/25/24 08:37 Insulin Aspart (*Bkc) 100 Units/Ml SUB-Q Not Given TIDWM [facility]EL[facility] Protocol Insulin Glargine 20 units 09/23/24 09:00 09/25/24 08:41 Insulin Glargine (*Bkc) 100 Units/Ml SUB-Q Not Given DAILY [facility] Lisinopril 10 mg 09/23/24 09:00 09/25/24 08:42 Lisinopril 10 Mg Tablet PO 10 mg DAILY ISABELLE Administration Morphine Sulfate 2 mg 09/23/24 19:01 Morphine Sulfate (*Crx) 2 Mg/Ml Inj IV PUSH Q2H PRN Breakthrough Pain Rated 4-6 or NPO Morphine Sulfate 4 mg 09/23/24 19:01 Morphine Sulfate (*Crx) 4 Mg/Ml Inj IV PUSH Q2H PRN Breakthrough Pain Rated 7-10 or NPO Ondansetron HCl 4 mg 09/22/24 16:38 Ondansetron Inj 4 Mg/2 Ml Vial IV PUSH Q4H PRN Nausea Oxycodone/Acetaminophen 1 tablet 09/23/24 19:01 09/24/24 16:25 Oxycodone/Acetaminophen (*Crx) 5-325 Mg Tablet PO 1 tablet Q4H PRN Administration Pain Rated 4-6 Oxycodone/Acetaminophen 1 tab 09/23/24 19:01 09/24/24 11:02 Oxycodone/Acetaminophen (*Crx) 10-325 Mg Tablet PO 1 tab Q6H PRN Administration Pain Rated 7-10 Polyethylene Glycol 17 gm 09/24/24 09:00 09/25/24 08:43 Polyethylene Glycol 3350 17 Gm Powd.Pack PO 17 gm QAM ISABELLE Administration Rosuvastatin Calcium 10 mg 09/23/24 09:00 09/25/24 08:42 Rosuvastatin 10 Mg Tablet PO 10 mg DAILY [facility] Administration Senna/Docusate Sodium 2 tab 09/23/24 21:00 09/24/24 21:39 Senna/Docusate Sodium Tablet PO 2 tab HS ISABELLE Administration Radiology Results: ITS Impressions Venous Doppler Study 09/23/24 21:34 IMPRESSION: Negative bilateral lower extremity venous US. No deep vein thrombosis. Labs Labs: Laboratory Results - last 24 hr 09/24/24 09/24/24 09/24/24 11:37 16:33 20:21 WBC RBC Hgb Hct MCV MCH MCHC RDW Plt Count MPV Immature Gran % (Auto) Neut % (Auto) Lymph % (Auto) [place] % (Auto) Eos % (Auto) Baso % (Auto) Lymph # (Auto) [place] # (Auto) Eos # (Auto) Baso # (Auto) Abs Immat Gran (auto) Absolute Neuts (auto) Absolute Nucleated RBC Nucleated RBC % Platelet Estimate Hypochromasia Anisocytosis Schistocytes Sodium Potassium Chloride Carbon Dioxide Anion Gap BUN Creatinine Estim Creat Clear Calc Estimated GFR Glucose POC Capillary Glucose 132 H 84 146 H Calcium Magnesium Total Bilirubin AST ALT Alkaline Phosphatase Total Protein Albumin 09/25/24 09/25/24 07:00 07:21 WBC 10.4 H RBC 3.04 L Hgb 8.4 L Hct 28.3 L MCV 93.1 MCH 27.6 MCHC 29.7 L RDW 15.9 H Plt Count 334 MPV 8.8 Immature Gran % (Auto) 4.5 H Neut % (Auto) 69.2 Lymph % (Auto) 10.6 L [place] % (Auto) 12.5 H Eos % (Auto) 2.5 Baso % (Auto) 0.7 Lymph # (Auto) 1.11 [place] # (Auto) 1.3 H Eos # (Auto) 0.3 Baso # (Auto) 0.1 Abs Immat Gran (auto) 0.47 H Absolute Neuts (auto) 7.2 H Absolute Nucleated RBC 0.000 Nucleated RBC % 0.0 Platelet Estimate Adequate Hypochromasia 1+ Anisocytosis 2+ Schistocytes None seen Sodium 139 Potassium 3.9 Chloride 107 Carbon Dioxide 27 Anion Gap 5 BUN 8 L Creatinine 0.50 L Estim Creat Clear Calc 147 Estimated GFR > 60 Glucose 109 POC Capillary Glucose 105 Calcium 8.3 L Magnesium 2.2 Total Bilirubin 1.0 AST 21 ALT 14 Alkaline Phosphatase 57 Total Protein 6.0 L Albumin 3.0 L
[2024-09-25 11:53] LABS: Glucose Point of Care 113 mg/dl (65-105)
[2024-09-25 16:52] LABS: Glucose Point of Care 106 mg/dl (65-105)
[2024-09-25 20:45] LABS: Glucose Point of Care 177 mg/dl (65-105)
[2024-09-25] MEDS: SENNA/DOCUSATE SODIUM TABLET 2 TAB PO (21:07)
[2024-09-26] VITALS (10 sets, daily range): BP systolic 148–155; BP diastolic 58–70; PULSE 81–136; RESP 18–24; TEMP 36.2–37.6; O2SAT 96–98
[2024-09-26] MEDS: ceFAZolin 2 GM/D5W 50 ML 2 GM/50 ML BAG IVPB ×3 (05:33→21:14)
[2024-09-26 06:33] LABS: Influenza A QL RT-PCR Positive (Negative); Influenza B QL RT-PCR Negative (Negative); SARS-CoV-2 RNA PCR Negative (Negative)
[2024-09-26 07:47] LABS: Glucose Point of Care 125 mg/dl (65-105)
[2024-09-26] MEDS: lisinopriL 10 MG TABLET PO (08:09)
[2024-09-26] MEDS: ROSUVASTATIN 10 MG TABLET PO (08:09)
[2024-09-26] MEDS: ASPIRIN 81 MG ENTERIC TABLET PO (08:09)
[2024-09-26] MEDS: polyethylene glycoL 3350 17 GM POWD.PACK PO (08:09)
[2024-09-26] MEDS: EMPAGLIFLOZIN 10 MG TABLET PO (08:09)
[2024-09-26] MEDS: ENOXAPARIN 40 MG/0.4 ML SYRINGE SUB-Q (08:20)
[2024-09-26 08:32] LABS: Basophils Absolute Auto 0.1 K/mm3 (0.0-0.1); Basophils Percent Auto 0.7 % (0.2-1.2); Eosinophils Absolute Auto 0.2 K/mm3 (0-0.3); Eosinophils Percent Auto 2.1 % (0-4.4); Hematocrit 30.6 % (42.0-52.0); Immature Granulocyte Absolute 0.59 K/mm3 (0.00-0.031); Immature Granulocyte Percent A 5.6 % (0-0.5); Lymphocytes Absolute Auto 0.91 K/mm3 (0.9-3.2); Lymphocytes Percent Auto 8.7 % (18.3-44.2); Mean Corpuscular HGB Conc 29.4 g/dl (32-36); Mean Corpuscular Hemoglobin 27.4 pg (26-34); Mean Platelet Volume 8.8 fl (7.4-10.4); Monocytes Absolute Auto 0.9 K/mm3 (0.1-0.6); Monocytes Percent Auto 8.2 % (2.6-8.5); Neutrophils Absolute Auto 7.8 K/mm3 (1.3-6.7); Neutrophils Percent Auto 74.7 % (45.5-73.1); Platelet Count Result 380 k/mm3 (150-375); Red Blood Count 3.29 M/mm3 (4.6-6.20); Red Cell Distribution Width 15.9 % (11.5-14.5); White Blood Count 10.5 K/mm3 (4.5-10.0)
[2024-09-26 08:45] LABS: Alanine Aminotransferase 17 U/L (6-50); Albumin Level 3.3 g/dL (3.5-5.1); Alkaline Phosphatase 70 U/L (38-126); Anion Gap 8 mmol/L (4-12); Aspartate Amino Transferase 25 U/L (17-59); Bilirubin,Total 1.1 mg/dL (0.2-1.3); Blood Urea Nitrogen 7 mg/dL (9-20); Calcium 8.7 mg/dL (8.4-10.2); Carbon Dioxide 25 mmol/L (22-30); Chloride 106 mmol/L (98-107); Estimated CRCL calculation 145 ml/min; Estimated Glomerular Filt Rate > 60; Glucose 124 mg/dL (65-110); Magnesium 2.1 mg/dL (1.6-2.3); Sodium 139 mmol/L (137-145)
[2024-09-26 09:39] LABS: Anisocytosis 1+; Hypochromasia 1+; Platelet Estimate Increased (Adequate); Polychromasia 1+; Schistocytes None Seen
[2024-09-26 11:38] LABS: Glucose Point of Care 249 mg/dl (65-105)
--- NOTE | 2024-09-26 12:05 | PM.IMPN ---
Progress Note: A&P Assessment and Plan (1) Cellulitis of left leg: Code(s): L03.116 - Cellulitis of left lower limb Status: Acute Assessment and Plan: -chronic wounds bilateral lower extremities due to PVD and lymphedema, worse on left -Significantly more swollen and red than right leg -Pus drainage from kearney wound cultured in ER will order doppler to r/u DVT- negative surgery consult- I/D multiple abscess 1/3 wound culture- group B strep on IV antibiotics dressing is c/d/i (2) Diabetes type 2: Code(s): E11.9 - Type 2 diabetes mellitus without complications Status: Acute Assessment and Plan: -HGB A1c 8.3 -ACHS Fingerstick glucose -Resume home Lantus 20 units and SSI hypoglycemia protocol held lantus for the last couple of mornings will add protein supplement (3) Hypertension: Code(s): I10 - Essential (primary) hypertension Status: Acute Assessment and Plan: -Blood pressure reviewed and stable -Continue home medications (4) Hyperlipidemia: Code(s): E78.5 - Hyperlipidemia, unspecified Status: Acute Assessment and Plan: -Continue Crestor (5) Iron deficiency anemia: Code(s): D50.9 - Iron deficiency anemia, unspecified Status: Acute Assessment and Plan: -Chronic anemia noted on labs -Ordered anemia labs B12/Folate, iron/TIBC and ferritin -Iron count and %saturation quite low- will order replacement iV Time Spent With Patient Time with patient: 25 - 35 minutes Subjective Date/time seen: 09/26/24 12:05 Interval history: his is a 74-year-old male patient with a history hypertension hyperlipidemia diabetes is admitted for left lower extremity cellulitis/possible abscess. Patient as peripheral vascular disease has been getting wounds and blisters his lower extremities. The leg has more red more swollen than usual. He had previously been oral doxycycline for months that has not helped. Patient reported initially he was a little short of breath on arrival to the emergency department they placed him oxygen temporarily and discontinued it and he has been short of breath since. Patient does not take a water pill. Echocardiogram in May 2024 showed Grade 1 diastolic dysfunction. I/D with Dr Gandhi yesterday 09/23. cultures were obtained. To OR for i/d again today under a local anesthesia. Pt is seen and examined. vs reviewed. HR better. he is feeling better overall, appetite improved. 1/5- resting in recliner with eyes closed. no acute events overnight. IV antibitoics. no n/v/d. pain is controlled. Review of Systems Review of Systems: All systems reviewed & are unremarkable except as noted in HPI and below Cardiovascular: Cardiovascular: Denies chest pain Respiratory: Respiratory: Denies chest congestion Gastrointestinal: Gastrointestinal: Denies abdominal pain Exam Narrative: GENERAL: Well-appearing, well-nourished, and in no acute distress. HEAD: Normocephalic, atraumatic. ENT: Mucous membranes moist. NECK: Supple. CHEST: Clear to auscultation. No respiratory distress. HEART: Regular rate and rhythm. Normal peripheral pulses. ABDOMEN: Soft, nontender, nondistended. EXTREMITIES: Normal range of motion. Chronic venous stasis changes of bilateral lower extremities. SKIN: Warm, dry. Chronic ulcer shins of the lateral aspects lower legs near the ankle. Purulent drainage from anterior kearney wounds on left lower extremity. Significant erythema swelling to the left leg compared to the right. NEURO: Alert and oriented x3. PSYCH: Normal mood and affect. Objective Data Vital Signs Vital Signs: Vital Signs - 24 hr 09/25/24 14:00 09/25/24 16:02 09/25/24 20:00 Temperature 98.3 F Pulse Rate 74 104 H 89 Respiratory Rate 22 H Blood Pressure 128/53 L Pulse Oximetry 98 Oxygen Delivery 09/25/24 20:47 09/25/24 21:08 09/26/24 00:00 Temperature 98.9 F Pulse Rate 110 H 109 H Respiratory Rate 22 H Blood Pressure 146/62 H Pulse Oximetry 97 97 Oxygen Delivery Room Air 09/26/24 04:00 09/26/24 05:22 09/26/24 08:00 Temperature 98.0 F Pulse Rate 81 106 H 106 H Respiratory Rate 22 H 22 H Blood Pressure 152/70 H Pulse Oximetry 98 98 Oxygen Delivery Room Air Intake/Output Intake/Output: Intake & Output 09/23/24 09/24/24 09/25/24 09/26/24 23:59 23:59 23:59 23:59 Intake Total 2660 3040 4111 1740 Balance 2660 3040 4111 1740 Meds/Results Medications: Active Medications Generic Name Dose Route Start Last Admin Trade Name Freq PRN Reason Stop Dose Admin Acetaminophen 500 mg 09/23/24 19:01 Acetaminophen 500 Mg Tablet PO Q6H PRN Pain Rated 1-3 Aspirin 81 mg 09/23/24 09:00 09/26/24 08:09 Aspirin 81 Mg Enteric Tablet PO 81 mg DAILY ISABELLE Administration Dextrose 12.5 gm 09/22/24 23:19 Dextrose 50% 25 Gm/50 Ml Syringe IV PUSH PRN PRN Hypoglycemia Protocol Empagliflozin 10 mg 09/23/24 09:00 09/26/24 08:09 Empagliflozin 10 Mg Tablet PO 10 mg DAILY ISABELLE Administration Enoxaparin Sodium 40 mg 09/23/24 09:00 09/26/24 08:20 Enoxaparin 40 Mg/0.4 Ml Syringe SUB-Q 40 mg DAILY ISABELLE Administration Glucagon 1 mg 09/22/24 23:19 Glucagon For Inj 1 Mg Vial IM PRN PRN Hypoglycemia Protocol Glucose 15 gm 09/22/24 23:19 Glucose Oral Gel 15 Gm Of Glucse In 37.5 Gm Tube PO PRN PRN Hypoglycemia Protocol Dextrose 1,000 mls @ 100 mls/hr 09/22/24 23:19 Dextrose 5% 1,000 Ml IVPB PRN PRN Hypoglycemia Protocol Cefazolin Sodium 2 gm in 50 mls @ 100 mls/hr 09/23/24 14:00 09/26/24 06:03 Ancef 2 Gm/D5w 50 Ml IVPB Infused Q8HR [facility] Infusion Ibuprofen 800 mg in 200 mls @ 400 mls/hr 09/23/24 19:01 Caldolor 800 Mg/200 Ml IVPB Q6H PRN Breakthrough Pain Rated 1-3 or NPO Insulin Aspart 3 - 6 units 09/23/24 08:00 09/26/24 08:09 Insulin Aspart (*Bkc) 100 Units/Ml SUB-Q Not Given TIDWM [facility] Protocol Insulin Glargine 20 units 09/23/24 09:00 09/25/24 08:41 Insulin Glargine (*Bkc) 100 Units/Ml SUB-Q Not Given DAILY [facility] Lisinopril 10 mg 09/23/24 09:00 09/26/24 08:09 Lisinopril 10 Mg Tablet PO 10 mg DAILY ISABELLE Administration Morphine Sulfate 2 mg 09/23/24 19:01 Morphine Sulfate (*Crx) 2 Mg/Ml Inj IV PUSH Q2H PRN Breakthrough Pain Rated 4-6 or NPO Morphine Sulfate 4 mg 09/23/24 19:01 Morphine Sulfate (*Crx) 4 Mg/Ml Inj IV PUSH Q2H PRN Breakthrough Pain Rated 7-10 or NPO Ondansetron HCl 4 mg 09/22/24 16:38 Ondansetron Inj 4 Mg/2 Ml Vial IV PUSH Q4H PRN Nausea Oxycodone/Acetaminophen 1 tablet 09/23/24 19:01 09/24/24 16:25 Oxycodone/Acetaminophen (*Crx) 5-325 Mg Tablet PO 1 tablet Q4H PRN Administration Pain Rated 4-6 Oxycodone/Acetaminophen 1 tab 09/23/24 19:01 09/24/24 11:02 Oxycodone/Acetaminophen (*Crx) 10-325 Mg Tablet PO 1 tab Q6H PRN Administration Pain Rated 7-10 Polyethylene Glycol 17 gm 09/24/24 09:00 09/26/24 08:09 Polyethylene Glycol 3350 17 Gm Powd.Pack PO 17 gm QAM ISABELLE Administration Rosuvastatin Calcium 10 mg 09/23/24 09:00 09/26/24 08:09 Rosuvastatin 10 Mg Tablet PO 10 mg DAILY ISABELLE Administration Senna/Docusate Sodium 2 tab 09/23/24 21:00 09/25/24 21:07 Senna/Docusate Sodium Tablet PO 2 tab HS ISABELLE Administration Radiology Results: ITS Impressions Venous Doppler Study 09/23/24 21:34 IMPRESSION: Negative bilateral lower extremity venous US. No deep vein thrombosis. Chest X-Ray 09/26/24 06:29 IMPRESSION: No active pulmonary disease Labs Labs: Laboratory Results - last 24 hr 09/25/24 09/25/24 09/26/24 16:44 19:23 05:40 WBC RBC Hgb Hct MCV MCH MCHC RDW Plt Count MPV Immature Gran % (Auto) Neut % (Auto) Lymph % (Auto) [place] % (Auto) Eos % (Auto) Baso % (Auto) Lymph # (Auto) [place] # (Auto) Eos # (Auto) Baso # (Auto) Abs Immat Gran (auto) Absolute Neuts (auto) Absolute Nucleated RBC Nucleated RBC % Platelet Estimate Polychromasia Hypochromasia Anisocytosis Schistocytes Sodium Potassium Chloride Carbon Dioxide Anion Gap BUN Creatinine Estim Creat Clear Calc Estimated GFR Glucose POC Capillary Glucose 106 H 177 H Calcium Magnesium Total Bilirubin AST ALT Alkaline Phosphatase Total Protein Albumin Influenza A (RT-PCR) Positive A Influenza B (RT-PCR) Negative SARS-CoV-2 RNA (RT-PCR) Negative 09/26/24 09/26/24 09/26/24 07:40 08:12 11:26 WBC 10.5 H RBC 3.29 L Hgb 9.0 L Hct 30.6 L MCV 93.0 MCH 27.4 MCHC 29.4 L RDW 15.9 H Plt Count 380 H MPV 8.8 Immature Gran % (Auto) 5.6 H Neut % (Auto) 74.7 H Lymph % (Auto) 8.7 L [place] % (Auto) 8.2 Eos % (Auto) 2.1 Baso % (Auto) 0.7 Lymph # (Auto) 0.91 [place] # (Auto) 0.9 H Eos # (Auto) 0.2 Baso # (Auto) 0.1 Abs Immat Gran (auto) 0.59 H Absolute Neuts (auto) 7.8 H Absolute Nucleated RBC 0.000 Nucleated RBC % 0.0 Platelet Estimate Increased Polychromasia 1+ Hypochromasia 1+ Anisocytosis 1+ Schistocytes None seen Sodium 139 Potassium 4.0 Chloride 106 Carbon Dioxide 25 Anion Gap 8 BUN 7 L Creatinine 0.50 L Estim Creat Clear Calc 145 Estimated GFR > 60 Glucose 124 H POC Capillary Glucose 125 H 249 H Calcium 8.7 Magnesium 2.1 Total Bilirubin 1.1 AST 25 ALT 17 Alkaline Phosphatase 70 Total Protein 7.0 Albumin 3.3 L Influenza A (RT-PCR) Influenza B (RT-PCR) SARS-CoV-2 RNA (RT-PCR) Quality VTE Prophylaxis VTE prophylaxis: pharmacologic ordered
--- NOTE | 2024-09-26 12:17 | P.PNGS_ITS ---
Progress Note: A&P Assessment and Plan (1) Abscess of left leg: Code(s): L02.416 - Cutaneous abscess of left lower limb Status: Acute Assessment and Plan: cont abx and local wound care Subjective Subjective Date/Time Seen: 09/26/24 12:17 Interval history: no acute issues, + influenza A Review of Systems Review of Systems: All systems reviewed & are unremarkable except as noted in HPI and below Exam Const: General: cooperative, comfortable, no acute distress and ill appearing Resp: Auscultation: clear to auscultation bilaterally Cardio: Rate: regular rate Rhythm: regular rhythm GI: Inspection: normal to inspection GI Palp: No abdominal tenderness Extrem: Other: LLE - incisions open c some mild serous drainage Objective Data Vital Signs Vital Signs: Vital Signs - 24 hr 09/25/24 14:00 09/25/24 16:02 09/25/24 20:00 Temperature 36.8 C Pulse Rate 74 104 H 89 Respiratory Rate 22 H Blood Pressure 128/53 L Pulse Oximetry 98 Oxygen Delivery 09/25/24 20:47 09/25/24 21:08 09/26/24 00:00 Temperature 37.2 C Pulse Rate 110 H 109 H Respiratory Rate 22 H Blood Pressure 146/62 H Pulse Oximetry 97 97 Oxygen Delivery Room Air 09/26/24 04:00 09/26/24 05:22 09/26/24 08:00 Temperature 36.7 C Pulse Rate 81 106 H 106 H Respiratory Rate 22 H 22 H Blood Pressure 152/70 H Pulse Oximetry 98 98 Oxygen Delivery Room Air Intake/Output Intake/Output: Intake & Output 09/23/24 09/24/24 09/25/24 09/26/24 23:59 23:59 23:59 23:59 Intake Total 2660 3040 4111 1740 Balance 2660 3040 4111 1740 Meds/Results Medications: Active Medications Generic Name Dose Route Start Last Admin Trade Name Freq PRN Reason Stop Dose Admin Acetaminophen 500 mg 09/23/24 19:01 Acetaminophen 500 Mg Tablet PO Q6H PRN Pain Rated 1-3 Aspirin 81 mg 09/23/24 09:00 09/26/24 08:09 Aspirin 81 Mg Enteric Tablet PO 81 mg DAILY ISABELLE Administration Dextrose 12.5 gm 09/22/24 23:19 Dextrose 50% 25 Gm/50 Ml Syringe IV PUSH PRN PRN Hypoglycemia Protocol Empagliflozin 10 mg 09/23/24 09:00 09/26/24 08:09 Empagliflozin 10 Mg Tablet PO 10 mg DAILY [facility]ABELLE Administration Enoxaparin Sodium 40 mg 09/23/24 09:00 09/26/24 08:20 Enoxaparin 40 Mg/0.4 Ml Syringe SUB-Q 40 mg DAILY ISABELLE Administration Glucagon 1 mg 09/22/24 23:19 Glucagon For Inj 1 Mg Vial IM PRN PRN Hypoglycemia Protocol Glucose 15 gm 09/22/24 23:19 Glucose Oral Gel 15 Gm Of Glucse In 37.5 Gm Tube PO PRN PRN Hypoglycemia Protocol Dextrose 1,000 mls @ 100 mls/hr 09/22/24 23:19 Dextrose 5% 1,000 Ml IVPB PRN PRN Hypoglycemia Protocol Cefazolin Sodium 2 gm in 50 mls @ 100 mls/hr 09/23/24 14:00 09/26/24 06:03 Ancef 2 Gm/D5w 50 Ml IVPB Infused Q8HR [facility] Infusion Ibuprofen 800 mg in 200 mls @ 400 mls/hr 09/23/24 19:01 Caldolor 800 Mg/200 Ml IVPB Q6H PRN Breakthrough Pain Rated 1-3 or NPO Insulin Aspart 3 - 6 units 09/23/24 08:00 09/26/24 08:09 Insulin Aspart (*Bkc) 100 Units/Ml SUB-Q Not Given TIDWM [facility] Protocol Insulin Glargine 20 units 09/23/24 09:00 09/25/24 08:41 Insulin Glargine (*Bkc) 100 Units/Ml SUB-Q Not Given DAILY [facility] Lisinopril 10 mg 09/23/24 09:00 09/26/24 08:09 Lisinopril 10 Mg Tablet PO 10 mg DAILY [facility] Administration Morphine Sulfate 2 mg 09/23/24 19:01 Morphine Sulfate (*Crx) 2 Mg/Ml Inj IV PUSH Q2H PRN Breakthrough Pain Rated 4-6 or NPO Morphine Sulfate 4 mg 09/23/24 19:01 Morphine Sulfate (*Crx) 4 Mg/Ml Inj IV PUSH Q2H PRN Breakthrough Pain Rated 7-10 or NPO Ondansetron HCl 4 mg 09/22/24 16:38 Ondansetron Inj 4 Mg/2 Ml Vial IV PUSH Q4H PRN Nausea Oxycodone/Acetaminophen 1 tablet 09/23/24 19:01 09/24/24 16:25 Oxycodone/Acetaminophen (*Crx) 5-325 Mg Tablet PO 1 tablet Q4H PRN Administration Pain Rated 4-6 Oxycodone/Acetaminophen 1 tab 09/23/24 19:01 09/24/24 11:02 Oxycodone/Acetaminophen (*Crx) 10-325 Mg Tablet PO 1 tab Q6H PRN Administration Pain Rated 7-10 Polyethylene Glycol 17 gm 09/24/24 09:00 09/26/24 08:09 Polyethylene Glycol 3350 17 Gm Powd.Pack PO 17 gm QAM ISABELLE Administration Rosuvastatin Calcium 10 mg 09/23/24 09:00 09/26/24 08:09 Rosuvastatin 10 Mg Tablet PO 10 mg DAILY [facility]ABELLE Administration Senna/Docusate Sodium 2 tab 09/23/24 21:00 09/25/24 21:07 Senna/Docusate Sodium Tablet PO 2 tab HS ISABELLE Administration Radiology Results: ITS Impressions Venous Doppler Study 09/23/24 21:34 IMPRESSION: Negative bilateral lower extremity venous US. No deep vein thrombosis. Chest X-Ray 09/26/24 06:29 IMPRESSION: No active pulmonary disease Labs Labs: Laboratory Results - last 24 hr 09/25/24 09/25/24 09/26/24 16:44 19:23 05:40 WBC RBC Hgb Hct MCV MCH MCHC RDW Plt Count MPV Immature Gran % (Auto) Neut % (Auto) Lymph % (Auto) [place] % (Auto) Eos % (Auto) Baso % (Auto) Lymph # (Auto) [place] # (Auto) Eos # (Auto) Baso # (Auto) Abs Immat Gran (auto) Absolute Neuts (auto) Absolute Nucleated RBC Nucleated RBC % Platelet Estimate Polychromasia Hypochromasia Anisocytosis Schistocytes Sodium Potassium Chloride Carbon Dioxide Anion Gap BUN Creatinine Estim Creat Clear Calc Estimated GFR Glucose POC Capillary Glucose 106 H 177 H Calcium Magnesium Total Bilirubin AST ALT Alkaline Phosphatase Total Protein Albumin Influenza A (RT-PCR) Positive A Influenza B (RT-PCR) Negative SARS-CoV-2 RNA (RT-PCR) Negative 09/26/24 09/26/24 09/26/24 07:40 08:12 11:26 WBC 10.5 H RBC 3.29 L Hgb 9.0 L Hct 30.6 L MCV 93.0 MCH 27.4 MCHC 29.4 L RDW 15.9 H Plt Count 380 H MPV 8.8 Immature Gran % (Auto) 5.6 H Neut % (Auto) 74.7 H Lymph % (Auto) 8.7 L [place] % (Auto) 8.2 Eos % (Auto) 2.1 Baso % (Auto) 0.7 Lymph # (Auto) 0.91 [place] # (Auto) 0.9 H Eos # (Auto) 0.2 Baso # (Auto) 0.1 Abs Immat Gran (auto) 0.59 H Absolute Neuts (auto) 7.8 H Absolute Nucleated RBC 0.000 Nucleated RBC % 0.0 Platelet Estimate Increased Polychromasia 1+ Hypochromasia 1+ Anisocytosis 1+ Schistocytes None seen Sodium 139 Potassium 4.0 Chloride 106 Carbon Dioxide 25 Anion Gap 8 BUN 7 L Creatinine 0.50 L Estim Creat Clear Calc 145 Estimated GFR > 60 Glucose 124 H POC Capillary Glucose 125 H 249 H Calcium 8.7 Magnesium 2.1 Total Bilirubin 1.1 AST 25 ALT 17 Alkaline Phosphatase 70 Total Protein 7.0 Albumin 3.3 L Influenza A (RT-PCR) Influenza B (RT-PCR) SARS-CoV-2 RNA (RT-PCR)
[2024-09-26] MEDS: INSULIN ASPART (*BKC) 100 UNITS/ML SUB-Q (12:45)
[2024-09-26 16:41] LABS: Glucose Point of Care 134 mg/dl (65-105)
[2024-09-26] MEDS: SENNA/DOCUSATE SODIUM TABLET 2 TAB PO (21:13)
[2024-09-27] VITALS (9 sets, daily range): BP systolic 132–144; BP diastolic 46–50; PULSE 67–97; RESP 16–20; TEMP 36.3–36.6; O2SAT 92–99
[2024-09-27 00:44] LABS: Glucose Point of Care 134 mg/dl (65-105)
[2024-09-27] MEDS: ceFAZolin 2 GM/D5W 50 ML 2 GM/50 ML BAG IVPB ×3 (05:07→20:22)
[2024-09-27 08:20] LABS: Glucose Point of Care 135 mg/dl (65-105)
[2024-09-27] MEDS: EMPAGLIFLOZIN 10 MG TABLET PO (08:59)
[2024-09-27] MEDS: ASPIRIN 81 MG ENTERIC TABLET PO (08:59)
[2024-09-27] MEDS: lisinopriL 10 MG TABLET PO (09:00)
[2024-09-27] MEDS: ROSUVASTATIN 10 MG TABLET PO (09:00)
[2024-09-27] MEDS: ENOXAPARIN 40 MG/0.4 ML SYRINGE SUB-Q (09:00)
[2024-09-27] MEDS: oxyCODONE/ACETAMINOPHEN (*CRX) 10-325 MG TABLET 1 TAB PO ×2 (09:06→18:07)
[2024-09-27 09:52] LABS: Hematocrit 28.3 % (42.0-52.0); Hemoglobin 8.5 g/dL (14.0-18.0); Mean Corpuscular Hemoglobin 27.6 pg (26-34); Mean Corpuscular Volume 91.9 fl (80-100); Mean Platelet Volume 8.5 fl (7.4-10.4); Platelet Count Result 339 k/mm3 (150-375); Red Blood Count 3.08 M/mm3 (4.6-6.20); Red Cell Distribution Width 16.4 % (11.5-14.5); White Blood Count 7.4 K/mm3 (4.5-10.0)
[2024-09-27 10:04] LABS: Alanine Aminotransferase 19 U/L (6-50); Albumin Level 3.2 g/dL (3.5-5.1); Alkaline Phosphatase 64 U/L (38-126); Anion Gap 5 mmol/L (4-12); Aspartate Amino Transferase 25 U/L (17-59); Blood Urea Nitrogen 11 mg/dL (9-20); Calcium 8.3 mg/dL (8.4-10.2); Carbon Dioxide 26 mmol/L (22-30); Chloride 104 mmol/L (98-107); Estimated CRCL calculation 145 ml/min; Estimated Glomerular Filt Rate > 60; Glucose 170 mg/dL (65-110); Magnesium 2.2 mg/dL (1.6-2.3); Potassium 3.8 mmol/L (3.4-5.0); Sodium 135 mmol/L (137-145)
[2024-09-27 10:35] LABS: Band Neutrophils Percent 12 % (0-6); Basophils Absolute Manual 0.07 K/mm3 (0.0-0.1); Basophils Percent Manual 1 % (0-1); Lymphocytes Absolute Manual 0.74 K/mm3 (1.1-4.5); Lymphocytes Percent Manual 10 % (18-44); Metamyelocytes Percent 1 %; Monocytes Absolute Manual 0.66 K/mm3 (0.1-0.90); Monocytes Percent Manual 9 % (3-9); Neutrophils Absolute Manual 5.84 K/mm3 (1.3-6.7); Neutrophils Percent Manual 67 % (46-73); Platelet Estimate Adequate (Adequate); Total Cells Counted 100
[2024-09-27 10:36] LABS: Anisocytosis 1+; Hypochromasia 1+; Ovalocytes 1+
[2024-09-27 10:37] LABS: Schistocytes None Seen
[2024-09-27 11:25] LABS: Glucose Point of Care 138 mg/dl (65-105)
--- NOTE | 2024-09-27 11:33 | PM.PNGS ---
Progress Note: A&P Assessment and Plan (1) Abscess of left leg: Code(s): L02.416 - Cutaneous abscess of left lower limb Status: Acute Assessment and Plan: Culture showing Streptococcus. No new areas of purulent fluid requiring incision and drainage or possibly debridement appreciated. Patient is seen with Wound Care nurse specialists. They will clean epithelium off the left lower leg and try to get some of the exudate off the wound. Will try to use wound VAC although may be difficult to keep uniform suction. (2) Cellulitis of left leg: Code(s): L03.116 - Cellulitis of left lower limb Status: Acute Assessment and Plan: Improving (3) Venous stasis dermatitis of both lower extremities: Code(s): I87.2 - Venous insufficiency (chronic) (peripheral) Status: Chronic Assessment and Plan: No change. Subjective Subjective Date/Time Seen: 09/27/24 11:33 Post Op day: 3 Patient reports: no new complaints and afebrile Exam Const: General: alert and awake Extrem: Left lower extremity: lower leg (No new purulent areas noted. Thin wound exudate noted. Better.) Details: tenderness, non-pitting edema and other (Much loose, flaking dry epithelial skin. Healthy skin beneath. Removed 2 small areas of skin flaps.); no ecchymosis and no crepitus Objective Data Vital Signs Vital Signs: Vital Signs - 24 hr 09/26/24 12:00 09/26/24 14:00 09/26/24 16:00 Temperature 37.6 C H Pulse Rate 94 106 H 89 Respiratory Rate 24 H Blood Pressure 148/67 H Pulse Oximetry 98 Oxygen Delivery 09/26/24 20:00 09/26/24 21:14 09/26/24 22:00 Temperature 36.2 C L Pulse Rate 96 89 Respiratory Rate 18 Blood Pressure 155/58 H Pulse Oximetry 98 96 Oxygen Delivery Room Air 09/27/24 00:00 09/27/24 04:00 09/27/24 06:00 Temperature 36.6 C Pulse Rate 91 67 88 Respiratory Rate 20 Blood Pressure 136/50 L Pulse Oximetry 99 Oxygen Delivery 09/27/24 08:00 Temperature Pulse Rate 88 Respiratory Rate 20 Blood Pressure Pulse Oximetry 99 Oxygen Delivery Room Air Intake/Output Intake/Output: Intake & Output 09/24/24 09/25/24 09/26/2425 23:59 23:59 23:59 23:59 Intake Total 3040 4111 3320 890 Balance 3040 4111 3320 890 Meds/Results Medications: Active Medications Generic Name Dose Route Start Last Admin Trade Name Freq PRN Reason Stop Dose Admin Acetaminophen 500 mg 09/23/24 19:01 Acetaminophen 500 Mg Tablet PO Q6H PRN Pain Rated 1-3 Aspirin 81 mg 09/23/24 09:00 09/27/24 08:59 Aspirin 81 Mg Enteric Tablet PO 81 mg DAILY ISABELLE Administration Dextrose 12.5 gm 09/22/24 23:19 Dextrose 50% 25 Gm/50 Ml Syringe IV PUSH PRN PRN Hypoglycemia Protocol Empagliflozin 10 mg 09/23/24 09:00 09/27/24 08:59 Empagliflozin 10 Mg Tablet PO 10 mg DAILY ISABELLE Administration Enoxaparin Sodium 40 mg 09/23/24 09:00 09/27/24 09:00 Enoxaparin 40 Mg/0.4 Ml Syringe SUB-Q 40 mg DAILY ISABELLE Administration Glucagon 1 mg 09/22/24 23:19 Glucagon For Inj 1 Mg Vial IM PRN PRN Hypoglycemia Protocol Glucose 15 gm 09/22/24 23:19 Glucose Oral Gel 15 Gm Of Glucse In 37.5 Gm Tube PO PRN PRN Hypoglycemia Protocol Dextrose 1,000 mls @ 100 mls/hr 09/22/24 23:19 Dextrose 5% 1,000 Ml IVPB PRN PRN Hypoglycemia Protocol Cefazolin Sodium 2 gm in 50 mls @ 100 mls/hr 09/23/24 14:00 09/27/24 05:37 Ancef 2 Gm/D5w 50 Ml IVPB Infused Q8HR [facility] Infusion Ibuprofen 800 mg in 200 mls @ 400 mls/hr 09/23/24 19:01 Caldolor 800 Mg/200 Ml IVPB Q6H PRN Breakthrough Pain Rated 1-3 or NPO Insulin Aspart 3 - 6 units 09/23/24 08:00 09/27/24 08:56 Insulin Aspart (*Bkc) 100 Units/Ml SUB-Q Not Given TIDWM [facility] Protocol Insulin Glargine 20 units 09/23/24 09:00 09/27/24 08:56 Insulin Glargine (*Bkc) 100 Units/Ml SUB-Q Not Given DAILY [facility] Lisinopril 10 mg 09/23/24 09:00 09/27/24 09:00 Lisinopril 10 Mg Tablet PO 10 mg DAILY ISABELLE Administration Morphine Sulfate 2 mg 09/23/24 19:01 Morphine Sulfate (*Crx) 2 Mg/Ml Inj IV PUSH Q2H PRN Breakthrough Pain Rated 4-6 or NPO Morphine Sulfate 4 mg 09/23/24 19:01 Morphine Sulfate (*Crx) 4 Mg/Ml Inj IV PUSH Q2H PRN Breakthrough Pain Rated 7-10 or NPO Ondansetron HCl 4 mg 09/22/24 16:38 Ondansetron Inj 4 Mg/2 Ml Vial IV PUSH Q4H PRN Nausea Oxycodone/Acetaminophen 1 tablet 09/23/24 19:01 09/24/24 16:25 Oxycodone/Acetaminophen (*Crx) 5-325 Mg Tablet PO 1 tablet Q4H PRN Administration Pain Rated 4-6 Oxycodone/Acetaminophen 1 tab 09/23/24 19:01 09/27/24 09:06 Oxycodone/Acetaminophen (*Crx) 10-325 Mg Tablet PO 1 tab Q6H PRN Administration Pain Rated 7-10 Polyethylene Glycol 17 gm 09/24/24 09:00 09/27/24 09:00 Polyethylene Glycol 3350 17 Gm Powd.Pack PO Not Given QAM [facility] Rosuvastatin Calcium 10 mg 09/23/24 09:00 09/27/24 09:00 Rosuvastatin 10 Mg Tablet PO 10 mg DAILY ISABELLE Administration Senna/Docusate Sodium 2 tab 09/23/24 21:00 09/26/24 21:13 Senna/Docusate Sodium Tablet PO 2 tab HS ISABELLE Administration Radiology Results: ITS Impressions Venous Doppler Study 09/23/24 21:34 IMPRESSION: Negative bilateral lower extremity venous US. No deep vein thrombosis. Chest X-Ray 09/26/24 06:29 IMPRESSION: No active pulmonary disease Labs Labs: Laboratory Results - last 24 hr 09/26/24 09/26/24 09/26/24 11:26 16:33 22:31 WBC RBC Hgb Hct MCV MCH MCHC RDW Plt Count MPV Immature Gran % (Auto) Neut % (Auto) Lymph % (Auto) [place] % (Auto) Eos % (Auto) Baso % (Auto) Lymph # (Auto) [place] # (Auto) Eos # (Auto) Baso # (Auto) Abs Immat Gran (auto) Absolute Neuts (auto) Absolute Nucleated RBC Total Counted Neutrophils % (Manual) Band Neutrophils % Lymphocytes % (Manual) Monocytes % (Manual) Basophils % (Manual) Metamyelocytes % Nucleated RBC % Abs Neuts (Manual) Abs Lymphs (Manual) Abs Monocytes (Manual) Abs Basophils (Manual) Platelet Estimate Hypochromasia Anisocytosis Ovalocytes Schistocytes Sodium Potassium Chloride Carbon Dioxide Anion Gap BUN Creatinine Estim Creat Clear Calc Estimated GFR Glucose POC Capillary Glucose 249 H 134 H 134 H Calcium Magnesium Total Bilirubin AST ALT Alkaline Phosphatase Total Protein Albumin 09/27/24 09/27/24 09/27/24 08:11 09:46 11:18 WBC 7.4 RBC 3.08 L Hgb 8.5 L Hct 28.3 L MCV 91.9 MCH 27.6 MCHC 30.0 L RDW 16.4 H Plt Count 339 MPV 8.5 Immature Gran % (Auto) Not Reportable Neut % (Auto) Not Reportable Lymph % (Auto) Not Reportable [place] % (Auto) Not Reportable Eos % (Auto) Not Reportable Baso % (Auto) Not Reportable Lymph # (Auto) Not Reportable [place] # (Auto) Not Reportable Eos # (Auto) Not Reportable Baso # (Auto) Not Reportable Abs Immat Gran (auto) Not Reportable Absolute Neuts (auto) Not Reportable Absolute Nucleated RBC Not Reportable Total Counted 100 Neutrophils % (Manual) 67 Band Neutrophils % 12 H Lymphocytes % (Manual) 10 L Monocytes % (Manual) 9 Basophils % (Manual) 1 Metamyelocytes % 1 Nucleated RBC % Not Reportable Abs Neuts (Manual) 5.84 Abs Lymphs (Manual) 0.74 L Abs Monocytes (Manual) 0.66 Abs Basophils (Manual) 0.07 Platelet Estimate Adequate Hypochromasia 1+ Anisocytosis 1+ Ovalocytes 1+ Schistocytes None seen Sodium 135 L Potassium 3.8 Chloride 104 Carbon Dioxide 26 Anion Gap 5 BUN 11 Creatinine 0.50 L Estim Creat Clear Calc 145 Estimated GFR > 60 Glucose 170 H POC Capillary Glucose 135 H 138 H Calcium 8.3 L Magnesium 2.2 Total Bilirubin 1.0 AST 25 ALT 19 Alkaline Phosphatase 64 Total Protein 7.0 Albumin 3.2 L
[2024-09-27] MEDS: MORPHINE SULFATE (*CRX) 4 MG/ML INJ IV PUSH ×2 (13:40→22:28)
[2024-09-27] MEDS: SILVER NITRATE (*SP) STICK 1 EACH TOPICAL (13:48)
--- NOTE | 2024-09-27 14:45 | P.PNIM_ITS ---
Progress Note: A&P Assessment and Plan (1) Cellulitis of left leg: Code(s): L03.116 - Cellulitis of left lower limb Status: Acute Assessment and Plan: -chronic wounds bilateral lower extremities due to PVD and lymphedema, worse on left -Significantly more swollen and red than right leg -Pus drainage from kearney wound cultured in ER will order doppler to r/u DVT- negative surgery consult- I/D multiple abscess 09/24 wound culture- group B strep on IV antibiotics dressing is c/d/i 09/27 culture showing Streptococcus. Patient is seen with Wound Care nurse. wound VAC in place. (2) Diabetes type 2: Code(s): E11.9 - Type 2 diabetes mellitus without complications Status: Acute Assessment and Plan: -HGB A1c 8.3 -ACHS Fingerstick glucose -Resume home Lantus 20 units and SSI hypoglycemia protocol held lantus for the last couple of mornings will add protein supplement 09/27 BS reviewed- stable (3) Hypertension: Code(s): I10 - Essential (primary) hypertension Status: Acute Assessment and Plan: -Blood pressure reviewed and stable -Continue home medications (4) Hyperlipidemia: Code(s): E78.5 - Hyperlipidemia, unspecified Status: Acute Assessment and Plan: -Continue Crestor (5) Iron deficiency anemia: Code(s): D50.9 - Iron deficiency anemia, unspecified Status: Acute Assessment and Plan: -Chronic anemia noted on labs -Ordered anemia labs B12/Folate, iron/TIBC and ferritin -Iron count and %saturation quite low- will order replacement iV Plan anticipate discharge in the next few days- will swith to PO antibiotics and possibly will need a home wound vac Time Spent With Patient Time with patient: 25 - 35 minutes Subjective Date/time seen: 09/27/24 14:45 Interval history: his is a 74-year-old male patient with a history hypertension hyperlipidemia diabetes is admitted for left lower extremity cellulitis/possible abscess. Patient as peripheral vascular disease has been getting wounds and blisters his lower extremities. The leg has more red more swollen than usual. He had previously been oral doxycycline for months that has not helped. Patient reported initially he was a little short of breath on arrival to the emergency department they placed him oxygen temporarily and discontinued it and he has been short of breath since. Patient does not take a water pill. Echocardiogram in May 2024 showed Grade 1 diastolic dysfunction. I/D with Dr Gandhi yesterday 09/23. cultures were obtained. To OR for i/d again today under a local anesthesia. Pt is seen and examined. vs reviewed. HR better. he is feeling better overall, appetite improved. 09/26- resting in recliner with eyes closed. no acute events overnight. IV antibitoics. no n/v/d. pain is controlled. 09/27- c/o some pain. Woundvac in place. [facility] care coordination for home woundvac set up. Review of Systems Review of Systems: All systems reviewed & are unremarkable except as noted in HPI and below Cardiovascular: Cardiovascular: Denies chest pain Respiratory: Respiratory: Denies chest congestion Gastrointestinal: Gastrointestinal: Denies abdominal pain Exam Narrative: GENERAL: Well-appearing, well-nourished, and in no acute distress. HEAD: Normocephalic, atraumatic. ENT: Mucous membranes moist. NECK: Supple. CHEST: Clear to auscultation. No respiratory distress. HEART: Regular rate and rhythm. Normal peripheral pulses. ABDOMEN: Soft, nontender, nondistended. EXTREMITIES: Normal range of motion. Chronic venous stasis changes of bilateral lower extremities. SKIN: Warm, dry. Chronic ulcer shins of the lateral aspects lower legs near the ankle. Purulent drainage from anterior kearney wounds on left lower extremity. Significant erythema swelling to the left leg compared to the right. NEURO: Alert and oriented x3. PSYCH: Normal mood and affect. Objective Data Vital Signs Vital Signs: Vital Signs - 24 hr 09/26/24 16:00 09/26/24 20:00 09/26/24 21:14 Temperature Pulse Rate 89 96 Respiratory Rate Blood Pressure Pulse Oximetry 98 Oxygen Delivery Room Air 09/26/24 22:00 09/27/24 00:00 09/27/24 04:00 Temperature 97.1 F L Pulse Rate 89 91 67 Respiratory Rate 18 Blood Pressure 155/58 H Pulse Oximetry 96 Oxygen Delivery 09/27/24 06:00 09/27/24 08:00 Temperature 97.9 F Pulse Rate 88 88 Respiratory Rate 20 20 Blood Pressure 136/50 L Pulse Oximetry 99 99 Oxygen Delivery Room Air Intake/Output Intake/Output: Intake & Output 09/24/24 09/25/24 09/26/24 09/27/24 23:59 23:59 23:59 23:59 Intake Total 3040 4111 3320 890 Balance 3040 4111 3320 890 Meds/Results Medications: Active Medications Generic Name Dose Route Start Last Admin Trade Name Freq PRN Reason Stop Dose Admin Acetaminophen 500 mg 09/23/24 19:01 Acetaminophen 500 Mg Tablet PO Q6H PRN Pain Rated 1-3 Aspirin 81 mg 09/23/24 09:00 09/27/24 08:59 Aspirin 81 Mg Enteric Tablet PO 81 mg DAILY ISABELLE Administration Dextrose 12.5 gm 09/22/24 23:19 Dextrose 50% 25 Gm/50 Ml Syringe IV PUSH PRN PRN Hypoglycemia Protocol Empagliflozin 10 mg 09/23/24 09:00 09/27/24 08:59 Empagliflozin 10 Mg Tablet PO 10 mg DAILY ISABELLE Administration Enoxaparin Sodium 40 mg 09/23/24 09:00 09/27/24 09:00 Enoxaparin 40 Mg/0.4 Ml Syringe SUB-Q 40 mg DAILY ISABELLE Administration Glucagon 1 mg 09/22/24 23:19 Glucagon For Inj 1 Mg Vial IM PRN PRN Hypoglycemia Protocol Glucose 15 gm 09/22/24 23:19 Glucose Oral Gel 15 Gm Of Glucse In 37.5 Gm Tube PO PRN PRN Hypoglycemia Protocol Dextrose 1,000 mls @ 100 mls/hr 09/22/24 23:19 Dextrose 5% 1,000 Ml IVPB PRN PRN Hypoglycemia Protocol Cefazolin Sodium 2 gm in 50 mls @ 100 mls/hr 09/23/24 14:00 09/27/24 13:40 Ancef 2 Gm/D5w 50 Ml IVPB 100 mls/hr Q8HR ISABELLE Administration Ibuprofen 800 mg in 200 mls @ 400 mls/hr 09/23/24 19:01 Caldolor 800 Mg/200 Ml IVPB Q6H PRN Breakthrough Pain Rated 1-3 or NPO Insulin Aspart 3 - 6 units 09/23/24 08:00 09/27/24 13:35 Insulin Aspart (*Bkc) 100 Units/Ml SUB-Q Not Given TIDWM [facility] Protocol Insulin Glargine 20 units 09/23/24 09:00 09/27/24 08:56 Insulin Glargine (*Bkc) 100 Units/Ml SUB-Q Not Given DAILY [facility] Lisinopril 10 mg 09/23/24 09:00 09/27/24 09:00 Lisinopril 10 Mg Tablet PO 10 mg DAILY ISABELLE Administration Morphine Sulfate 2 mg 09/23/24 19:01 Morphine Sulfate (*Crx) 2 Mg/Ml Inj IV PUSH Q2H PRN Breakthrough Pain Rated 4-6 or NPO Morphine Sulfate 4 mg 09/23/24 19:01 09/27/24 13:40 Morphine Sulfate (*Crx) 4 Mg/Ml Inj IV PUSH 4 mg Q2H PRN Administration Breakthrough Pain Rated 7-10 or NPO Ondansetron HCl 4 mg 09/22/24 16:38 Ondansetron Inj 4 Mg/2 Ml Vial IV PUSH Q4H PRN Nausea Oxycodone/Acetaminophen 1 tablet 09/23/24 19:01 09/24/24 16:25 Oxycodone/Acetaminophen (*Crx) 5-325 Mg Tablet PO 1 tablet Q4H PRN Administration Pain Rated 4-6 Oxycodone/Acetaminophen 1 tab 09/23/24 19:01 09/27/24 09:06 Oxycodone/Acetaminophen (*Crx) 10-325 Mg Tablet PO 1 tab Q6H PRN Administration Pain Rated 7-10 Polyethylene Glycol 17 gm 09/24/24 09:00 09/27/24 09:00 Polyethylene Glycol 3350 17 Gm Powd.Pack PO Not Given QAM [facility] Rosuvastatin Calcium 10 mg 09/23/24 09:00 09/27/24 09:00 Rosuvastatin 10 Mg Tablet PO 10 mg DAILY ISABELLE Administration Senna/Docusate Sodium 2 tab 09/23/24 21:00 09/26/24 21:13 Senna/Docusate Sodium Tablet PO 2 tab HS ISABELLE Administration Radiology Results: ITS Impressions Venous Doppler Study 09/23/24 21:34 IMPRESSION: Negative bilateral lower extremity venous US. No deep vein thrombosis. Chest X-Ray 09/26/24 06:29 IMPRESSION: No active pulmonary disease Labs Labs: Laboratory Results - last 24 hr 09/26/24 09/26/24 09/27/24 16:33 22:31 08:11 WBC RBC Hgb Hct MCV MCH MCHC RDW Plt Count MPV Immature Gran % (Auto) Neut % (Auto) Lymph % (Auto) [place] % (Auto) Eos % (Auto) Baso % (Auto) Lymph # (Auto) [place] # (Auto) Eos # (Auto) Baso # (Auto) Abs Immat Gran (auto) Absolute Neuts (auto) Absolute Nucleated RBC Total Counted Neutrophils % (Manual) Band Neutrophils % Lymphocytes % (Manual) Monocytes % (Manual) Basophils % (Manual) Metamyelocytes % Nucleated RBC % Abs Neuts (Manual) Abs Lymphs (Manual) Abs Monocytes (Manual) Abs Basophils (Manual) Platelet Estimate Hypochromasia Anisocytosis Ovalocytes Schistocytes Sodium Potassium Chloride Carbon Dioxide Anion Gap BUN Creatinine Estim Creat Clear Calc Estimated GFR Glucose POC Capillary Glucose 134 H 134 H 135 H Calcium Magnesium Total Bilirubin AST ALT Alkaline Phosphatase Total Protein Albumin 09/27/24 09/27/24 09:46 11:18 WBC 7.4 RBC 3.08 L Hgb 8.5 L Hct 28.3 L MCV 91.9 MCH 27.6 MCHC 30.0 L RDW 16.4 H Plt Count 339 MPV 8.5 Immature Gran % (Auto) Not Reportable Neut % (Auto) Not Reportable Lymph % (Auto) Not Reportable [place] % (Auto) Not Reportable Eos % (Auto) Not Reportable Baso % (Auto) Not Reportable Lymph # (Auto) Not Reportable [place] # (Auto) Not Reportable Eos # (Auto) Not Reportable Baso # (Auto) Not Reportable Abs Immat Gran (auto) Not Reportable Absolute Neuts (auto) Not Reportable Absolute Nucleated RBC Not Reportable Total Counted 100 Neutrophils % (Manual) 67 Band Neutrophils % 12 H Lymphocytes % (Manual) 10 L Monocytes % (Manual) 9 Basophils % (Manual) 1 Metamyelocytes % 1 Nucleated RBC % Not Reportable Abs Neuts (Manual) 5.84 Abs Lymphs (Manual) 0.74 L Abs Monocytes (Manual) 0.66 Abs Basophils (Manual) 0.07 Platelet Estimate Adequate Hypochromasia 1+ Anisocytosis 1+ Ovalocytes 1+ Schistocytes None seen Sodium 135 L Potassium 3.8 Chloride 104 Carbon Dioxide 26 Anion Gap 5 BUN 11 Creatinine 0.50 L Estim Creat Clear Calc 145 Estimated GFR > 60 Glucose 170 H POC Capillary Glucose 138 H Calcium 8.3 L Magnesium 2.2 Total Bilirubin 1.0 AST 25 ALT 19 Alkaline Phosphatase 64 Total Protein 7.0 Albumin 3.2 L Quality VTE Prophylaxis VTE prophylaxis: pharmacologic ordered
[2024-09-27 16:34] LABS: Glucose Point of Care 123 mg/dl (65-105)
[2024-09-27 20:20] LABS: Glucose Point of Care 165 mg/dl (65-105)
[2024-09-27] MEDS: SENNA/DOCUSATE SODIUM TABLET 2 TAB PO (20:21)
[2024-09-28] VITALS (8 sets, daily range): BP systolic 128–143; BP diastolic 50–65; PULSE 82–134; RESP 16–20; TEMP 36.1–36.6; O2SAT 96–98
[2024-09-28] MEDS: oxyCODONE/ACETAMINOPHEN (*CRX) 10-325 MG TABLET 1 TAB PO ×4 (04:23→23:22)
[2024-09-28] MEDS: ceFAZolin 2 GM/D5W 50 ML 2 GM/50 ML BAG IVPB ×2 (05:43→14:12)
[2024-09-28 06:50] LABS: Basophils Absolute Auto 0.1 K/mm3 (0.0-0.1); Basophils Percent Auto 0.8 % (0.2-1.2); Eosinophils Absolute Auto 0.1 K/mm3 (0-0.3); Hematocrit 29.1 % (42.0-52.0); Hemoglobin 8.5 g/dL (14.0-18.0); Immature Granulocyte Absolute 0.34 K/mm3 (0.00-0.031); Immature Granulocyte Percent A 5.2 % (0-0.5); Lymphocytes Absolute Auto 0.82 K/mm3 (0.9-3.2); Lymphocytes Percent Auto 12.5 % (18.3-44.2); Mean Corpuscular HGB Conc 29.2 g/dl (32-36); Mean Corpuscular Hemoglobin 27.1 pg (26-34); Mean Corpuscular Volume 92.7 fl (80-100); Mean Platelet Volume 8.6 fl (7.4-10.4); Neutrophils Absolute Auto 4.2 K/mm3 (1.3-6.7); Neutrophils Percent Auto 64.5 % (45.5-73.1); Platelet Count Result 343 k/mm3 (150-375); Red Blood Count 3.14 M/mm3 (4.6-6.20); Red Cell Distribution Width 16.2 % (11.5-14.5); White Blood Count 6.5 K/mm3 (4.5-10.0)
[2024-09-28 07:08] LABS: Alanine Aminotransferase 20 U/L (6-50); Albumin Level 3.1 g/dL (3.5-5.1); Alkaline Phosphatase 65 U/L (38-126); Anion Gap 6 mmol/L (4-12); Aspartate Amino Transferase 24 U/L (17-59); Bilirubin,Total 0.8 mg/dL (0.2-1.3); Blood Urea Nitrogen 12 mg/dL (9-20); Calcium 7.8 mg/dL (8.4-10.2); Carbon Dioxide 30 mmol/L (22-30); Chloride 101 mmol/L (98-107); Estimated CRCL calculation 150 ml/min; Estimated Glomerular Filt Rate > 60; Glucose 132 mg/dL (65-110); Magnesium 2.2 mg/dL (1.6-2.3); Potassium 3.7 mmol/L (3.4-5.0); Sodium 137 mmol/L (137-145)
[2024-09-28 07:59] LABS: Anisocytosis 1+; Ovalocytes 1+; Platelet Estimate Adequate (Adequate); Schistocytes None Seen
[2024-09-28 08:21] LABS: Glucose Point of Care 129 mg/dl (65-105)
[2024-09-28] MEDS: INSULIN GLARGINE (*BKC) 100 UNITS/ML 20 UNITS SUB-Q (09:22)
[2024-09-28] MEDS: ASPIRIN 81 MG ENTERIC TABLET PO (09:23)
[2024-09-28] MEDS: ROSUVASTATIN 10 MG TABLET PO (09:23)
[2024-09-28] MEDS: lisinopriL 10 MG TABLET PO (09:23)
[2024-09-28] MEDS: polyethylene glycoL 3350 17 GM POWD.PACK PO (09:23)
[2024-09-28] MEDS: EMPAGLIFLOZIN 10 MG TABLET PO (09:23)
--- NOTE | 2024-09-28 11:43 | PM.PNGS ---
Progress Note: A&P Assessment and Plan (1) Abscess of left leg: Code(s): L02.416 - Cutaneous abscess of left lower limb Status: Acute Assessment and Plan: Residual wound from abscess drainage being cared for with wound VAC negative pressure suction device. Appears to be working well. He plans to go home with the wound VAC in place. Right now, he is having enough pain from the suction that he is requiring oral narcotic analgesics. This should improve as the wounds heal. Will either change wound VAC tomorrow or . Probably home with home health for wound VAC and follow-up in wound clinic in about 2 weeks. Abscesses did grow Streptococcus. Currently on antibiotics 5 days following initial incision and drainage procedure. (2) Cellulitis of left leg: Code(s): L03.116 - Cellulitis of left lower limb Status: Acute Assessment and Plan: Improving (3) Venous stasis dermatitis of both lower extremities: Code(s): I87.2 - Venous insufficiency (chronic) (peripheral) Status: Chronic Assessment and Plan: No change. Subjective Subjective Date/Time Seen: 09/28/24 11:43 Patient reports: still having pain ( Left leg more painful now that wound VAC is in place.) and afebrile Exam Const: General: cooperative, comfortable, awake and well nourished Extrem: Left lower extremity: lower leg ( Wound VAC in place. Suction being held.) Details: tenderness Objective Data Vital Signs Vital Signs: Vital Signs - 24 hr 09/27/24 12:00 09/27/24 14:00 09/27/24 16:00 Temperature 36.5 C Pulse Rate 82 97 82 Respiratory Rate 18 Blood Pressure 144/47 H Pulse Oximetry 92 Oxygen Delivery 09/27/24 20:00 09/27/24 20:00 09/27/24 22:00 Temperature 36.3 C L Pulse Rate 73 73 73 Respiratory Rate 16 16 Blood Pressure 132/46 L Pulse Oximetry 95 95 Oxygen Delivery Room Air 09/28/24 00:00 09/28/24 04:00 Temperature Pulse Rate 97 86 Respiratory Rate Blood Pressure Pulse Oximetry Oxygen Delivery Intake/Output Intake/Output: Intake & Output 09/25/24 09/26/24 09/27/24 09/28/24 23:59 23:59 23:59 23:59 Intake Total 4111 3320 1470 50 Balance 4111 3320 1470 50 Meds/Results Medications: Active Medications Generic Name Dose Route Start Last Admin Trade Name Freq PRN Reason Stop Dose Admin Acetaminophen 500 mg 09/23/24 19:01 Acetaminophen 500 Mg Tablet PO Q6H PRN Pain Rated 1-3 Aspirin 81 mg 09/23/24 09:00 09/28/24 09:23 Aspirin 81 Mg Enteric Tablet PO 81 mg DAILY ISABELLE Administration Dextrose 12.5 gm 09/22/24 23:19 Dextrose 50% 25 Gm/50 Ml Syringe IV PUSH PRN PRN Hypoglycemia Protocol Empagliflozin 10 mg 09/23/24 09:00 09/28/24 09:23 Empagliflozin 10 Mg Tablet PO 10 mg DAILY ISABELLE Administration Enoxaparin Sodium 40 mg 09/23/24 09:00 09/27/24 09:00 Enoxaparin 40 Mg/0.4 Ml Syringe SUB-Q 40 mg DAILY ISABELLE Administration Glucagon 1 mg 09/22/24 23:19 Glucagon For Inj 1 Mg Vial IM PRN PRN Hypoglycemia Protocol Glucose 15 gm 09/22/24 23:19 Glucose Oral Gel 15 Gm Of Glucse In 37.5 Gm Tube PO PRN PRN Hypoglycemia Protocol Dextrose 1,000 mls @ 100 mls/hr 09/22/24 23:19 Dextrose 5% 1,000 Ml IVPB PRN PRN Hypoglycemia Protocol Cefazolin Sodium 2 gm in 50 mls @ 100 mls/hr 09/23/24 14:00 09/28/24 07:00 Ancef 2 Gm/D5w 50 Ml IVPB Infused Q8HR ISABELLE Infusion Ibuprofen 800 mg in 200 mls @ 400 mls/hr 09/23/24 19:01 Caldolor 800 Mg/200 Ml IVPB Q6H PRN Breakthrough Pain Rated 1-3 or NPO Insulin Aspart 3 - 6 units 09/23/24 08:00 09/28/24 09:00 Insulin Aspart (*Bkc) 100 Units/Ml SUB-Q Not Given TIDWM [facility] Protocol Insulin Glargine 20 units 09/23/24 09:00 09/28/24 09:22 Insulin Glargine (*Bkc) 100 Units/Ml SUB-Q 20 units DAILY ISABELLE Administration Lisinopril 10 mg 09/23/24 09:00 09/28/24 09:23 Lisinopril 10 Mg Tablet PO 10 mg DAILY ISABELLE Administration Morphine Sulfate 2 mg 09/23/24 19:01 Morphine Sulfate (*Crx) 2 Mg/Ml Inj IV PUSH Q2H PRN Breakthrough Pain Rated 4-6 or NPO Morphine Sulfate 4 mg 09/23/24 19:01 09/27/24 22:28 Morphine Sulfate (*Crx) 4 Mg/Ml Inj IV PUSH 4 mg Q2H PRN Administration Breakthrough Pain Rated 7-10 or NPO Ondansetron HCl 4 mg 09/22/24 16:38 Ondansetron Inj 4 Mg/2 Ml Vial IV PUSH Q4H PRN Nausea Oxycodone/Acetaminophen 1 tablet 09/23/24 19:01 09/24/24 16:25 Oxycodone/Acetaminophen (*Crx) 5-325 Mg Tablet PO 1 tablet Q4H PRN Administration Pain Rated 4-6 Oxycodone/Acetaminophen 1 tab 09/23/24 19:01 09/28/24 10:42 Oxycodone/Acetaminophen (*Crx) 10-325 Mg Tablet PO 1 tab Q6H PRN Administration Pain Rated 7-10 Polyethylene Glycol 17 gm 09/24/24 09:00 09/28/24 09:23 Polyethylene Glycol 3350 17 Gm Powd.Pack PO 17 gm QAM ISABELLE Administration Rosuvastatin Calcium 10 mg 09/23/24 09:00 09/28/24 09:23 Rosuvastatin 10 Mg Tablet PO 10 mg DAILY ISABELLE Administration Senna/Docusate Sodium 2 tab 09/23/24 21:00 09/27/24 20:21 Senna/Docusate Sodium Tablet PO 2 tab HS ISABELLE Administration Radiology Results: ITS Impressions Venous Doppler Study 09/23/24 21:34 IMPRESSION: Negative bilateral lower extremity venous US. No deep vein thrombosis. Chest X-Ray 09/26/24 06:29 IMPRESSION: No active pulmonary disease Labs Labs: Laboratory Results - last 24 hr 09/27/24 09/27/24 09/28/24 16:24 20:04 06:24 WBC 6.5 RBC 3.14 L Hgb 8.5 L Hct 29.1 L MCV 92.7 MCH 27.1 MCHC 29.2 L RDW 16.2 H Plt Count 343 MPV 8.6 Immature Gran % (Auto) 5.2 H Neut % (Auto) 64.5 Lymph % (Auto) 12.5 L [place] % (Auto) 15.0 H Eos % (Auto) 2.0 Baso % (Auto) 0.8 Lymph # (Auto) 0.82 L [place] # (Auto) 1.0 H Eos # (Auto) 0.1 Baso # (Auto) 0.1 Abs Immat Gran (auto) 0.34 H Absolute Neuts (auto) 4.2 Absolute Nucleated RBC 0.000 Nucleated RBC % 0.0 Platelet Estimate Adequate Anisocytosis 1+ Ovalocytes 1+ Schistocytes None seen Sodium 137 Potassium 3.7 Chloride 101 Carbon Dioxide 30 Anion Gap 6 BUN 12 Creatinine 0.48 L Estim Creat Clear Calc 150 Estimated GFR > 60 Glucose 132 H POC Capillary Glucose 123 H 165 H Calcium 7.8 L Magnesium 2.2 Total Bilirubin 0.8 AST 24 ALT 20 Alkaline Phosphatase 65 Total Protein 7.0 Albumin 3.1 L 09/28/24 08:17 WBC RBC Hgb Hct MCV MCH MCHC RDW Plt Count MPV Immature Gran % (Auto) Neut % (Auto) Lymph % (Auto) [place] % (Auto) Eos % (Auto) Baso % (Auto) Lymph # (Auto) [place] # (Auto) Eos # (Auto) Baso # (Auto) Abs Immat Gran (auto) Absolute Neuts (auto) Absolute Nucleated RBC Nucleated RBC % Platelet Estimate Anisocytosis Ovalocytes Schistocytes Sodium Potassium Chloride Carbon Dioxide Anion Gap BUN Creatinine Estim Creat Clear Calc Estimated GFR Glucose POC Capillary Glucose 129 H Calcium Magnesium Total Bilirubin AST ALT Alkaline Phosphatase Total Protein Albumin
[2024-09-28 12:04] LABS: Glucose Point of Care 140 mg/dl (65-105)
--- NOTE | 2024-09-28 13:37 | P.PNIM_ITS ---
Progress Note: A&P Assessment and Plan (1) Cellulitis of left leg: Code(s): L03.116 - Cellulitis of left lower limb Status: Acute Assessment and Plan: -chronic wounds bilateral lower extremities due to PVD and lymphedema, worse on left -Significantly more swollen and red than right leg -Pus drainage from kearney wound cultured in ER will order doppler to r/u DVT- negative surgery consult- I/D multiple abscess 09/24 wound culture- group B strep on IV antibiotics dressing is c/d/i 09/27 culture showing Streptococcus. Patient is seen with Wound Care nurse. wound VAC in place. 09/28 anticipate discharge on PO antibiotics- keflex- in the next few days (2) Diabetes type 2: Code(s): E11.9 - Type 2 diabetes mellitus without complications Status: Acute Assessment and Plan: -HGB A1c 8.3 -ACHS Fingerstick glucose -Resume home Lantus 20 units and SSI hypoglycemia protocol held lantus for the last couple of mornings will add protein supplement bs reviewed- stable (3) Hypertension: Code(s): I10 - Essential (primary) hypertension Status: Acute Assessment and Plan: -Blood pressure reviewed and stable -Continue home medications (4) Hyperlipidemia: Code(s): E78.5 - Hyperlipidemia, unspecified Status: Acute Assessment and Plan: -Continue Crestor (5) Iron deficiency anemia: Code(s): D50.9 - Iron deficiency anemia, unspecified Status: Acute Assessment and Plan: -Chronic anemia noted on labs -Ordered anemia labs B12/Folate, iron/TIBC and ferritin -Iron count and %saturation quite low- will order replacement iV Plan anticipate discharge in the next few days- will swith to PO antibiotics and possibly will need a home wound vac Time Spent With Patient Time with patient: 25 - 35 minutes Subjective Date/time seen: 09/28/24 13:37 Interval history: his is a 74-year-old male patient with a history hypertension hyperlipidemia diabetes is admitted for left lower extremity cellulitis/possible abscess. Patient as peripheral vascular disease has been getting wounds and blisters his lower extremities. The leg has more red more swollen than usual. He had previously been oral doxycycline for months that has not helped. Patient reported initially he was a little short of breath on arrival to the emergency department they placed him oxygen temporarily and discontinued it and he has been short of breath since. Patient does not take a water pill. Echocardiogram in May 2024 showed Grade 1 diastolic dysfunction. I/D with Dr Gandhi yesterday 09/23. cultures were obtained. To OR for i/d again today under a local anesthesia. Pt is seen and examined. vs reviewed. HR better. he is feeling better overall, appetite improved. 09/26- resting in recliner with eyes closed. no acute events overnight. IV antibiotics. no n/v/d. pain is controlled. 09/27- c/o some pain. Woundvac in place. Working with care coordination for home woundvac set up. 09/28 PT/OT worked with pt- he did well. Anticipate discharge in the next few days to home with home health. Review of Systems Review of Systems: All systems reviewed & are unremarkable except as noted in HPI and below Cardiovascular: Cardiovascular: Denies chest pain Respiratory: Respiratory: Denies chest congestion Gastrointestinal: Gastrointestinal: Denies abdominal pain Exam Narrative: GENERAL: Well-appearing, well-nourished, and in no acute distress. HEAD: Normocephalic, atraumatic. ENT: Mucous membranes moist. NECK: Supple. CHEST: Clear to auscultation. No respiratory distress. HEART: Regular rate and rhythm. Normal peripheral pulses. ABDOMEN: Soft, nontender, nondistended. EXTREMITIES: Normal range of motion. Chronic venous stasis changes of bilateral lower extremities. SKIN: Warm, dry. Chronic ulcer shins of the lateral aspects lower legs near the ankle. Purulent drainage from anterior kearney wounds on left lower extremity. Significant erythema swelling to the left leg compared to the right. NEURO: Alert and oriented x3. PSYCH: Normal mood and affect. Objective Data Vital Signs Vital Signs: Vital Signs - 24 hr 09/27/24 14:00 09/27/24 16:00 09/27/24 20:00 Temperature 97.7 F Pulse Rate 97 82 73 Respiratory Rate 18 16 Blood Pressure 144/47 H Pulse Oximetry 92 95 Oxygen Delivery Room Air 09/27/24 20:00 09/27/24 22:00 09/28/24 00:00 Temperature 97.3 F L Pulse Rate 73 73 97 Respiratory Rate 16 Blood Pressure 132/46 L Pulse Oximetry 95 Oxygen Delivery 09/28/24 04:00 09/28/24 08:00 09/28/24 08:00 Temperature Pulse Rate 86 82 Respiratory Rate Blood Pressure Pulse Oximetry Oxygen Delivery Room Air Intake/Output Intake/Output: Intake & Output 09/25/24 09/26/24 09/27/24 09/28/24 23:59 23:59 23:59 23:59 Intake Total 4111 3320 1470 50 Balance 4111 3320 1470 50 Meds/Results Medications: Active Medications Generic Name Dose Route Start Last Admin Trade Name Freq PRN Reason Stop Dose Admin Acetaminophen 500 mg 09/23/24 19:01 Acetaminophen 500 Mg Tablet PO Q6H PRN Pain Rated 1-3 Aspirin 81 mg 09/23/24 09:00 09/28/24 09:23 Aspirin 81 Mg Enteric Tablet PO 81 mg DAILY ISABELLE Administration Dextrose 12.5 gm 09/22/24 23:19 Dextrose 50% 25 Gm/50 Ml Syringe IV PUSH PRN PRN Hypoglycemia Protocol Empagliflozin 10 mg 09/23/24 09:00 09/28/24 09:23 Empagliflozin 10 Mg Tablet PO 10 mg DAILY ISABELLE Administration Enoxaparin Sodium 40 mg 09/23/24 09:00 09/27/24 09:00 Enoxaparin 40 Mg/0.4 Ml Syringe SUB-Q 40 mg DAILY ISABELLE Administration Glucagon 1 mg 09/22/24 23:19 Glucagon For Inj 1 Mg Vial IM PRN PRN Hypoglycemia Protocol Glucose 15 gm 09/22/24 23:19 Glucose Oral Gel 15 Gm Of Glucse In 37.5 Gm Tube PO PRN PRN Hypoglycemia Protocol Dextrose 1,000 mls @ 100 mls/hr 09/22/24 23:19 Dextrose 5% 1,000 Ml IVPB PRN PRN Hypoglycemia Protocol Cefazolin Sodium 2 gm in 50 mls @ 100 mls/hr 09/23/24 14:00 09/28/24 07:00 Ancef 2 Gm/D5w 50 Ml IVPB Infused Q8HR ISABELLE Infusion Ibuprofen 800 mg in 200 mls @ 400 mls/hr 09/23/24 19:01 Caldolor 800 Mg/200 Ml IVPB Q6H PRN Breakthrough Pain Rated 1-3 or NPO Insulin Aspart 3 - 6 units 09/23/24 08:00 09/28/24 12:21 Insulin Aspart (*Bkc) 100 Units/Ml SUB-Q Not Given TIDWM ISABELLE Protocol Insulin Glargine 20 units 09/23/24 09:00 09/28/24 09:22 Insulin Glargine (*Bkc) 100 Units/Ml SUB-Q 20 units DAILY ISABELLE Administration Lisinopril 10 mg 09/23/24 09:00 09/28/24 09:23 Lisinopril 10 Mg Tablet PO 10 mg DAILY ISABELLE Administration Morphine Sulfate 2 mg 09/23/24 19:01 Morphine Sulfate (*Crx) 2 Mg/Ml Inj IV PUSH Q2H PRN Breakthrough Pain Rated 4-6 or NPO Morphine Sulfate 4 mg 09/23/24 19:01 09/27/24 22:28 Morphine Sulfate (*Crx) 4 Mg/Ml Inj IV PUSH 4 mg Q2H PRN Administration Breakthrough Pain Rated 7-10 or NPO Ondansetron HCl 4 mg 09/22/24 16:38 Ondansetron Inj 4 Mg/2 Ml Vial IV PUSH Q4H PRN Nausea Oxycodone/Acetaminophen 1 tablet 09/23/24 19:01 09/24/24 16:25 Oxycodone/Acetaminophen (*Crx) 5-325 Mg Tablet PO 1 tablet Q4H PRN Administration Pain Rated 4-6 Oxycodone/Acetaminophen 1 tab 09/23/24 19:01 09/28/24 10:42 Oxycodone/Acetaminophen (*Crx) 10-325 Mg Tablet PO 1 tab Q6H PRN Administration Pain Rated 7-10 Polyethylene Glycol 17 gm 09/24/24 09:00 09/28/24 09:23 Polyethylene Glycol 3350 17 Gm Powd.Pack PO 17 gm QAM ISABELLE Administration Rosuvastatin Calcium 10 mg 09/23/24 09:00 09/28/24 09:23 Rosuvastatin 10 Mg Tablet PO 10 mg DAILY ISABELLE Administration Senna/Docusate Sodium 2 tab 09/23/24 21:00 09/27/24 20:21 Senna/Docusate Sodium Tablet PO 2 tab HS ISABELLE Administration Radiology Results: ITS Impressions Venous Doppler Study 09/23/24 21:34 IMPRESSION: Negative bilateral lower extremity venous US. No deep vein thrombosis. Chest X-Ray 09/26/24 06:29 IMPRESSION: No active pulmonary disease Labs Labs: Laboratory Results - last 24 hr 09/27/24 09/27/24 09/28/24 16:24 20:04 06:24 WBC 6.5 RBC 3.14 L Hgb 8.5 L Hct 29.1 L MCV 92.7 MCH 27.1 MCHC 29.2 L RDW 16.2 H Plt Count 343 MPV 8.6 Immature Gran % (Auto) 5.2 H Neut % (Auto) 64.5 Lymph % (Auto) 12.5 L Petroleum % (Auto) 15.0 H Eos % (Auto) 2.0 Baso % (Auto) 0.8 Lymph # (Auto) 0.82 L Petroleum # (Auto) 1.0 H Eos # (Auto) 0.1 Baso # (Auto) 0.1 Abs Immat Gran (auto) 0.34 H Absolute Neuts (auto) 4.2 Absolute Nucleated RBC 0.000 Nucleated RBC % 0.0 Platelet Estimate Adequate Anisocytosis 1+ Ovalocytes 1+ Schistocytes None seen Sodium 137 Potassium 3.7 Chloride 101 Carbon Dioxide 30 Anion Gap 6 BUN 12 Creatinine 0.48 L Estim Creat Clear Calc 150 Estimated GFR > 60 Glucose 132 H POC Capillary Glucose 123 H 165 H Calcium 7.8 L Magnesium 2.2 Total Bilirubin 0.8 AST 24 ALT 20 Alkaline Phosphatase 65 Total Protein 7.0 Albumin 3.1 L 09/28/24 09/28/24 08:17 11:59 WBC RBC Hgb Hct MCV MCH MCHC RDW Plt Count MPV Immature Gran % (Auto) Neut % (Auto) Lymph % (Auto) Petroleum % (Auto) Eos % (Auto) Baso % (Auto) Lymph # (Auto) Petroleum # (Auto) Eos # (Auto) Baso # (Auto) Abs Immat Gran (auto) Absolute Neuts (auto) Absolute Nucleated RBC Nucleated RBC % Platelet Estimate Anisocytosis Ovalocytes Schistocytes Sodium Potassium Chloride Carbon Dioxide Anion Gap BUN Creatinine Estim Creat Clear Calc Estimated GFR Glucose POC Capillary Glucose 129 H 140 H Calcium Magnesium Total Bilirubin AST ALT Alkaline Phosphatase Total Protein Albumin Quality VTE Prophylaxis VTE prophylaxis: pharmacologic ordered
[2024-09-28] MEDS: ENOXAPARIN 40 MG/0.4 ML SYRINGE SUB-Q (14:10)
[2024-09-28 17:29] LABS: Glucose Point of Care 146 mg/dl (65-105)
[2024-09-28 20:21] LABS: Glucose Point of Care 155 mg/dl (65-105)
[2024-09-28] MEDS: CEPHALEXIN 500 MG CAPSULE PO (23:21)
[2024-09-28] MEDS: SENNA/DOCUSATE SODIUM TABLET 2 TAB PO (23:22)
[2024-09-29] VITALS (7 sets, daily range): BP systolic 130–141; BP diastolic 42–65; PULSE 64–92; RESP 13–22; TEMP 36.1–37; O2SAT 96–99
[2024-09-29] MEDS: CEPHALEXIN 500 MG CAPSULE PO ×4 (05:13→23:38)
[2024-09-29] MEDS: oxyCODONE/ACETAMINOPHEN (*CRX) 10-325 MG TABLET 1 TAB PO ×4 (05:29→23:38)
--- OUTSIDE RECORDS SUMMARY | 2024-09-29 05:53 | XMS_ITS | Data Portability ---
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 Dermatology for his legs. Continue other medications for his problems and the assessment and plan blood work for biochemical management of disease processes and medications. Follow-up with me in 4 months. Obtain old records staff may look at immunizations and screenings [email or web address] Not available 02/01/2024 23:50:34 05/31/2024 05/31/2024 echocardiogram. Blood work. Healthy lifestyle care instructions. Cologuard. Follow up 3 months. [email or web address] Not available 06/20/2024 14:09:26 Plan of Treatment Reminders Order Date Submit Date Provider Last Modified By Organization Details Last Modified Time Details Appointments ANY 15 2024 09:30A M Brittanie Rose MD Not available Not available Not available Lab HbA1c (hemoglob in A1c), blood 2023 024 MILENA [facility], [address], [place], [address], 01/30/2024 11:17:45 albumin/c reatinine , mass ratio, urine 2023 024 MILENA [facility], [address], [place], [address], 01/30/2024 11:17:43 CBC w/ auto diff 2023 024 STEHEKIN [facility], [address], [place], [address], 01/30/2024 11:17:46 lipid panel, serum 2023 024 STEHEKIN Rafael, [address], [place], [address], 01/30/2024 11:17:44 CMP, serum or plasma 2023 024 MILENA Rafael, [address], [place], [address], 01/30/2024 11:17:44 HbA1c (hemoglob in A1c), blood 2023 024 MILENA Rafael, [address], [place], [address], 06/01/2024 12:37:32 vitamin D, 25-hydrox y, total, serum 2023 024 [facility]IN [facility], [address], [place], [address], 06/01/2024 12:37:34 PSA, total, serum or plasma 2023 024 STEHEKIN Rafael, [address], [place], [address], 06/01/2024 12:37:33 noninvasi ve colorecta l cancer DNA + occult blood screening , QL, stool 2023 024 STEHEKIN [facility] (Cologuard Orders Only), [address], [place], [address], 06/09/2024 10:04:54 CBC w/ auto diff 2023 024 STEHEKIN Nina, [address], [place], [address], 06/01/2024 12:37:32 CMP, serum or plasma 2023 STEHEKIN [facility], [address], [place], [address], 06/01/2024 12:37:31 lipid panel, serum 2023 STEHEKIN [facility], [address], [place], [address], 06/01/2024 12:37:31 Referral dermatolo gist referral 2023 STEHEKIN [facility], [facility] [place], [address], 06/13/2024 22:14:55 Procedures None recorded. Surgeries None recorded. Imaging US, echocardi ogram 2023 [facility] [address], [place], [address], 06/16/2024 10:19:21 Medication Orders doxycycli ne hyclate 100 mg tablet 2023 [facility] [id number] [facility], [address] [place], [address], 05/31/2024 09:49:59 Patient TargetsNo targets recorded. 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 Not Available [facility] ([facility]) [address] [place], [address], 01/30/2024 11:17:43 01/29/20 24 01/30/2024 ALBUM IN/CR EATIN INE RATIO ,URIN E albumin, urine 3.4 ug/mL notest ab. Not Available [facility] ([facility]) [address] [place], [address], 01/30/2024 11:17:43 01/29/20 24 01/30/2024 ALBUM IN/CR EATIN INE RATIO ,URIN E alb/creat ratio 8 mg/g_ creat 0-29 Emily l: 0 - 29 Moder ately incre ased: 30 - 300 Sever faith incre ased: >300 Not Available [facility] ([facility]) [address] [place], [address], 01/30/2024 11:17:43 01/29/20 24 01/30/2024 LIPID PANEL cholesterol, total 165 mg/dL 100-19 9 Not Available [facility] ([facility]) [address] [place], [address], 01/30/2024 11:17:44 01/29/20 24 01/30/2024 LIPID PANEL triglyceride s 133 mg/dL 0-149 Not Available [facility] ([facility]) [address] [place], [address], 01/30/2024 11:17:44 01/29/20 24 01/30/2024 LIPID PANEL HDL cholesterol 32 mg/dL >39 below low normal Not Available [facility] ([facility]) [address] [place], [address], 01/30/2024 11:17:44 01/29/20 24 01/30/2024 LIPID PANEL VLDL cholesterol ramin 24 mg/dL 5-40 Not Available [facility] ([facility]) [address] [place], [address], 01/30/2024 11:17:44 01/29/20 24 01/30/2024 LIPID PANEL LDL chol calc ([facility]) 109 mg/dL 0-99 above high normal Not Available [facility] ([facility]) [address] [place], [address], 01/30/2024 11:17:44 01/29/20 24 01/30/2024 COMP. METAB OLIC PANEL (14) glucose 133 mg/dL 70-99 above high normal Not Available [facility] ([facility]) [address] [place], [address], 01/30/2024 11:17:44 01/29/20 24 01/30/2024 COMP. METAB OLIC PANEL (14) BUN 19 mg/dL 8-27 Not Available [facility] ([facility]) [address] [place], [address], 01/30/2024 11:17:44 01/29/20 24 01/30/2024 COMP. METAB OLIC PANEL (14) creatinine 0.76 mg/dL 0.76-1 .27 Not Available [facility] ([facility]) [address] [place], [address], 01/30/2024 11:17:44 01/29/20 24 01/30/2024 COMP. METAB OLIC PANEL (14) eGFR 95 mL/mi n/1.7 3 >59 Not Available [facility] ([facility]) [address] [place], [address], 01/30/2024 11:17:44 01/29/20 24 01/30/2024 COMP. METAB OLIC PANEL (14) BUN/creatini ne ratio 25 10-24 above high normal Not Available [facility] ([facility]) [address] [place], [address], 01/30/2024 11:17:44 01/29/20 24 01/30/2024 COMP. METAB OLIC PANEL (14) sodium 140 mmol/ L 134-14 4 Not Available [facility] ([facility]) [address] [place], [address], 01/30/2024 11:17:44 01/29/20 24 01/30/2024 COMP. METAB OLIC PANEL (14) potassium 4.5 mmol/ L 3.5-5. 2 Not Available [facility] ([facility]) [address] [place], [address], 01/30/2024 11:17:44 01/29/20 24 01/30/2024 COMP. METAB OLIC PANEL (14) chloride 101 mmol/ L 96-106 Not Available [facility] ([facility]) [address] [facility], [place], [address], 01/30/2024 11:17:44 01/29/20 24 01/30/2024 COMP. METAB OLIC PANEL (14) carbon dioxide, total 22 mmol/ L 20-29 Not Available [facility] ([facility]) [address] [place], [address], 01/30/2024 11:17:44 01/29/20 24 01/30/2024 COMP. METAB OLIC PANEL (14) calcium 9.6 mg/dL 8.6-10 .2 Not Available [facility] ([facility]) [address] [place], [address], 01/30/2024 11:17:44 01/29/20 24 01/30/2024 COMP. METAB OLIC PANEL (14) protein, total 6.9 g/dL 6.0-8. 5 Not Available [facility] ([facility]) [address] [place], [address], 01/30/2024 11:17:44 01/29/20 24 01/30/2024 COMP. METAB OLIC PANEL (14) albumin 4.3 g/dL 3.8-4. 8 Not Available [facility] ([facility]) [address] [place], [address], 01/30/2024 11:17:44 01/29/20 24 01/30/2024 COMP. METAB OLIC PANEL (14) globulin, total 2.6 g/dL 1.5-4. 5 Not Available [facility] ([facility]) [address] [place], [address], 01/30/2024 11:17:44 01/29/20 24 01/30/2024 COMP. METAB OLIC PANEL (14) A/G ratio 1.7 1.2-2. 2 Not Available [facility] ([facility]) [address] [place], [address], 01/30/2024 11:17:44 01/29/20 24 01/30/2024 COMP. METAB OLIC PANEL (14) bilirubin, total 1.3 mg/dL 0.0-1. 2 above high normal Not Available [facility] ([facility]) [address] [place], [address], 01/30/2024 11:17:44 01/29/20 24 01/30/2024 COMP. METAB OLIC PANEL (14) alkaline phosphatase 72 IU/L 44-121 Not Available [facility] ([facility]) [address] [place], [address], 01/30/2024 11:17:44 01/29/20 24 01/30/2024 COMP. METAB OLIC PANEL (14) AST (SGOT) 13 IU/L 0-40 Not Available [facility] ([facility]) [address] [place], [address], 01/30/2024 11:17:44 01/29/20 24 01/30/2024 COMP. METAB OLIC PANEL (14) ALT (SGPT) 14 IU/L 0-44 Not Available [facility] ([facility]) [address] [facility], [place], [address], 01/30/2024 11:17:44 01/29/20 24 01/30/2024 HEMOG LOBIN A1C hemoglobin A1C 8.1 % 4.8-5. 6 above high normal Predi abete s: 5.7 - 6.4 Diabe sofia: >6.4 Glyce denise contr ol for adult s with diabe sofia: <7.0 Not Available [facility] ([facility]) [address] [facility], [place], [address], 01/30/2024 11:17:45 01/29/20 24 01/30/2024 CBC WITH DIFFE RENTI AL/PL ATELE T WBC 7.7 x10e3 /uL 3.4-10 .8 Not Available [facility] ([facility]) [address] [facility], [place], [address], 01/30/2024 11:17:46 01/29/20 24 01/30/2024 CBC WITH DIFFE RENTI AL/PL ATELE T RBC 4.42 x10e6 /uL 4.14-5 .80 Not Available [facility] ([facility]) [address] [facility], [place], [address], 01/30/2024 11:17:46 01/29/20 24 01/30/2024 CBC WITH DIFFE RENTI AL/PL ATELE T hemoglobin 12.8 g/dL 13.0-1 7.7 below low normal Not Available [facility] ([facility]) [address] [place], [address], 01/30/2024 11:17:46 01/29/20 24 01/30/2024 CBC WITH DIFFE RENTI AL/PL ATELE T hematocrit 39.9 % 37.5-5 1.0 Not Available [facility] ([facility]) [address] [place], [address], 01/30/2024 11:17:46 01/29/20 24 01/30/2024 CBC WITH DIFFE RENTI AL/PL ATELE T MCV 90 fL 79-97 Not Available [facility] ([facility]) [address] [facility], [place], [address], 01/30/2024 11:17:46 01/29/20 24 01/30/2024 CBC WITH DIFFE RENTI AL/PL ATELE T MCH 29.0 pg 26.6-3 3.0 Not Available [facility] ([facility]) [address] [facility], [place], [address], 01/30/2024 11:17:46 01/29/20 24 01/30/2024 CBC WITH DIFFE RENTI AL/PL ATELE T MCHC 32.1 g/dL 31.5-3 5.7 Not Available [facility] ([facility]) [address] [facility], [place], [address], 01/30/2024 11:17:46 01/29/20 24 01/30/2024 CBC WITH DIFFE RENTI AL/PL ATELE T RDW 15.0 % 11.6-1 5.4 Not Available [facility] ([facility]) [address] [facility], [place], [address], 01/30/2024 11:17:46 01/29/20 24 01/30/2024 CBC WITH DIFFE RENTI AL/PL ATELE T platelets 304 x10e3 /uL 150-45 0 Not Available [facility] ([facility]) [address] [facility], [place], [address], 01/30/2024 11:17:46 01/29/20 24 01/30/2024 CBC WITH DIFFE RENTI AL/PL ATELE T neutrophils 75 % notest ab. Not Available [facility] ([facility]) [address] [facility], [place], [address], 01/30/2024 11:17:46 01/29/20 24 01/30/2024 CBC WITH DIFFE RENTI AL/PL ATELE T lymphs 12 % notest ab. Not Available [facility] ([facility]) [address] [facility], [place], [address], 01/30/2024 11:17:46 01/29/20 24 01/30/2024 CBC WITH DIFFE RENTI AL/PL ATELE T monocytes 10 % notest ab. Not Available [facility] ([facility]) [address] [facility], [place], [address], 01/30/2024 11:17:46 01/29/20 24 01/30/2024 CBC WITH DIFFE RENTI AL/PL ATELE T eos 1 % notest ab. Not Available [facility] ([facility]) [address] [facility], [place], [address], 01/30/2024 11:17:46 01/29/20 24 01/30/2024 CBC WITH DIFFE RENTI AL/PL ATELE T basos 1 % notest ab. Not Available [facility] ([facility]) [address] [facility], [place], [address], 01/30/2024 11:17:46 01/29/20 24 01/30/2024 CBC WITH DIFFE RENTI AL/PL ATELE T neutrophils (absolute) 5.8 x10e3 /uL 1.4-7. 0 Not Available [facility] ([facility]) [address] [facility], [place], [address], 01/30/2024 11:17:46 01/29/20 24 01/30/2024 CBC WITH DIFFE RENTI AL/PL ATELE T lymphs (absolute) 0.9 x10e3 /uL 0.7-3. 1 Not Available [facility] ([facility]) [address] [facility], [place], [address], 01/30/2024 11:17:46 01/29/20 24 01/30/2024 CBC WITH DIFFE RENTI AL/PL ATELE T monocytes(ab solute) 0.8 x10e3 /uL 0.1-0. 9 Not Available [facility] ([facility]) [address] [place], [address], 01/30/2024 11:17:46 01/29/20 24 01/30/2024 CBC WITH DIFFE RENTI AL/PL ATELE T eos (absolute) 0.1 x10e3 /uL 0.0-0. 4 Not Available [facility] ([facility]) [address] [facility], [place], [address], 01/30/2024 11:17:46 01/29/20 24 01/30/2024 CBC WITH DIFFE RENTI AL/PL ATELE T baso (absolute) 0.0 x10e3 /uL 0.0-0. 2 Not Available [facility] ([facility]) [address] [place], [address], 01/30/2024 11:17:46 01/29/20 24 01/30/2024 CBC WITH DIFFE RENTI AL/PL ATELE T immature granulocytes 1 % notest ab. Not Available [facility] ([facility]) [address] [place], [address], 01/30/2024 11:17:46 01/29/20 24 01/30/2024 CBC WITH DIFFE RENTI AL/PL ATELE T immature grans (abs) 0.0 x10e3 /uL 0.0-0. 1 Not Available [facility] ([facility]) [address] [place], [address], 01/30/2024 11:17:46 05/31/20 24 06/01/2024 LIPID PANEL cholesterol, total 190 mg/dL 100-19 9 Not Available [facility] ([facility]) [address] [place], [address], 06/01/2024 12:37:31 05/31/20 24 06/01/2024 LIPID PANEL triglyceride s 185 mg/dL 0-149 above high normal Not Available [facility] ([facility]) [address] [place], [address], 06/01/2024 12:37:31 05/31/20 24 06/01/2024 LIPID PANEL HDL cholesterol 38 mg/dL >39 below low normal Not Available [facility] ([facility]) [address] [place], [address], 06/01/2024 12:37:31 05/31/20 24 06/01/2024 LIPID PANEL VLDL cholesterol ramin 33 mg/dL 5-40 Not Available [facility] ([facility]) [address] [place], [address], 06/01/2024 12:37:31 05/31/20 24 06/01/2024 LIPID PANEL LDL chol calc ([facility]) 119 mg/dL 0-99 above high normal Not Available [facility] ([facility]) [address] [place], [address], 06/01/2024 12:37:31 05/31/20 24 06/01/2024 COMP. METAB OLIC PANEL (14) glucose 198 mg/dL 70-99 above high normal Not Available [facility] ([facility]) [address] [place], [address], 06/01/2024 12:37:31 05/31/20 24 06/01/2024 COMP. METAB OLIC PANEL (14) BUN 18 mg/dL 8-27 Not Available [facility] ([facility]) [address] [place], [address], 06/01/2024 12:37:31 05/31/20 24 06/01/2024 COMP. METAB OLIC PANEL (14) creatinine 0.63 mg/dL 0.76-1 .27 below low normal Not Available [facility] ([facility]) [address] [place], [address], 06/01/2024 12:37:31 05/31/20 24 06/01/2024 COMP. METAB OLIC PANEL (14) eGFR 100 mL/mi n/1.7 3 >59 Not Available [facility] ([facility]) [address] [facility], [place], [address], 06/01/2024 12:37:31 05/31/20 24 06/01/2024 COMP. METAB OLIC PANEL (14) BUN/creatini ne ratio 29 10-24 above high normal Not Available [facility] ([facility]) [address] [facility], [place], [address], 06/01/2024 12:37:31 05/31/20 24 06/01/2024 COMP. METAB OLIC PANEL (14) sodium 139 mmol/ L 134-14 4 Not Available [facility] ([facility]) [address] [facility], [place], [address], 06/01/2024 12:37:31 05/31/20 24 06/01/2024 COMP. METAB OLIC PANEL (14) potassium 4.3 mmol/ L 3.5-5. 2 Not Available [facility] ([facility]) [address] [facility], [place], [address], 06/01/2024 12:37:31 05/31/20 24 06/01/2024 COMP. METAB OLIC PANEL (14) chloride 101 mmol/ L 96-106 Not Available [facility] ([facility]) [address] [place], [address], 06/01/2024 12:37:31 05/31/20 24 06/01/2024 COMP. METAB OLIC PANEL (14) carbon dioxide, total 23 mmol/ L 20-29 Not Available [facility] ([facility]) [address] [facility], [place], [address], 06/01/2024 12:37:31 05/31/20 24 06/01/2024 COMP. METAB OLIC PANEL (14) calcium 9.1 mg/dL 8.6-10 .2 Not Available [facility] ([facility]) [address] [place], [address], 06/01/2024 12:37:31 05/31/20 24 06/01/2024 COMP. METAB OLIC PANEL (14) protein, total 6.7 g/dL 6.0-8. 5 Not Available [facility] ([facility]) [address] [place], [address], 06/01/2024 12:37:31 05/31/20 24 06/01/2024 COMP. METAB OLIC PANEL (14) albumin 4.2 g/dL 3.8-4. 8 Not Available [facility] ([facility]) [address] [place], [address], 06/01/2024 12:37:31 05/31/20 24 06/01/2024 COMP. METAB OLIC PANEL (14) globulin, total 2.5 g/dL 1.5-4. 5 Not Available [facility] ([facility]) [address] [place], [address], 06/01/2024 12:37:31 05/31/20 24 06/01/2024 COMP. METAB OLIC PANEL (14) bilirubin, total 1.3 mg/dL 0.0-1. 2 above high normal Not Available [facility] ([facility]) [address] [place], [address], 06/01/2024 12:37:31 05/31/20 24 06/01/2024 COMP. METAB OLIC PANEL (14) alkaline phosphatase 66 IU/L 44-121 Not Available [facility] ([facility]) [address] [place], [address], 06/01/2024 12:37:31 05/31/20 24 06/01/2024 COMP. METAB OLIC PANEL (14) AST (SGOT) 15 IU/L 0-40 Not Available [facility] ([facility]) [address] [place], [address], 06/01/2024 12:37:31 05/31/2006/01/2024 COMP. METAB OLIC PANEL (14) ALT (SGPT) 14 IU/L 0-44 Not Available [facility] ([facility]) [address] [facility], [place], [address], 06/01/2024 12:37:31 05/31/20 24 06/01/2024 HEMOG LOBIN A1C hemoglobin A1C 10.4 % 4.8-5. 6 above high normal Predi abete s: 5.7 - 6.4 Diabe sofia: >6.4 Glyce denise contr ol for adult s with diabe sofia: <7.0 Not Available [facility] ([facility]) [address] [facility], [place], [address], 06/01/2024 12:37:32 05/31/2006/01/2024 CBC WITH DIFFE RENTI AL/PL ATELE T WBC 9.1 x10e3 /uL 3.4-10 .8 Not Available [facility] ([facility]) [address] [facility], [place], [address], 06/01/2024 12:37:32 05/31/2006/01/2024 CBC WITH DIFFE RENTI AL/PL ATELE T RBC 4.26 x10e6 /uL 4.14-5 .80 Not Available [facility] ([facility]) [address] [place], [address], 06/01/2024 12:37:32 05/31/2006/01/2024 CBC WITH DIFFE RENTI AL/PL ATELE T hemoglobin 12.9 g/dL 13.0-1 7.7 below low normal Not Available [facility] ([facility]) [address] [place], [address], 06/01/2024 12:37:32 05/31/20 24 06/01/2024 CBC WITH DIFFE RENTI AL/PL ATELE T hematocrit 40.8 % 37.5-5 1.0 Not Available [facility] ([facility]) [address] [facility], [place], [address], 06/01/2024 12:37:32 05/31/2006/01/2024 CBC WITH DIFFE RENTI AL/PL ATELE T MCV 96 fL 79-97 Not Available [facility] ([facility]) [address] [facility], [place], [address], 06/01/2024 12:37:32 05/31/2006/01/2024 CBC WITH DIFFE RENTI AL/PL ATELE T MCH 30.3 pg 26.6-3 3.0 Not Available [facility] ([facility]) [address] [facility], [place], [address], 06/01/2024 12:37:32 05/31/2006/01/2024 CBC WITH DIFFE RENTI AL/PL ATELE T MCHC 31.6 g/dL 31.5-3 5.7 Not Available [facility] ([facility]) [address] [facility], [place], [address], 06/01/2024 12:37:32 05/31/2006/01/2024 CBC WITH DIFFE RENTI AL/PL ATELE T RDW 15.7 % 11.6-1 5.4 above high normal Not Available [facility] ([facility]) [address] [place], [address], 06/01/2024 12:37:32 05/31/2006/01/2024 CBC WITH DIFFE RENTI AL/PL ATELE T platelets 213 x10e3 /uL 150-45 0 Not Available [facility] ([facility]) [address] [place], [address], 06/01/2024 12:37:32 05/31/20 24 06/01/2024 CBC WITH DIFFE RENTI AL/PL ATELE T neutrophils 81 % notest ab. Not Available [facility] ([facility]) [address] [facility], [place], [address], 06/01/2024 12:37:32 05/31/20 24 06/01/2024 CBC WITH DIFFE RENTI AL/PL ATELE T lymphs 11 % notest ab. Not Available [facility] ([facility]) [address] [facility], [place], [address], 06/01/2024 12:37:32 05/31/20 24 06/01/2024 CBC WITH DIFFE RENTI AL/PL ATELE T monocytes 6 % notest ab. Not Available [facility] ([facility]) [address] [facility], [place], [address], 06/01/2024 12:37:32 05/31/20 24 06/01/2024 CBC WITH DIFFE RENTI AL/PL ATELE T eos 1 % notest ab. Not Available [facility] ([facility]) [address] [facility], [place], [address], 06/01/2024 12:37:32 05/31/20 24 06/01/2024 CBC WITH DIFFE RENTI AL/PL ATELE T basos 0 % notest ab. Not Available [facility] ([facility]) [address] [facility], [place], [address], 06/01/2024 12:37:32 05/31/20 24 06/01/2024 CBC WITH DIFFE RENTI AL/PL ATELE T neutrophils (absolute) 7.4 x10e3 /uL 1.4-7. 0 above high normal Not Available [facility] ([facility]) [address] [facility], [place], [address], 06/01/2024 12:37:32 05/31/20 24 06/01/2024 CBC WITH DIFFE RENTI AL/PL ATELE T lymphs (absolute) 1.0 x10e3 /uL 0.7-3. 1 Not Available [facility] ([facility]) [address] [facility], [place], [address], 06/01/2024 12:37:32 05/31/20 24 06/01/2024 CBC WITH DIFFE RENTI AL/PL ATELE T monocytes(ab solute) 0.5 x10e3 /uL 0.1-0. 9 Not Available [facility] ([facility]) [address] [facility], [place], [address], 06/01/2024 12:37:32 05/31/2006/01/2024 CBC WITH DIFFE RENTI AL/PL ATELE T eos (absolute) 0.1 x10e3 /uL 0.0-0. 4 Not Available [facility] ([facility]) [address] [facility], [place], [address], 06/01/2024 12:37:32 05/31/20 24 06/01/2024 CBC WITH DIFFE RENTI AL/PL ATELE T baso (absolute) 0.0 x10e3 /uL 0.0-0. 2 Not Available [facility] ([facility]) [address] [facility], [place], [address], 06/01/2024 12:37:32 05/31/20 24 06/01/2024 CBC WITH DIFFE RENTI AL/PL ATELE T immature granulocytes 1 % notest ab. Not Available [facility] ([facility]) [address], [place], [address], 06/01/2024 12:37:32 05/31/20 24 06/01/2024 CBC WITH DIFFE RENTI AL/PL ATELE T immature grans (abs) 0.1 x10e3 /uL 0.0-0. 1 Not Available [facility] ([facility]) [address], [place], [address], 06/01/2024 12:37:32 05/31/20 24 06/01/2024 PROST ATE-S PECIF IC AG prostate specific Ag 2.3 NG/mL 0.0-4. 0 Eduar ECLIA metho dolog y. Accor ding to the Ameri can Urolo gical Assoc iatio n, Serum PSA shoul d decre ase and remai n at undet ectab le level s after radic al prost atect osmin. The AUA defin es bioch emica l recur rence as an initi al PSA value 0.2 ng/mL or great er follo wed by a subse quent confi rmato ry PSA value 0.2 ng/mL or great er. Value s obtai shelia with diffe rent assay metho ds or kits canno t be used inter agustin eably . Resul ts canno t be inter prete d as absol [place] evide nce of the prese nce or absen ce of madhuri morrissey se. Not Available [facility] ([facility]) [address], [place], [address], 06/01/2024 12:37:33 05/31/20 24 06/01/2024 VITAM IN D, 25-HY DROXY vitamin D, 25-hydroxy 18.4 NG/mL 30.0-1 00.0 below low normal Vitam in D defic iency has been defin ed by the Insti tute of Medic ine and an Endoc rine Socie ty pract ice guide line as a level of serum 25-OH vitam in D less than 20 ng/mL (1,2) . The Endoc rine Socie ty went on to furth er defin e vitam in D insuf ficie ncy as a level betwe en 21 and 29 ng/mL (2). 1. IOM (Inst itute of Medic ine). 2009. Dieta ry refer ence intak es for calci um and D. Sharee crawford [place]: The Natio nal [employer] . 2. Taylor bonner MF, Chyna ey [place], Bispaige off-F errar i MAYS, et al. Evalu ation , treat ment, and preve ntion of vitam in D defic iency : an Endoc rine Socie ty clini ramin pract ice guide line. JCEM. 2010; 96(7) :1911 -30. Not Available [facility] ([facility]) [address], [place], [address], 06/01/2024 12:37:34 06/04/20 24 06/04/2024 COLOG UARD cologuard result reportable NEGATI VE negati ve normal NEGAT JOSUÉ TEST RESUL T. A negat josué Colog uard resul t indic ates a low likel ihood that a color ectal cance r (CRC) or advan joselito adeno ma (amilcar omato us polyp s with more advan joselito pre-m align ant featu res) is prese nt. The chanc e that a perso n with a negat josué Colog uard test has a color ectal cance r is less than 1 in 1500 (nega tive predi ctive value >99.9 %) or has an advan joselito adeno ma is less than 5.3% (nega tive predi ctive value 94.7% ). These data are based on a prosp ectiv e cross -sect ional study of 10,00 0 indiv idual s at [place] ge risk for color ectal cance r who were scree shelia with both Colog uard and colon oscop y. (Lo Salgado. et al, N Engl J Med 2014; 370(1 4):12 86-12 97) The emily l value (refe rence range ) for this assay is negat josué. COLOG UARD RE-SC REENI NG RECOM MENDA TION: Perio dic color ectal cance r scree rory is an impor tant part of preve ntive healt hcare for asymp tomat ic indiv idual s at [place] ge risk for color ectal cance r. Follo wing a negat josué Colog uard resul t, the Ameri can Cance r Socie ty and U.S. Multi -Soci ety Task Force scree rory guide lines recom mend a Colog uard re-sc reeni ng inter diana of 3 years . Refer ences : Ameri can Cance r Socie ty Guide line for Color ectal Cance r Scree rory: https ://kasi w.can cer.o rg/ca ncer/ colon -rect al-ca ncer/ detec tion- diagn osis- stagi ng/ac s-rec ommen datio ns.ht ml.; Shon DK, Slim muñoz CR, Armida melton JK, Color ectal Cance r Scree rory: Recom menda tions for Physi cians and Patie nts from the U.S. Multi -Soci ety Task Force on Color ectal Cance r Scree rory , Am J Gastr oente rolog y 2017; 112:1 016-1 030. TEST DESCR IPTIO N: [place] site algor ithmi c carmen sis of stool DNA-b ioashish rutledge with hemog lobin immun oassa y. Quant itati ve value s of indiv idual bioma rkers are not repor table and are not assoc iated with indiv idual bioma rker resul t refer ence range s. Colog uard is inten ded for color ectal cance r scree rory of adult s of eithe r sex, 45 years or older , who are at [facility] for color ectal cance r (CRC) . Colog uard has been appro patricia for use by the U.S. FDA. The perfo rmanc e of Colog uard was estab lishe d in a cross secti onal study of [facility] adult s aged 50-84 . Colog uard perfo rmanc e in patie nts ages 45 to 49 years was estim ated by sub-g roup carmen sis of near- age group s. Colon oscop ies perfo rmed for a posit josué resul t may find as the most clini rohan signi ronaldo salgado lesgregg n: color ectal cance r [4.0% ], advan joselito adeno ma (incl uding sessi le nura denise polyp s great er than or equal to 1cm diame ter) [20%] or non- advan joselito adeno ma [31%] ; or no color ectal neopl luis [45%] . These estim ates are deriv ed from a prosp ectiv e cross -sect ional scree rory study of , 0 [facility] risk for color ectal cance r who were scree shelia with both Colog uard and colon oscop y. (Lo Dorman al, N Engl J Med 2014; 370(1 4):12 86-12 97.) Colog uard may produ ce a false negat josué or false posit josué resul t (no color ectal cance r or preca ncero us polyp prese nt at colon oscop y follo w up). A negat josué Colog uard test resul t does not guara ntee the absen ce of CRC or advan joselito adeno ma (pre- cance r). The curre nt Colog uard scree rory inter diana is every 3 years . (Amer ican Cance r Socie ty and U.S. Multi -Soci ety Task Force ). Colog uard perfo rmanc e data in a 0 patie nt pivot al study using colon oscop y as the refer ence metho d can be acces sed at the follo wing locat ion: www.e xactl abs.c om/re ralph . Addit ional descr iptio n of the Colog uard test proce ss, warni ngs and preca ution s can be found at www.c fara gainesd.c om. Not Available [facility] (Cologuard Orders Only) [address], [place], [address], 06/09/2024 10:04:54 06/16/20 24 06/16/2024 US, echoc ardio gram No observ ation record ed. [facility] [address], [place], [address], 06/18/2024 17:08:14 09/23/19 25 09/23/2024 US, doppl er, venou s No observ ation record ed. [facility] [address], [place], [address], 09/24/2024 08:59:27 09/26/19 25 09/25/2024 XR, chest No observ ation record ed. [email or web address] [facility] [address], [place], [address], 09/28/2024 17:31:49 Result Notes None recorded. Problems Name Problem SNOMED Code Status Onset Date Resolution Date Notes Provider Name and Address Organization Details Recorded Time Type 2 diabetes mellitus 02917389 Active 2023 Brittanie Rose MD Attn: Danielle elyse,[address] [facility], [place], [address], [place] - [facility] 4 23:48:14 Essential hypertension 03263774 Active 2023 Brittanie Rose MD Attn: Danielle elyse,[address] [facility], [place], [address], [facility] - [facility] 4 23:48:17 Hyperlipidemia 83661699 Active 2023 Brittanie Rose MD Attn: Danielle pappas,[address] [facility], [place], [address], [place] - [facility] 4 23:48:18 Stasis dermatitis of lower limb due to chronic peripheral venous hypertension 309808133 Active 2023 Brittanie Rose MD Attn: Danielle elyse,[address] [facility], [place], [address], [place] - [facility] 4 23:48:45 Vitamin D deficiency 91940689 Active 2023 Uma Dotson MA null, [place] - [facility] 4 10:55:16 Problem Notes None recorded. Procedures Surgical History Date Name Laterality Status Provider Name and Address Organization Details Recorded Time Eye Surgery completed Tonya Palumbo MA [place] - [facility] 01/29/2024 09:48:40 Imaging Results Imaging Date Name Status LastModified by Organization Details LastModified Time 06/16/2024 US, echocardiogram completed MILENA Hinds [facility] [address], [place], [address], 06/18/2024 17:08:14 09/23/2024 US, doppler, venous completed [facility] [address], [place], [address], 09/24/2024 08:59:27 09/25/2024 XR, chest completed [address], [place], [address], 09/28/2024 17:31:49 Procedure Notes None recorded. Medical Equipment None Reported. Allergies No known drug allergies Medications Name Sig Start Date Stop Date Status Note LastModified by Organization Details LastModified Time metformin 500 mg tablet Take 1 tablet twice a day by oral route. 05/31 completed Not Available Not Available Not Available prednisone 10 mg tablet TAKE 1 TABLET ONCE DAILY IN THE MORNING active Not Available Not Available No t Available doxycyclin e hyclate 100 mg capsule TAKE 1 CAPSULE BY MOUTH TWICE A DAY WITH FOOD active Not Available Not Available No t Available meloxicam 15 mg tablet TAKE 1 TABLET BY MOUTH EVERY DAY 05/31 completed Not Available Not Available Not Available triamcinol one acetonide 0.1 % topical cream PLEASE SEE ATTACHED FOR DETAILED DIRECTIO NS active Not Available Not Available No t Available Trexall 5 mg tablet TAKE ONE TABLET ONCE WEEKLY UNTIL GONE. active Not Available Not Available No t Available lisinopril 10 mg tablet TAKE 1 TABLET BY MOUTH DAILY 2023 active Not Available Not Available Not Avai lable dapsone 25 mg tablet TAKE 1 TABLET BY MOUTH EVERY DAY WITH WATER active Not Available Not Available No t Available Baby Aspirin 81 mg chewable tablet Chew 1 tablet every day by oral route. active Not Available Not Available No t Available clobetasol 0.05 % topical ointment PLEASE SEE ATTACHED FOR DETAILED DIRECTIO NS active Not Available Not Available No t Available triamcinol one acetonide 0.1 % lotion 05/31 completed Not Available Not Available Not Available Vitamin D2 1,250 mcg (50,000 unit) capsule TAKE 1 CAPSULE BY MOUTH WEEKLY FOR 12 WEEKS 2023 active Not Available Not Available Not Avai lable doxycyclin e hyclate 100 mg tablet TAKE 1 TABLET BY MOUTH TWICE A DAY FOR 7 DAYS FOR DEMATITI S 05/31 completed Not Available Not Available Not Available rosuvastat in 5 mg tablet 02/04 completed change to 10mg daily Not Available Not Available Not Available rosuvastat in 10 mg tablet TAKE 1 TABLET BY MOUTH DAILY active Not Available Not Available No t Available BD Ultra-Fine Mini Pen Needle 31 gauge x 12/05 USE DIRECTED TO INJECT INSULIN active Not Available Not Available No t Available ammonium lactate active Not Available Not Available Not Available OneTouch Verio test strips USE DIRECTED TO CHECK BLOOD SUGAR DAILY 2023 active Not Available Not Available Not Avai lable Jardiance 10 mg tablet TAKE 1 TABLET BY MOUTH ONCE DAILY active Not Available Not Available No t Available Tresiba FlexTouch U-100 insulin 100 unit/mL (3 mL) subcutaneo us pen INJECT SUBCUTAN EOUSLY 20 UNITS DAILY 2023 active Not Available Not Available Not Avai lable OneTouch Verio Flex Meter active Not Available Not Available Not Available Fish Oil 1,000 mg (120 mg-180 mg) capsule Take by oral route. active Not Available Not Available No t Available OneTouch Delica Plus Lancet 30 gauge USE DIRECTED TO CHECK BLOOD SUGAR DAILY 2023 active Not Available Not Available Not Avai lable Vitals Date Recorded Body weight Body mass index (BMI) Body height Heart rate Oxygen saturation Oxygen saturation in Arterial blood by Pulse oximetry Systolic blood pressure Diastolic blood pressure Provider Name and Address Organization Details Last Updated DateTime 4 522935. 2 g 34.6 kg/m2 185.42 cm 60 /min 98 % 98 % 130 mm[Hg] 62 mm[Hg] Tonya Palumbo MA [facility] 4 09:51:53 Date Recorded Body height Body mass index (BMI) Body weight Heart rate Oxygen saturation Oxygen saturation in Arterial blood by Pulse oximetry Systolic blood pressure Diastolic blood pressure Provider Name and Address Organization Details Last Updated DateTime 4 185.42 cm 34.6 kg/m2 503352. 63 g 56 /min 97 % 97 % 128 mm[Hg] 68 mm[Hg] Marianne Escalante MA [facility] 4 09:49:31 Social History Question Answer Notes LastModified by Organizat ion Details LastModified Time Tobacco Smoking Status Former Smoker Tonya Palumbo MA null, [facility] 01/29/2024 09:45:40 Do You Have An Advance Directive? Yes Information not available 01/29/2024 What Is Your Level Of Alcohol Consumption? Moderate Information not available 01/29/2024 How Many Years Have You Consumed Alcohol? 50 Information not available 01/29/2024 Are You Blind Or Do You Have Difficulty Seeing? Yes Glasses Information not available 01/29/2024 What Is Your Level Of Caffeine Consumption? Moderate Tea Information not available 01/29/2024 In The 14 Days Before Symptom Onset, Have You Had Close Contact With A Laboratory-confi rmed COVID-19 While That Case Was Ill? No Information not available 01/29/2024 In The 14 Days Before Symptom Onset, Have You Had Close Contact With A Person Who Is Under Investigation For COVID-19 While That Person Was Ill? No Information not available 01/29/2024 Have You Been To An Area Known To Be High Risk For COVID-19? No Information not available 01/29/2024 Are You Currently Employed? No Information not available 01/29/2024 Are You Deaf Or Do You Have Serious Difficulty Hearing? Yes Right Ear Information not available 01/29/2024 What Type Of Diet Are You Following? REGULAR Information not available 01/29/2024 Are There Any Guns Present In Your Home? No Information not available 01/29/2024 What Was The Date Of Your Most Recent Tobacco Screening? 05/31/2024 crevisma Information not available 05/31/2024 What Is Your Current Pack Years? 10packyears Information not available 01/29/2024 What Is Your Relationship Status? Information not available 01/29/2024 Do You Use Your Seat Belt Or Car Seat Routinely? Yes Information not available 01/29/2024 Do You Have Smoke And Carbon Monoxide Detectors In Your Home? Yes Information not available 01/29/2024 How Much Tobacco Do You Smoke? 1 PPD Information not available 01/29/2024 Do You Feel Stressed (tense, Restless, Nervous, Or Anxious, Or Unable To Sleep At Night)? [id number] Not Comfortable In Bed Information not available 01/29/2024 Do You Use Any Illicit Or Recreational Drugs? No Information not available 01/29/2024 Do You Use Sunscreen Routinely? Yes Information not available 01/29/2024 Has Tobacco Cessation Counseling Been Provided? No Information not available 01/29/2024 How Many Years Have You Smoked Tobacco? 40 Information not available 01/29/2024 Do You Or Have You Ever Used Any Other Forms Of Tobacco Or Nicotine? No Information not available 01/29/2024 Sex: Male Functional Status Question Answer Note LastModified by Organization D etails LastModified Time Are you able to care for yourself? Yes Information n ot available 01/29/2024 What is your exercise level? None Information not available 01/29/2024 Mental Status None recorded. Family History Relationship Description Onset Age of this Age Resolved Age Notes LastModified by Organization Details LastModified Time Mother Diabetes mellitus mebyma Not available 2023 09:48:55 Mother Hypertensive disorder mebyma Not available 2023 09:49:04 Mother Hypercholest erolemia mebyma Not available 2023 09:49:12 Mother Kidney disease mebyma Not available 2023 09:49:18 Father Hypercholest erolemia mebyma Not available 2023 09:49:12 Medical History Condition Response Coronary Artery Disease N Other N Atrial Fibrillation N High Blood Pressure N Kidney or Bladder Problems N Thyroid Problems N GI Problems N Depression N COPD N Blood Clots N Skin Problems N Anemia N Heart Attack (AL) N Anxiety Disorder N Diabetes Y Muscle, Joint, or Bone Problems N Seizures/Epilepsy N Acid Reflux (GERD) N Cancer N Stroke N Asthma N Allergies N High Cholesterol Y Hepatitis N Liver Disease N Headaches N Heart Failure N Osteoporosis N Past Encounters Encounter ID Performer Location Encounter Start Date Encounter Closed Date Diagnosis/Indication Diagnosis SNOMED-CT Code Diagnosis ICD10 Code Diagnosis Note [id number] Brittanie Rose MD [facility] - Eddie Chong [address] [place] [address] 01/29/2024 09:34:21 01/29/2024 10:29:37 Type 2 diabetes mellitus 75491134 E11.9 Essential hypertension 53485321 I10 Hyperlipidemia 74313546 E78.5 Contact dermatitis 78648 004 L25.9 Stasis nidia matitis of lower limb due to chronic peripheral venous hypertension 530746437 I87.766 [id number] Brittanie Rose MD [facility] Chong [address] [place] [address] 05/31/2024 09:37:39 05/31/2024 10:38:16 Body mass index 30+ - obesity 174778431 Z68.34 34.6 BMI Essential hypertension 32064936 I10 Screening for malignant neoplasm of prostate 352070302 Z12.5 Type 2 agustin betes mellitus 73154795 E11.9 Systolic murmur 16119221 R01.1 Screening for malignant neoplasm of colon 633672509 Z12.11 Long-term drug therapy 268676311 Z79.899 Overweight 422938879 E66 .3 Health Concerns Section Related Observation LastModified by Organization Detai ls LastModified Time None Recorded Concern Status LastModified by Organization Details LastModified Time None Recorded Advance Directives Directive Y: Payers Encounter Date Sequence Insurance Name Policy Number Policy Hyatt Covered Member ID Hyatt Member ID Guarantor Name 01/29/2024 1 [facility] (MEDICARE REPLACEMENT/A DVANTAGE - HMO) [id number] Zeeshan Flores [id number] Zeeshan Flores 05/31/2024 1 [facility] (MEDICARE REPLACEMENT/A DVANTAGE - HMO) [id number] Zeeshan Flores [id number] Zeeshan Flores Notes Date Note Type Note Provider Name and Address Organization Details Recorded Time 01/29/2024 text/html 73-year-old with hypertension diabetes hyperlipidemia stasis dermatitis of the lower extremities sugars been doing okay has been trying to follow a low-fat diet arthritis has been doing okay stasis dermatitis is flared Brittanie Rose MD Attn: [address] [place], [address], [facility] 02/01/2024 23:51:06 05/31/2024 text/html 73-year-old with hypertension diabetes hyperlipidemia stasis dermatitis of the lower extremities sugars been doing okay has been trying to follow a low-fat diet arthritis has been doing okay stasis dermatitis is flared. He quit taking metformin and meloxicam Brittanie Rose MD Attn: [address] [facility], [place], [address], [facility] 06/20/2024 14:10:20
--- OUTSIDE RECORDS SUMMARY | 2024-09-29 05:53 | XMS_ITS | Data Portability ---
Author Organization [place] [employer], Main Office Address [address] [place] [address] Care Team Providers Care Greige Goods Marker Name Role Phone BRITTANIE ROSE Primary Care Provider [phone] BRITTANIE ROSE Referring Provider [phone] Assessment Encounter Date Assessment Date Assessment LastModified by Organization Details LastModified Time 01/20/2023 01/20/2023 Blood work reviewed goals for LDL blood pressure and A1c have been discussed. ABIs for his leg symptoms follow-up me in 4 months all questions have been answered I have asked him to seriously consider a daily shot of long-acting insulin [email or web address] Not available 01/26/2023 13:33:45 06/02/2023 06/02/2023 Continue current therapy targets for weight LDL blood pressure and A1c have been discussed regular exercise healthy diet follow-up 4 months [email or web address] Not available 06/02/2023 21:25:33 06/16/2023 06/16/2023 73-year-old male presenting for evaluation of his left knee. He reports pain for over 2 years, getting progressively worse. Pain is located on primarily the inside aspect of the knee. He has been taking Aleve and ibuprofen. He denies previous injury. He has not tried any other treatments. He does have a history of diabetes, controlled with medication. Review of systems per patient questionnaire Physical exam: He does have venous stasis changes on his bilateral calves. 2+ effusion. Tenderness palpation medial joint line. Range of motion 0-130, with crepitus. He has varus alignment, antalgic gait favoring left side. For his knee arthritis, we will begin with conservative management with meloxicam, physical therapy, and a medial machine pecan gatherer brace. Orders for those were given to him. We will see him back in 2-3 months for recheck. He may call with any questions concerns prior to then. [email or web address] Not available 06/16/2023 12:52:01 09/29/2023 09/29/2023 Will try to get Ozempic A1c 8.7 Obesity Other goals of therapy discussed All questions have been answered Follow-up 4 months [email or web address] Not available 09/29/2023 14:02:38 Plan of Treatment Reminders Order Date Submit Date Provider Last Modified By Organization Details Last Modified Time Details Appointments None recorded. Lab None recorded. Referral physical therapist referral - Please contact pt to schedule for L knee and provide with a home exercise program. Thanks 2022 023 [email or web address] [facility], [address] [place], [address], Ph [phone] 23:53:59 Procedures None recorded. Surgeries None recorded. Imaging XR, knee, 3 view 2022 023 [email or web address] [facility], [address] [place], [address], 3 23:53:59 Medication Orders Mobic 15 mg tablet 2022 023 [email or web address] [facility] [id number], [address], 3 23:53:59 Ozempic 0.25 mg or 0.5 mg (2 mg/1.5 mL) subcutaneou s pen injector 2023 024 [email or web address] [facility] [address], [address], 4 13:10:59 Patient TargetsNo targets recorded. Patient Instructions Encounter Date Encounter Id Patient Instructions Last Modified By Organization Details Last Modified Time 01/20/2023 [id number] (KRISSY) ankle brachial index* MILENA Not available 06/02/2023 15:49:37 Reason for Referral Physical Therapist Referral for Pain of left knee joint L knee Please contact pt to schedule for L knee and provide with a home exercise program. Thanks Referring Physician: Elmo Quispe, Orthopedic Surgery, Encounter Date: 06/16/2023 Results Created Date Observation Date Name Description Value Unit Range Abnormal Flag Note LastModifiedBy Organization Detail LastModifiedTime 01/04/2001/03/2023 LIPID PANEL cholesterol 197 mg/dL 140-19 9 NIH POOL NSUS RECOM MENDA TION FOR KARI STERO L: ADULT CHILD LOW RISK: <200 <170 BORDE RLINE : <200- 239 ----- HIGH RISK: >240 >200 Not Available [facility] (Lab) [address] [place], [address], 01/03/2023 12:59:33 01/04/20 23 01/03/2023 LIPID PANEL triglyceride s 222 mg/dL 0-150 high NIH POOL NSUS REPOR T RECOM MENDA TION FOR TRIGL YCERI RACHAEL: ADULT CHILD LOW RISK: <150 ----- BODER LINE: 150-1 99 ----- HIGH RISK: >200 ----- Not Available [facility] (Lab) [address] [place], [address], 01/03/2023 12:59:33 01/04/20 23 01/03/2023 LIPID PANEL HDL cholesterol 30 mg/dL 40- low Not Available [facility] (Lab) [address] [place], [address], 01/03/2023 12:59:33 01/04/20 23 01/03/2023 LIPID PANEL LDL cholesterol, calculated 123 mg/dL 0-130 NIH POOL NSUS REPOR T RECOM MENDA TIONS FOR LDL: ADULT CHILD LOW RISK <130 <110 (OPTI MAL LDL) <100 ----- BORDE RLINE : 130-1 59 ----- HIGH RISK: >160 >130 A TRIGL YCERI DE RESUL T >400 INVAL IDATE S THE CALCU LATIO N FOR LDL FRACT IONAT ION - THE LDL RESUL T WILL NOT BE REPOR MOOSE. Not Available [facility] (Lab) [address] [place], [address], 01/03/2023 12:59:33 01/04/20 23 01/03/2023 COMPR EHENS JOSUÉ METAB OLIC PANEL sodium 138 mmol/ L 137-14 5 Not Available [facility] (Lab) [address] [place], [address], 01/03/2023 12:59:43 01/04/20 23 01/03/2023 COMPR EHENS JOSUÉ METAB OLIC PANEL potassium 4.4 mmol/ L 3.5-5. 1 Not Available [facility] (Lab) [address] [place], [address], 01/03/2023 12:59:43 01/04/20 23 01/03/2023 COMPR EHENS JOSUÉ METAB OLIC PANEL chloride 104 mmol/ L 98-107 Not Available [facility] (Lab) [address] [place], [address], 01/03/2023 12:59:43 01/04/20 23 01/03/2023 COMPR EHENS JOSUÉ METAB OLIC PANEL carbon dioxide 23 mmol/ L 22-30 Not Available [facility] (Lab) [address] [facility] [place], [address], 01/03/2023 12:59:43 01/04/20 23 01/03/2023 COMPR EHENS JOSUÉ METAB OLIC PANEL anion gap 15.4 mmol/ L 14-22 Not Available [facility] (Lab) [address] [place], [address], 01/03/2023 12:59:43 01/04/20 23 01/03/2023 COMPR EHENS JOSUÉ METAB OLIC PANEL glucose 173 mg/dL 70-99 high Not Available [facility] (Lab) [address] [facility] [place], [address], 01/03/2023 12:59:43 01/04/20 23 01/03/2023 COMPR EHENS JOSUÉ METAB OLIC PANEL BUN 15 mg/dL 8-19 Not Available [facility] (Lab) [address] [place], [address], 01/03/2023 12:59:43 01/04/20 23 01/03/2023 COMPR EHENS JOSUÉ METAB OLIC PANEL creatinine 0.59 mg/dL 0.66-1 .25 low Not Available [facility] (Lab) [address] [place], [address], 01/03/2023 12:59:43 01/04/20 23 01/03/2023 COMPR EHENS JOSUÉ METAB OLIC PANEL GFR >60 Refer ence Range : [place] GFR Healt hy Adult : >60 mL/mi n/1.7 3 m2 Chron ic Kidne y Disea se: 15-60 mL/mi n/1.7 3 m2 Kidne y Failu re: <15/m L/min /1.73 m2 www.n iddk. nih.g ov The MDRD study equat ion has not been valid ated in child john <18 years of age; pregn ant women ; the elder ly >85 years of age; or in some racia l or ethni c subgr oups, such as me nics. Outsi de the valid ated doris eters , estim ated GFR is less accur ate, requi ring clini ramin judgm ent on a case- by-ca se basis . Clini ramin inter preta tion for other races and ages must be made by the clini rolanda. The MDRD study equat ion has not been valid ated for the evalu ation of serum creat inine relat ed to nutri roxana l statu s or medic ation usage . For perso ns <18 years of age, a pedia tric GFR calcu lator is avail able on the [facility] websi te: https ://kasi rodgers.o adriane/pr ofess ional s/kdo qi/gf r_cal culat or Not Available [facility] (Lab) [address] [place], [address], 01/03/2023 12:59:43 01/04/20 23 01/03/2023 COMPR EHENS JOSUÉ METAB OLIC PANEL alkaline phosphatase 69 U/L 38-126 Not Available [facility] (Lab) [address] [place], [address], 01/03/2023 12:59:43 01/04/20 23 01/03/2023 COMPR EHENS JOSUÉ METAB OLIC PANEL alanine aminotransfe rase 24 U/L 0-50 Not Available [facility] (Lab) [address] [place], [address], 01/03/2023 12:59:43 01/04/20 23 01/03/2023 COMPR EHENS JOSUÉ METAB OLIC PANEL aspartate aminotransfe rase 24 U/L 15-46 Not Available [facility] (Lab) [address] [place], [address], 01/03/2023 12:59:43 01/04/20 23 01/03/2023 COMPR EHENS JOSUÉ METAB OLIC PANEL bilirubin, total 2.00 mg/dL 0.20-1 .30 high Not Available [facility] (Lab) [address] [place], [address], 01/03/2023 12:59:43 01/04/20 23 01/03/2023 COMPR EHENS JOSUÉ METAB OLIC PANEL calcium 8.9 mg/dL 8.4-10 .2 Not Available [facility] (Lab) [address] [place], [address], 01/03/2023 12:59:43 01/04/20 23 01/03/2023 COMPR EHENS JOSUÉ METAB OLIC PANEL total protein 7.1 g/dL 6.3-8. 2 Not Available [facility] (Lab) [address] [place], [address], 01/03/2023 12:59:43 01/04/20 23 01/03/2023 COMPR EHENS JOSUÉ METAB OLIC PANEL albumin 4.2 g/dL 3.0-4. 4 Not Available [facility] (Lab) [address] [place], [address], 01/03/2023 12:59:43 01/04/20 23 01/03/2023 COMPR EHENS JOSUÉ METAB OLIC PANEL globulin 2.9 g/dL 2.6-4. 2 Not Available [facility] (Lab) [address] [place], [address], 01/03/2023 12:59:43 01/04/20 23 01/03/2023 COMPR EHENS JOSUÉ METAB OLIC PANEL A/G ratio 1.4 ratio 1.0-2. 0 Not Available [facility] (Lab) [address] [place], [address], 01/03/2023 12:59:43 01/04/20 23 01/03/2023 HEMOG LOBIN A1C HA1C 8.3 % 4.0-6. 0 high Diabe sofia Scree rory Crite jose: <5.7% Consi stent with absen ce of diabe sofia 5.7-6 .4% Consi stent with incre ased risk for diabe sofia (pred iabet es) >OR=6 .5% Consi stent with diabe sofia REFER ENCE: Diabe sofia Care 2016, 39(Fall ppl.1 ):s13 -s22 Not Available [facility] (Lab) [address] [place], [address], 01/03/2023 17:54:29 09/08/20 23 09/08/2023 CBC/C OMPLE TE BLD COUNT W/DIF F white blood cells 6.6 x10'3 /uL 4.2-10 .8 Not Available [facility] (Lab) [address] [place], [address], 09/08/2023 11:47:10 09/08/20 23 09/08/2023 CBC/C OMPLE TE BLD COUNT W/DIF F red blood cells 4.41 x10'6 /uL 4.10-5 .80 Not Available [facility] (Lab) [address] [place], [address], 09/08/2023 11:47:10 09/08/20 23 09/08/2023 CBC/C OMPLE TE BLD COUNT W/DIF F hemoglobin 13.2 g/dL 13.2-1 7.0 Not Available [facility] (Lab) [address] [facility] [place], [address], 09/08/2023 11:47:10 09/08/2009/08/2023 CBC/C OMPLE TE BLD COUNT W/DIF F hematocrit 42.4 % 39.3-5 0.0 Not Available [facility] (Lab) [address] [place], [address], 09/08/2023 11:47:10 09/08/20 23 09/08/2023 CBC/C OMPLE TE BLD COUNT W/DIF F mean red cell volume 96.1 fL 80.0-9 7.0 Not Available [facility] (Lab) [address] [place], [address], 09/08/2023 11:47:10 09/08/2009/08/2023 CBC/C OMPLE TE BLD COUNT W/DIF F mean red cell hemoglobin 29.9 pg 27.0-3 3.0 Not Available [facility] (Lab) [address] [place], [address], 09/08/2023 11:47:10 09/08/20 23 09/08/2023 CBC/C OMPLE TE BLD COUNT W/DIF F mean RBC HGB concentratio n 31.1 g/dL 31.0-3 6.0 Not Available [facility] (Lab) [address] [place], [address], 09/08/2023 11:47:10 09/08/20 23 09/08/2023 CBC/C OMPLE TE BLD COUNT W/DIF F red cell distribution width 15.0 % 11.8-1 5.5 Not Available [facility] (Lab) [address] [place], [address], 09/08/2023 11:47:10 09/08/20 23 09/08/2023 CBC/C OMPLE TE BLD COUNT W/DIF F platelets 268 x10'3 /uL 150-40 0 Not Available [facility] (Lab) [address] [place], [address], 09/08/2023 11:47:10 09/08/2009/08/2023 CBC/C OMPLE TE BLD COUNT W/DIF F mean platelet volume 9.1 fL 9.0-12 .4 Not Available [facility] (Lab) [address] [place], [address], 09/08/2023 11:47:10 09/08/20 23 09/08/2023 CBC/C OMPLE TE BLD COUNT W/DIF F neutrophils 70.5 % 39.0-7 2.0 Not Available [facility] (Lab) [address] [place], [address], 09/08/2023 11:47:10 09/08/20 23 09/08/2023 CBC/C OMPLE TE BLD COUNT W/DIF F lymphocytes 17.0 % 16.0-4 7.0 Not Available [facility] (Lab) [address] [place], [address], 09/08/2023 11:47:10 09/08/20 23 09/08/2023 CBC/C OMPLE TE BLD COUNT W/DIF F monocytes 9.2 % 5.0-12 .0 Not Available [facility] (Lab) [address] [place], [address], 09/08/2023 11:47:10 09/08/20 23 09/08/2023 CBC/C OMPLE TE BLD COUNT W/DIF F eosinophils 2.0 % 1.0-7. 0 Not Available [facility] (Lab) [address] [place], [address], 09/08/2023 11:47:10 09/08/2009/08/2023 CBC/C OMPLE TE BLD COUNT W/DIF F basophils 0.5 % 0.0-2. 0 Not Available [facility] (Lab) [address] [place], [address], 09/08/2023 11:47:10 09/08/2009/08/2023 CBC/C OMPLE TE BLD COUNT W/DIF F immature granulocytes 0.8 % 0.00-0 .50 high Not Available [facility] (Lab) [address] [place], [address], 09/08/2023 11:47:10 09/08/20 23 09/08/2023 CBC/C OMPLE TE BLD COUNT W/DIF F neutrophils, absolute count 4.69 x10'3 /uL 1.5-8. 0 Not Available [facility] (Lab) [address] [place], [address], 09/08/2023 11:47:10 09/08/20 23 09/08/2023 CBC/C OMPLE TE BLD COUNT W/DIF F lymphocytes, absolute count 1.13 x10'3 /uL 1.07-3 .43 Not Available [facility] (Lab) [address] [place], [address], 09/08/2023 11:47:10 09/08/20 23 09/08/2023 CBC/C OMPLE TE BLD COUNT W/DIF F monocytes, absolute count 0.61 x10'3 /uL 0.29-0 .99 Not Available [facility] (Lab) [address] [place], [address], 09/08/2023 11:47:10 09/08/20 23 09/08/2023 CBC/C OMPLE TE BLD COUNT W/DIF F eosinophils, absolute count 0.13 x10'3 /uL 0.02-0 .53 Not Available [facility] (Lab) [address] [place], [address], 09/08/2023 11:47:10 09/08/20 23 09/08/2023 CBC/C OMPLE TE BLD COUNT W/DIF F basophils, absolute count 0.03 x10'3 /uL 0.01-0 .08 Not Available [facility] (Lab) [address] [place], [address], 09/08/2023 11:47:10 09/08/20 23 09/08/2023 CBC/C OMPLE TE BLD COUNT W/DIF F immature granulocytes ,absolute 0.05 x10'3 /uL 0.00-0 .05 Not Available [facility] (Lab) [address] [place], [address], 09/08/2023 11:47:10 09/08/20 23 09/08/2023 CBC/C OMPLE TE BLD COUNT W/DIF F nucleated red blood cells 0.0 % -0 Not Available [facility] (Lab) [address] [place], [address], 09/08/2023 11:47:10 09/08/20 23 09/08/2023 CBC/C OMPLE TE BLD COUNT W/DIF F NRBC# 0.00 x10'3 /uL Not Available [facility] (Lab) [address] [place], [address], 09/08/2023 11:47:10 09/08/20 23 09/08/2023 LIPID PANEL cholesterol 188 mg/dL 140-19 9 NIH POOL NSUS RECOM MENDA TION FOR KARI STERO L: ADULT CHILD LOW RISK: <200 <170 BORDE RLINE : <200- 239 ----- HIGH RISK: >240 >200 Not Available [facility] (Lab) [address] [place], [address], 09/08/2023 14:28:43 09/08/20 23 09/08/2023 LIPID PANEL triglyceride s 167 mg/dL 0-150 high NIH POOL NSUS REPOR T RECOM MENDA TION FOR TRIGL YCERI RACHAEL: ADULT CHILD LOW RISK: <150 ----- BODER LINE: 150-1 99 ----- HIGH RISK: >200 ----- Not Available [facility] (Lab) [address] [place], [address], 09/08/2023 14:28:43 09/08/20 23 09/08/2023 LIPID PANEL HDL cholesterol 32 mg/dL 40- low Not Available [facility] (Lab) [address] [place], [address], 09/08/2023 14:28:43 09/08/20 23 09/08/2023 LIPID PANEL LDL cholesterol, calculated 123 mg/dL 0-130 NIH POOL NSUS REPOR T RECOM MENDA TIONS FOR LDL: ADULT CHILD LOW RISK <130 <110 (OPTI MAL LDL) <100 ----- BORDE RLINE : 130-1 59 ----- HIGH RISK: >160 >130 A TRIGL YCERI DE RESUL T >400 INVAL IDATE S THE CALCU LATIO N FOR LDL FRACT IONAT ION - THE LDL RESUL T WILL NOT BE REPOR MOOSE. Not Available [facility] (Lab) [address] [place], [address], 09/08/2023 14:28:43 09/08/20 23 09/08/2023 COMPR EHENS JOSUÉ METAB OLIC PANEL sodium 139 mmol/ L 137-14 5 Not Available [facility] (Lab) [address] [place], [address], 09/08/2023 14:28:46 09/08/20 23 09/08/2023 COMPR EHENS JOSUÉ METAB OLIC PANEL potassium 4.6 mmol/ L 3.5-5. 1 Not Available [facility] (Lab) [address] [place], [address], 09/08/2023 14:28:46 09/08/20 23 09/08/2023 COMPR EHENS JOSUÉ METAB OLIC PANEL chloride 101 mmol/ L 98-107 Not Available [facility] (Lab) [address] [place], [address], 09/08/2023 14:28:46 09/08/20 23 09/08/2023 COMPR EHENS JOSUÉ METAB OLIC PANEL carbon dioxide 24 mmol/ L 22-30 Not Available [facility] (Lab) [address] [place], [address], 09/08/2023 14:28:46 09/08/20 23 09/08/2023 COMPR EHENS JOSUÉ METAB OLIC PANEL anion gap 18.6 mmol/ L 14-22 Not Available [facility] (Lab) [address] [place], [address], 09/08/2023 14:28:46 09/08/20 23 09/08/2023 COMPR EHENS JOSUÉ METAB OLIC PANEL glucose 196 mg/dL 70-99 high Not Available [facility] (Lab) [address] [place], [address], 09/08/2023 14:28:46 09/08/20 23 09/08/2023 COMPR EHENS JOSUÉ METAB OLIC PANEL BUN 14 mg/dL 8-19 Not Available [facility] (Lab) [address] [place], [address], 09/08/2023 14:28:46 09/08/20 23 09/08/2023 COMPR EHENS JOSUÉ METAB OLIC PANEL creatinine 0.60 mg/dL 0.66-1 .25 low Not Available [facility] (Lab) [address] [place], [address], 09/08/2023 14:28:46 09/08/20 23 09/08/2023 COMPR EHENS JOSUÉ METAB OLIC PANEL GFR >60 Refer ence Range : [place] GFR Healt hy Adult : >60 mL/mi n/1.7 3 m2 Chron ic Kidne y Disea se: 15-60 mL/mi n/1.7 3 m2 Kidne y Failu re: <15/m L/min /1.73 m2 www.n iddk. nih.g ov The MDRD study equat ion has not been valid ated in child john <18 years of age; pregn ant women ; the elder ly >85 years of age; or in some racia l or ethni c subgr oups, such as Theodore nics. Outsi de the valid ated doris eters , estim ated GFR is less accur ate, requi ring clini ramin judgm ent on a case- by-ca se basis . Clini ramin inter preta tion for other races and ages must be made by the clini rolanda. The MDRD study equat ion has not been valid ated for the evalu ation of serum creat inine relat ed to nutri roxana l statu s or medic ation usage . For perso ns <18 years of age, a pedia tric GFR calcu lator is avail able on the [facility] websi te: https ://kasi rodgers.chon rg/pr ofess ional s/kdo qi/gf r_cal culat or Not Available [facility] (Lab) [address] [place], [address], 09/08/2023 14:28:46 09/08/20 23 09/08/2023 COMPR EHENS JOSUÉ METAB OLIC PANEL alkaline phosphatase 68 U/L 38-126 Not Available [facility] (Lab) [address] [place], [address], 09/08/2023 14:28:46 09/08/20 23 09/08/2023 COMPR EHENS JOSUÉ METAB OLIC PANEL alanine aminotransfe rase 17 U/L 0-50 Not Available [facility] (Lab) [address] [place], [address], 09/08/2023 14:28:46 09/08/20 23 09/08/2023 COMPR EHENS JOSUÉ METAB OLIC PANEL aspartate aminotransfe rase 19 U/L 15-46 Not Available [facility] (Lab) [address] [place], [address], 09/08/2023 14:28:46 09/08/20 23 09/08/2023 COMPR EHENS JOSUÉ METAB OLIC PANEL bilirubin, total 1.60 mg/dL 0.20-1 .30 high Not Available [facility] (Lab) [address] [place], [address], 09/08/2023 14:28:46 09/08/20 23 09/08/2023 COMPR EHENS JOSUÉ METAB OLIC PANEL calcium 9.5 mg/dL 8.4-10 .2 Not Available [facility] (Lab) [address] [place], [address], 09/08/2023 14:28:46 09/08/20 23 09/08/2023 COMPR EHENS JOSUÉ METAB OLIC PANEL total protein 7.6 g/dL 6.3-8. 2 Not Available [facility] (Lab) [address] [place], [address], 09/08/2023 14:28:46 09/08/20 23 09/08/2023 COMPR EHENS JOSUÉ METAB OLIC PANEL albumin 4.3 g/dL 3.0-4. 4 Not Available [facility] (Lab) [address] [place], [address], 09/08/2023 14:28:46 09/08/20 23 09/08/2023 COMPR EHENS JOSUÉ METAB OLIC PANEL globulin 3.3 g/dL 2.6-4. 2 Not Available [facility] (Lab) [address] [place], [address], 09/08/2023 14:28:46 09/08/20 23 09/08/2023 COMPR EHENS JOSUÉ METAB OLIC PANEL A/G ratio 1.3 ratio 1.0-2. 0 Not Available [facility] (Lab) [address] [place], [address], 09/08/2023 14:28:46 09/08/20 23 09/08/2023 PSA SCREE N PSA medicare screen 2.62 NG/mL 0.00-4 .00 Not Available [facility] (Lab) [address] [place], [address], 09/08/2023 15:07:55 09/08/20 23 09/08/2023 HEMOG LOBIN A1C HA1C 8.7 % 4.0-6. 0 high Diabe sofia Scree rory Crite jose: <5.7% Consi stent with absen ce of diabe sofia 5.7-6 .4% Consi stent with incre ased risk for diabe sofia (pred iabet es) >OR=6 .5% Consi stent with diabe sofia REFER ENCE: Diabe sofia Care 2016, 39(Fall ppl.1 ):s13 -s22 Not Available [facility] (Lab) [address] [place], [address], 09/08/2023 20:37:22 06/02/20 23 02/07/2023 (KRISSY) ankle brach ial index * No observ ation record ed. cyahl [facility] [address] [place], [address], 06/02/2023 15:49:38 06/16/20 23 XR, knee, 3 view No observ ation record ed. [email or web address] [facility] [address] [facility], [place], [address], 06/16/2023 10:20:38 Result Notes None recorded. Problems Name Problem SNOMED Code Status Onset Date Resolution Date Notes Provider Name and Address Organization Details Recorded Time Intermitt ent claudicat ion 56985484 Active 2022 Not Available [facility] 3 11:51:45 Pain of left knee joint 95524089141 4107 Active 2022 Uma Dotson RMA null, [facility] 3 17:32:46 Type 2 diabetes mellitus 90189612 Active 2023 Uma Dotson RMA null, [place] - [facility] 4 12:26:54 Open wound of lower leg 125761044 Active 2021 Not Available [facility] 3 11:51:44 Dry skin 50081648 Active 2021 Not Available [facility] 3 11:51:44 Periphera l venous insuffici ency 27032758 Active Not Available [facility] 3 11:51:44 Pure hyperchol esterolem ia 330852245 Active Not Available [facility] 3 11:51:44 Low back pain 809682307 Completed Not Available [facility] 3 03:22:29 Type 2 diabetes mellitus without complicat ion 453332780 Active Not Available [facility] 3 11:51:45 Obesity 234205383 Active Not Available [facility] 3 11:51:45 Essential hypertens ion 38697560 Active Not Available [facility] 3 11:51:45 Pain in limb 28723347 Active Not Available [facility] 3 11:51:45 Problem Notes None recorded. Procedures Surgical History Date Name Laterality Status Provider Name and Address Organization Details Recorded Time 1 Oncology colorectal scr completed Not Available [facility] 11/20/2022 03:14:37 0 Cataract Surgery completed Not Available [facility] 11/20/2022 03:14:37 Imaging Results Imaging Date Name Status [facility] Details LastModified Time 02/07/2023 (KRISSY) ankle brachial index* completed [facility] [address], [place], [address], 06/02/2023 15:49:38 06/16/2023 XR, knee, 3 view completed [facility] [address], [place], [address], 06/16/2023 10:20:38 Procedure Notes None recorded. Medical Equipment None Reported. Allergies Allergen ID Allergen Name Allergen Category Reaction Reaction Severity Criticality Documentation Date Start Date Code Code System Note Provider Name and Address Organization Details Recorded Time 6041 glimepiri de medicatio n Not available Not available Not available 11/20/2022 23466 RxNorm kidne y pain Not Available [facility] 03:31:58 Medications Name Sig Start Date Stop Date Status Note LastModified by Organization Details LastModified Time cyclobenz aprine 10 mg tablet Take 1 tablet QHS PRN 05/29 completed Not Available Not Available Not Available metformin 500 mg tablet TAKE 1 TABLET BY MOUTH TWICE DAILY 2023 active Not Available Not Available Not Avai lable ammonium lactate 12 % lotion Apply to both legs daily 06/16 completed Not Available Not Available Not Available ofloxacin 0.3 % eye drops 02/06 completed Not Available Not Available Not Available tizanidin e 4 mg tablet Take 1 tablet every day by oral route at bedtime. active Not Available Not Available No t Available meloxicam 15 mg tablet TAKE 1 TABLET BY MOUTH EVERY DAY active Not Available Not Available No t Available glipizide 10 mg tablet TAKE 1 TABLET DAILY 10/04 completed Not Available Not Available Not Available aspirin 81 mg tablet,de layed release Take 1 tablet every day by oral route. 2013 active Not Available Not Available Not Avai lable glimepiri de 1 mg tablet Take 1 tablet every day by oral route. 01/23 completed Not Available Not Available Not Available ketorolac 0.5 % eye drops 02/06 completed Not Available Not Available Not Available prednisol one acetate 1 % eye drops,elaine pension 02/06 completed Not Available Not Available Not Available metformin 1,000 mg tablet Take 1 tablet twice a day by oral route. 05/28 completed Not Available Not Available Not Available lisinopri l 10 mg tablet TAKE 1 TABLET BY MOUTH DAILY 2022 active Not Available Not Available Not Avai lable diclofena c sodium 75 mg tablet,de layed release TK 1 T PO BID 10/01 completed Not Available Not Available Not Available clobetaso l 0.05 % scalp solution apply to affected area daily as directed active Not Available Not Available No t Available ezetimibe 10 mg tablet TAKE 1 TABLET BY MOUTH DAILY 06/02 completed changed to Rosuvast atin 5mg Not Available Not Available Not Available rosuvasta tin 5 mg tablet TAKE 1 TABLET BY MOUTH DAILY active Not Available Not Available No t Available rosuvasta tin 10 mg tablet take 1 tablet on Mondays and Fridays completed Not Available Not Available Not Available rosuvasta tin 20 mg tablet take one tablet by mouth daily 10/01 completed Not Available Not Available Not Available Fish Oil 2020 active Not Available Not Available Not Avai lable multivita min 2020 active Not Available Not Available Not Avai lable glucosami ne 2KCl-msm- chondroit 12/25 completed Not Available Not Available Not Available Prevnar 13 (PF) 0.5 mL intramusc ular syringe 08/24 completed Not Available Not Available Not Available Osteo Bi-Flex 2021 active Not Available Not Available Not Avai lable Bydureon 2 mg subcutane ous extended release suspensio n INJECT 2 MG UNDER THE SKIN EVERY WEEK 05/29 completed Not Available Not Available Not Available Invokana 100 mg tablet 1/2 tab daily 09/24 completed Not Available Not Available Not Available Victoza 3-Brian 0.6 mg/0.1 mL (18 mg/3 mL) subcutane ous pen injector 05/31 completed Not Available Not Available Not Available Farxiga 10 mg tablet TAKE 1 TABLET DAILY active Not Available Not Available No t Available Farxiga 5 mg tablet TAKE 1 TABLET PO DAILY 03/11 completed Not Available Not Available Not Available Jardiance 10 mg tablet TAKE 1 TABLET BY MOUTH ONCE DAILY active Not Available Not Available No t Available Jardiance 25 mg tablet TAKE 1 TABLET BY MOUTH DAILY 09/10 completed Not Available Not Available Not Available Fluzone High-Dose (PF) 180 mcg/0.5 mL intramusc ular syringe ADM 0.5ML IM UTD 10/02 completed Not Available Not Available Not Available Ozempic 0.25 mg or 0.5 mg (2 mg/1.5 mL) subcutane ous pen injector inject 0.25mg weekly for 4wks then go to 0.5mg weekly for 4wks 2023 active Not Available Not Available Not Avai lable Fluad 2017- 65yr up(PF)45 mcg(15 mcgx3)/0. 5 mL intramusc ular syringe 08/24 completed Not Available Not Available Not Available Fluzone High-Dose (PF) 180 mcg/0.5 mL intramusc ular syringe active Not Available Not Available Not Available Fluad Quad (65yr up)(PF) 60 mcg (15 mcg x 4)/0.5mL IM syringe PHARMACI ST ADMINIST ERED IMMUNIZA TION ADMINIST ERED AT TIME OF DISPENSI NG active Not Available Not Available No t Available Vitals Date Recorded Body height Body mass index (BMI) Body weight Body temperature Heart rate Systolic blood pressure Diastolic blood pressure Provider Name and Address Organization Details Last Updated DateTime 3 187.96 cm 34.9 kg/m2 433899. 12 g 97.9 [degF] 61 /min 122 mm[Hg] 70 mm[Hg] [facility] [place] [employer] [facility] 3 10:02:01 Date Recorded Body height Body mass index (BMI) Body weight Body temperature Heart rate Systolic blood pressure Diastolic blood pressure Provider Name and Address Organization Details Last Updated DateTime 3 187.96 cm 34.7 kg/m2 167594. 94 g 97.8 [degF] 75 /min 136 mm[Hg] 70 mm[Hg] [facility] [place] [employer] [facility] 3 10:22:05 Date Recorded Body height Body mass index (BMI) Body weight Provider Name and Address Organization Details Last Updated DateTime 06/16/2023 187.96 cm 34.7 kg/m2 186625.94 g Jerri Cruz [facility] [employer] [facility] 06/16/2023 10:18:34 Date Recorded Body height Body mass index (BMI) Body weight Body temperature Heart rate Systolic blood pressure Diastolic blood pressure Provider Name and Address Organization Details Last Updated DateTime 4 187.96 cm 35.4 kg/m2 946397. 49 g 98.2 [degF] 78 /min 116 mm[Hg] 68 mm[Hg] Doreen Albert [facility] [employer] [facility] 4 11:58:32 Date Recorded Body mass index (BMI) Body height Heart rate Body temperature Body weight Systolic blood pressure Diastolic blood pressure Provider Name and Address Organization Details Last Updated DateTime 2 34.9 kg/m2 187.96 cm 68 /min 97.4 [degF] 097788. 12 g 132 mm[Hg] 64 mm[Hg] Not Available [facility] 03:16:53 Social History Question Answer Notes LastModified by Organization Details LastModified Time Tobacco Smoking Status Former Smoker quit 1979 Not Available [facility] 11/20/2022 03:01:29 Do You Have An Advance Directive? No MIGRATION.0301 [id number] Information not available 11/20/2022 What Is Your Level Of Alcohol Consumption? Moderate MIGRATION.0301 094624 Information not available 11/20/2022 Do You Wear A Helmet When Biking? No Does Not Bike MIGRATION.0301 226233 Information not available 11/20/2022 Are You Blind Or Do You Have Difficulty Seeing? No MIGRATION.0301 [id number] Information not available 11/20/2022 What Is Your Level Of Caffeine Consumption? Moderate MIGRATION.0301 022761 Information not available 11/20/2022 How Much Tobacco Do You Chew? None MIGRATION.0301 [id number] Information not available 11/20/2022 In The 14 Days Before Symptom Onset, Have You Had Close Contact With A Laboratory-conf irmed COVID-19 While That Case Was Ill? No MIGRATION.0301 [id number] Information not available 11/20/2022 In The 14 Days Before Symptom Onset, Have You Had Close Contact With A Person Who Is Under Investigation For COVID-19 While That Person Was Ill? No MIGRATION.0301 963191 Information not available 11/20/2022 Are You Deaf Or Do You Have Serious Difficulty Hearing? No MIGRATION.0301 773650 Information not available 11/20/2022 What Type Of Diet Are You Following? CARBOHYDRATE MIGRATION.0301 393096 Information not available 11/20/2022 Which Illicit Or Recreational Drugs Have You Used? None MIGRATION.0301 583575 Information not available 11/20/2022 Do You Or Have You Ever Used E-cigarettes Or Vape? Never Used Electronic Cigarettes MIGRATION.0301 871456 Information not available 11/20/2022 What Is The Highest Grade Or Level Of School You Have Completed Or The Highest Degree You Have Received? [id number] MIGRATION.0301 678417 Information not available 11/20/2022 What Is Your Occupation? Retired MIGRATION.0301 203239 Information not available 11/20/2022 Have There Been Any Changes To Your Family Or Social Situation? No MIGRATION.0301 983435 Information not available 11/20/2022 What Is The Fluoride Status Of Your Home? Unknown MIGRATION.0301 489481 Information not available 11/20/2022 When Did You Quit Smoking? 17+yearssincelastc igarette MIGRATION.0301 676153 Information not available 11/20/2022 Do You Use Insect Repellent Routinely? No MIGRATION.0301 959282 Information not available 11/20/2022 Where Do You Live? SingleLevelHouse With Basement MIGRATION.0301 972319 Information not available 11/20/2022 Do You Have A Medical Power Of Bench Scientist? No MIGRATION.0301 254336 Information not available 11/20/2022 What Was The Date Of Your Most Recent Tobacco Screening? 09/29/2023 [email or web address] Information not available 09/29/2023 Have You Ever Been Counseled For Unhealthy Alcohol Use? No MIGRATION.0301 244624 Information not available 11/20/2022 Do You Have Any Pets? Yes MIGRATION.0301 014234 Information not available 11/20/2022 What Is Your Relationship Status? MIGRATION.0301 892793 Information not available 11/20/2022 Do You Use Your Seat Belt Or Car Seat Routinely? Yes MIGRATION.0301 091890 Information not available 11/20/2022 Do You Have Smoke And Carbon Monoxide Detectors In Your Home? Yes MIGRATION.0301 506654 Information not available 11/20/2022 Are You Passively Exposed To Smoke? No MIGRATION.0301 372251 Information not available 11/20/2022 Do You Or Have You Ever Used Smokeless Tobacco? Never Used Smokeless Tobacco MIGRATION.0301 016908 Information not available 11/20/2022 Are There Any Smokers In Your House? No MIGRATION.0301 056308 Information not available 11/20/2022 How Much Tobacco Do You Smoke? No MIGRATION.0301 792872 Information not available 11/20/2022 What Types Of Sporting Activities Do You Participate In? None MIGRATION.0301 627569 Information not available 11/20/2022 Do You Feel Stressed (tense, Restless, Nervous, Or Anxious, Or Unable To Sleep At Night)? [id number] MIGRATION.0301 481418 Information not available 11/20/2022 Do You Use Any Illicit Or Recreational Drugs? No MIGRATION.0301 806049 Information not available 11/20/2022 Do You Use Sunscreen Routinely? No MIGRATION.0301 124535 Information not available 11/20/2022 Has Tobacco Cessation Counseling Been Provided? No MIGRATION.0301 887079 Information not available 11/20/2022 Have You Recently Traveled Abroad? No MIGRATION.0301 271092 Information not available 11/20/2022 Do You Have Any Dietary Restrictions? No MIGRATION.0301 560038 Information not available 11/20/2022 Do You Or Have You Ever Used Any Other Forms Of Tobacco Or Nicotine? No MIGRATION.0301 557247 Information not available 11/20/2022 Sex: Male Functional Status Question Answer Note LastModified by Organizat ion Details LastModified Time Do you have difficulty walking or climbing stairs? No MIGRATION.[id number] 026 Information not available 11/20/2022 Do you have transportation difficulties? No MIGRATION.3015829 026 Information not available 11/20/2022 Are you able to walk? YESWOREST MIGRATION.8680868 026 Information not available 11/20/2022 Do you have difficulty doing errands alone? No MIGRATION.6096861 026 Information not available 11/20/2022 Are you able to care for yourself? Yes MIGRATION.6928159 026 Information not available 11/20/2022 Do you have difficulty dressing or bathing? No MIGRATION.6947533 026 Information not available 11/20/2022 What is your exercise level? Occasional MIGRATION.3147358 026 Information not available 11/20/2022 Mental Status Question Answer Note LastModified by Organizat ion Details LastModified Time Do you have difficulty concentrating, remembering or making decisions? No MIGRATION.[id number] 6 Information not available 11/20/2022 Family History Relationship Description Onset Age of this Age Resolved Age Notes LastModified by Organization Details LastModified Time Mother Diabetes mellitus MIGRATION.430 [id number] Not available 11/20/2022 03:14:40 Sister Diabetes mellitus MIGRATION.443 [id number] Not available 11/20/2022 03:14:40 Brother Pulmonary embolism MIGRATION.750 [id number] Not available 11/20/2022 03:14:40 Brother Malignant tumor of thyroid gland 65 MIGRATION.959 [id number] Not available 11/20/2022 03:14:40 Medical History Condition Response NERVE DISEASE N BLINDNESS N RHEUMATIC FEVER N KIDNEY STONES N BLADDER PROBLEMS N MRSA N OTHER # 1 N POLIO N LUNG DISEASE/DISORDER N COPD N RADIATION / CHEMOTHERAPY N Other # 2 N BLOOD DISEASES N SURGERY N EAR OR HEARING PROBLEMS N MUMPS N DEPRESSION (INCLUDING POST ) N BOWEL PROBLEMS N STROKE/TIA N ULCERS N BENIGN PROSTATIC HYPERPLASIA N MEASLES N MYOCARDIAL INFARCTION N OBESITY Y GERD/NAUSEA N ANEURYSM N URINARY/BLADDER/KIDNEY PROBLEMS N CORONARY ARTERY DISEASE (CAD) N ADDICTION CONCERNS N Impotence N ENDOMETRIOSIS N USE OF BLOOD THINNERS N SKIN PROBLEMS N GASTROINTESTINAL DISORDER N PERIPHERAL VASCULAR DISEASE Y MUSCLE,JOINT OR BONE PROBLEMS N GASTROINTESTINAL BLEEDING N BLOOD CLOTS N ASTHMA N CATARACTS N ERECTILE DYSFUNCTION N VARICOSITIES N GI PROBLEMS N Low Testosterone N INFERTILITY N AIDS/HIV N CHEMOTHERAPY / RADIATION N LIVER DISEASE N MALE HYPOGONADISM N HYPERTENSION N Deficiency N ANXIETY DISORDER N BLOOD TRANSFUSION N ANEMIA/BLOOD DISORDER N CHRONIC EAR INFECTIONS N BRONCHITIS N TUBERCULOSIS N GLAUCOMA N FOOT PROBLEM N DIVERTICULITIS N SLEEP APNEA N CHICKENPOX N INFECTIOUS DISEASE N PROSTATE N HEART ARRHYTHMIA N INSOMNIA N HIGH CHOLESTEROL / HYPERLIPIDEMIA Y EYE PROBLEMS Y HYPERTHYROIDISM N NEUROLOGICAL PROBLEMS N EDEMA N CHRONIC PAIN SYNDROME N HYPOTHYROIDISM N CAROTID BLOCKAGE N CONSTIPATION N BACK / NECK PROBLEMS N HAVE YOU BEEN HOSPITALIZED OR SEEN IN [facility] IN THE PAST YEAR ? N ATHEROSCLEROSIS N BREAST PROBLEMS N DIALYSIS N ECZEMA N OSTEOPOROSIS N ARTHRITIS N APPENDICITIS N DIABETES, TYPE Y BAD TEETH N ENT N HEARTBURN / REFLUX N AUTISM SPECTRUM DISORDER (ASD) N HEPATITIS / LIVER DISEASE N GOUT N SLEEP DISORDER N ALZHEIMER'S DISEASE N Brain Problems N DEMENTIA N HERPES N SEIZURES/EPILEPSY N HEADACHES/MIGRAINES N VASCULAR DISEASE N PACEMAKER N Blood Disorder N DIZZINESS N HEART DISEASE/HEART PROBLEMS N KIDNEY DISEASE N MULTIPLE SCLEROSIS N CANCER: SPECIFY N CARDIAC ARRHYTHMIA N ATRIAL FIBRILLATION N Gall Stones N PULMONARY EMBOLISM N AUTOIMMUNE DISEASE N Immunizations Vaccine Type Date Status Note Provider Nam e and Address Organization Details Recorded Time Influenza, high-dose, quadrivalent, PF 2 completed Not Available [facility] 02/21/2023 11:51:45 COVID-19, mRNA, LNP-S, PF, 30 mcg/0.3 mL dose 2 completed Not Available [facility] 02/21/2023 11:51:45 Influenza, high-dose, quadrivalent, PF 1 completed Not Available [facility] 02/21/2023 11:51:45 COVID-19, mRNA, LNP-S, PF, 30 mcg/0.3 mL dose 1 completed Not Available [facility] 02/21/2023 11:51:45 Influenza, high-dose, trivalent, PF 0 completed Not Available [facility] 02/21/2023 11:51:45 Influenza, high-dose, quadrivalent, PF 9 completed Not Available [facility] 02/21/2023 11:51:45 Pneumococcal conjugate PCV 13 8 completed Not Available [facility] 02/21/2023 11:51:45 influenza, unspecified formulation 8 completed Not Available [facility] 02/21/2023 11:51:45 COVID-19, mRNA, LNP-S, PF, 30 mcg/0.3 mL dose 1 completed Not Available [facility] 02/21/2023 11:51:45 COVID-19, mRNA, LNP-S, PF, 30 mcg/0.3 mL dose 1 completed Not Available [facility] 02/21/2023 11:51:45 Influenza, split virus, trivalent, preservative 8 completed Not Available [facility] 02/21/2023 11:51:45 Influenza, split virus, quadrivalent, PF 8 completed Not Available [facility] 02/21/2023 11:51:45 Influenza, split virus, quadrivalent, PF 6 completed Not Available [facility] 02/21/2023 11:51:45 Influenza, split virus, trivalent, preservative 5 completed Not Available [facility] 02/21/2023 11:51:45 Past Encounters Encounter ID Performer Location Encounter Start Date Encounter Closed Date Diagnosis/Indication Diagnosis SNOMED-CT Code Diagnosis ICD10 Code Diagnosis Note [id number] [facility] [address] [place] [address] 1 12/25/2020 00:00:00 12/25/2020 14:35:42 [id number] [facility] [address] [place] [address] 1 05/14/2021 00:00:00 05/14/2021 21:56:08 [id number] [facility] [address] [place] [address] 1 09/10/2021 00:00:00 09/10/2021 22:34:49 [id number] [facility] [address] [place] [address] 1 04/01/2022 00:00:00 04/05/2022 15:17:00 [id number] [facility] [address] [place] [address] 04/09/2022 00:00:00 04/14/2022 12:31:51 [id number] _ATHENA_M IGRATION_ DEFAULT_1 _1 , 05/31/2022 00:00:00 06/04/2022 10:18:16 [id number] [facility] [address] [place] [address] 1 07/29/2022 00:00:00 07/29/2022 21:33:19 [id number] Brittanie Rose MD [facility] Internal [facility] [address] [facility] [address] [place] [address] 01/20/2023 09:52:25 01/20/2023 11:11:46 History of claudication 510935230 Z86.79 Essential hypertension 39154395 I10 Peripheral venous insufficiency 89346760 I87.2 Pure hypercholesterolemia 068556734 E78.00 Type 2 agustin betes mellitus without complication 080543354 E11.9 [id number] Brittanie Rose MD [facility] Internal Med [facility] [address] [address] 06/02/2023 10:14:48 06/02/2023 10:58:23 Essential hypertension 06030424 I10 Pure hypercholesterolemia 188211331 E78.00 Peripheral venous insufficiency 31718405 I87.2 Type 2 agustin betes mellitus without complication 058086236 E11.9 [id number] Elmo Quispe MD [facility]_[place] [id number] 9 06/16/2023 09:57:55 06/16/2023 10:52:07 Pain of left knee joint 7368103526 03084 M25.491 [id number] Brittanie Rose MD [facility] Internal Med [facility] [address] [place] [address] 09/29/2023 11:07:25 09/29/2023 12:26:05 Type 2 diabetes mellitus 15374424 E11.9 Essential hypertension 79691876 I10 Peripheral venous insufficiency 00603842 I87.2 Health Concerns Section Related Observation LastModified by Organization Detai ls LastModified Time None Recorded Concern Status LastModified by Organization Details LastModified Time None Recorded Advance Directives Directive N: Payers Encounter Date Sequence Insurance Name Policy Number Policy Hyatt Covered Member ID Hyatt Member ID Guarantor Name 01/20/[address] [facility] (MEDICARE REPLACEMENT/A DVANTAGE - HMO) [id number] Zeeshan Flores [id number] Zeeshan Flores 06/02/[address] [facility] (MEDICARE REPLACEMENT/A DVANTAGE - HMO) [id number] Zeeshan Flores [id number] Zeeshan Flores 06/16/[address] [facility] (MEDICARE REPLACEMENT/A DVANTAGE - HMO) [id number] Zeeshan Cruz Sandra [id number] Zeeshan Sandra 09/29/[address] [facility] (MEDICARE REPLACEMENT/A DVANTAGE - HMO) [id number] Zeeshan Cruz Sandra [id number] Zeeshan Sandra Notes Date Note Type Note Provider Name and Address Organization Details Recorded Time 01/21/20 23 text/htm l hypertension no headache no dizzinessdiabetes no polyphagia polydipsia hypoglycemiahyperlipidemia pain was that heperipheral vascular venous insufficiency he really needs to wear the stockingspain in calves when walking Brittanie Rose MD [address] [employer], [place], [address], [employer] [facility] 01/26/2023 13:34:26 06/02/20 23 text/htm l 1. Hypertension no headache no dizziness2. Dyslipidemia does try to watch diet3. Diabetes no polyphagia no polydipsia4. Peripheral venous insufficiency with excoriations he has been seen by woundABIs no significant abnormality Brittanie Rose MD [address], [place], [address], [facility] 06/02/2023 21:25:49 09/29/19 24 text/htm l 1. Hypertension no headache no dizziness2. Dyslipidemia does try to watch diet3. Diabetes no polyphagia no polydipsia4. Peripheral venous insufficiency with excoriations he has been seen by woundABIs no significant abnormality Brittanie Rose MD [address], [place], [address], [facility] 09/29/2023 14:02:54
[2024-09-29 06:52] LABS: Basophils Percent Auto 0.6 % (0.2-1.2); Eosinophils Absolute Auto 0.2 K/mm3 (0-0.3); Eosinophils Percent Auto 3.2 % (0-4.4); Hematocrit 28.4 % (42.0-52.0); Hemoglobin 8.4 g/dL (14.0-18.0); Immature Granulocyte Absolute 0.21 K/mm3 (0.00-0.031); Immature Granulocyte Percent A 3.9 % (0-0.5); Lymphocytes Absolute Auto 0.99 K/mm3 (0.9-3.2); Lymphocytes Percent Auto 18.4 % (18.3-44.2); Mean Corpuscular HGB Conc 29.6 g/dl (32-36); Mean Corpuscular Hemoglobin 27.3 pg (26-34); Mean Corpuscular Volume 92.2 fl (80-100); Mean Platelet Volume 8.7 fl (7.4-10.4); Monocytes Absolute Auto 0.7 K/mm3 (0.1-0.6); Monocytes Percent Auto 12.5 % (2.6-8.5); Neutrophils Absolute Auto 3.3 K/mm3 (1.3-6.7); Neutrophils Percent Auto 61.4 % (45.5-73.1); Platelet Count Result 346 k/mm3 (150-375); Red Blood Count 3.08 M/mm3 (4.6-6.20); Red Cell Distribution Width 16.1 % (11.5-14.5); White Blood Count 5.4 K/mm3 (4.5-10.0)
[2024-09-29 07:15] LABS: Alanine Aminotransferase 23 U/L (6-50); Alkaline Phosphatase 64 U/L (38-126); Anion Gap 4 mmol/L (4-12); Aspartate Amino Transferase 28 U/L (17-59); Bilirubin,Total 0.8 mg/dL (0.2-1.3); Blood Urea Nitrogen 10 mg/dL (9-20); Calcium 7.9 mg/dL (8.4-10.2); Carbon Dioxide 32 mmol/L (22-30); Chloride 99 mmol/L (98-107); Estimated CRCL calculation 158 ml/min; Estimated Glomerular Filt Rate > 60; Glucose 111 mg/dL (65-110); Magnesium 2.1 mg/dL (1.6-2.3); Potassium 3.9 mmol/L (3.4-5.0); Sodium 135 mmol/L (137-145)
[2024-09-29 07:24] LABS: Anisocytosis 1+; Hypochromasia 1+; Platelet Estimate Adequate (Adequate); Schistocytes None Seen
--- OUTSIDE RECORDS SUMMARY | 2024-09-29 08:12 | XMS_ITS | Clinical Summary ---
Author Organization [facility] Address [address] [place] [address] Care Team Providers Care Hammersmith Helper Name Role Phone Unavailable Primary Care Provider Unavailabl e Immunizations Immunization Administration Dates Next Due Covid-19, Mrna, Lnp-s, Pf, 30 Mcg/0.3 Ml Dose (P fizer) 06/20/2021 Social History Tobacco Use Types Packs/Day Years Used Date Smoking Tobacco: Never Assessed Sex and Gender Information Value Date Recorded Sex Assigned at Not on file Legal Sex Male 11:05 AM CDT Gender Identity Not on file Sexual Orientation Not on file Plan of Treatment Health Maintenance Due Date Last Done Comments Hepatitis C Virus (HCV) Screening 1950 TdaP Immunization 1950 Colonoscopy 1996 Colorectal Cancer Screening 1996 Cologuard 2001 Immunochemical Fecal Occult Blood 2001 Zoster Immunization (1 of 2) 2001 Pneumococcal Immunization (50+ years) (2 of 2 - PPSV23) 07/29/2019 07/29/2018 Influenza Immunization (#1) 05/23/202405/24, 07/09/2019, 07/29/2018, Additional history exists SARS-COV-2 Immunization (2023- season) 2024 06/20/2021, 12/05/2020, 11/14/2020 Respiratory Syncytial Virus (RSV) Immunization (Adult) (1 - 1-dose 75+ series) 2026 Hepatitis B Immunization Aged Out No longer eligible based on patient's age to complete this topic Meningococcal Immunization (ACWY) Aged Out No longer eligible based on patient's age to complete this topic Rotavirus Immunization Aged Out No lo nger eligible based on patient's age to complete this topic
--- OUTSIDE RECORDS SUMMARY | 2024-09-29 08:12 | XMS_ITS | Encounter Summary ---
Author Organization [facility] Address [address] [place] [address] Care Team Providers Care Agriculture Technician Name Role Phone Unavailable Primary Care Provider Unavailabl e Encounter Details Date Type Department Care Team (Late st Contact Info) Description 06/20/2021 11:15 AM CDT Immunization [place] [facility] [place] [employer] Mobile Immunization [address] [place] [address] Need for vaccination (Primary Dx) Social History Tobacco Use Types Packs/Day Years Used Date Smoking Tobacco: Never Assessed Sex and Gender Information Value Date Recorded Sex Assigned at Not on file Legal Sex Male 11:05 AM CDT Gender Identity Not on file Sexual Orientation Not on file documented as of this encounter Plan of Treatment Not on file documented as of this encounter Visit Diagnoses Diagnosis Need for vaccination- Primary Need for prophylactic vaccination and inoculation against unspecified single disease documented in this encounter
[2024-09-29 08:23] LABS: Glucose Point of Care 102 mg/dl (65-105)
[2024-09-29] MEDS: lisinopriL 10 MG TABLET PO (08:30)
[2024-09-29] MEDS: ROSUVASTATIN 10 MG TABLET PO (08:30)
[2024-09-29] MEDS: ENOXAPARIN 40 MG/0.4 ML SYRINGE SUB-Q (08:31)
[2024-09-29] MEDS: EMPAGLIFLOZIN 10 MG TABLET PO (08:31)
[2024-09-29] MEDS: ASPIRIN 81 MG ENTERIC TABLET PO (08:31)
[2024-09-29] MEDS: polyethylene glycoL 3350 17 GM POWD.PACK PO (08:32)
--- NOTE | 2024-09-29 10:05 | P.PNIM_ITS ---
Progress Note: A&P Assessment and Plan (1) Cellulitis of left leg: Code(s): L03.116 - Cellulitis of left lower limb Status: Acute Assessment and Plan: Left lower extremity wounds with purulence drainage concerning for abscess - Venous doppler: negative - wound cultures obtained on 09/22 and 09/23: group B strep isolated - antibiotics: keflex, course to be completed on 10/04 - Monitor vital signs, I&Os, neuro status and patient is a fall risk - Monitor serum electrolytes, CBC, cultures, WBC and temp curve - Consult with wound care - Consult general surgery s/p I&D of multiple left below knee abscesses on 09/[address] Gandhi s/p I&D of long tracking abscess left lower leg, lateral and posterior on 09/[address] Gandhi Continue antibiotics Wound vac placed on 09/27, will go home with wound vac. Auth recieved by care coordination. (2) Diabetes type 2: Code(s): E11.9 - Type 2 diabetes mellitus without complications Status: Acute Assessment and Plan: - hypoglycemia protocol - POC blood glucose ACHS - home medication - tresiba 20 units and jardiance 10 mg daily - correct regimen ordered - lantus 20 units and SSI and jardiance 10 mg daily - A1C 8.3 (3) Hypertension: Code(s): I10 - Essential (primary) hypertension Status: Acute Assessment and Plan: Chronic, continue home medications - lisinopril 10 mg daily - remains stable, continue to monitor (4) Hyperlipidemia: Code(s): E78.5 - Hyperlipidemia, unspecified Status: Acute Assessment and Plan: -Continue Crestor (5) Iron deficiency anemia: Code(s): D50.9 - Iron deficiency anemia, unspecified Status: Acute Assessment and Plan: -Chronic anemia noted on labs -Ordered anemia labs B12/Folate, iron/TIBC and ferritin -Iron count and %saturation quite low- will order replacement iV Time Spent With Patient Time with patient: 25 - 35 minutes Subjective Date/time seen: 09/29/24 10:05 Interval history: 74-year-old male patient with a history hypertension hyperlipidemia diabetes and PVD is admitted for left lower extremity cellulitis/possible abscess. Patient is pleasant sitting up in his chair. He states that his legs are looking better each day. He has no complaints denying chest pain, shortness of breath, palpitations, nausea/vomiting and abdominal pain. Discussed patient with surgery PHARMACY ACCOUNT DIRECTOR and they plan for a wound vac change tomorrow. Patient will remain inpatient to undergo the change. Per care coordination patient has received authorization for wound vac when he is discharged. Review of Systems Review of Systems: All systems reviewed & are unremarkable except as noted in HPI and below Exam Narrative: AF HR 85 RR 13 SpO2 99 BP 130/42 General: male in no acute respiratory distress who is nontoxic appearing, lying semi recumbent in bed. HEENT: Normocephalic. Atraumatic. Extraocular movement intact. Sclera clear and anicteric. No facial asymmetry. Chest: Lungs are clear to auscultation bilaterally. No wheezes or crackles. CV: Heart was regular rate and rhythm. S1/S2. No murmurs, gallops, or rubs. Abd: Abdomen was soft. Nontender. Nondistended. Postive bowel sounds. Ext: Right lower extremity with edema and redness extending to the knee, large scab without drainage to the mid lateral keareny. Wound vac in place to the left lower extremity with dressing clean dry and intact. Neuro: Speech is clear. Objective Data Vital Signs Vital Signs: Vital Signs - 24 hr 09/28/24 12:00 09/28/24 14:00 09/28/24 16:03 Temperature 97.9 F Pulse Rate 98 82 134 H Respiratory Rate 20 Blood Pressure 143/65 H Pulse Oximetry 96 Oxygen Delivery 09/28/24 20:00 09/28/24 20:00 09/28/24 20:40 Temperature 96.9 F L Pulse Rate 91 103 H 91 Respiratory Rate 16 16 Blood Pressure 128/50 L Pulse Oximetry 98 98 Oxygen Delivery Room Air 09/29/24 00:00 09/29/24 04:00 09/29/24 05:38 Temperature 96.9 F L Pulse Rate 80 85 85 Respiratory Rate 13 Blood Pressure 130/42 L Pulse Oximetry 99 Oxygen Delivery Intake/Output Intake/Output: Intake & Output 09/26/24 09/27/24 09/28/24 09/29/24 23:59 23:59 23:59 23:59 Intake Total 3320 1470 1317 500 Balance 3320 1470 1317 500 Meds/Results Medications: Active Medications Generic Name Dose Route Start Last Admin Trade Name Freq PRN Reason Stop Dose Admin Acetaminophen 500 mg 09/23/24 19:01 Acetaminophen 500 Mg Tablet PO Q6H PRN Pain Rated 1-3 Aspirin 81 mg 09/23/24 09:00 09/29/24 08:31 Aspirin 81 Mg Enteric Tablet PO 81 mg DAILY ISABELLE Administration Cephalexin HCl 500 mg 09/28/24 23:00 09/29/24 05:13 Cephalexin 500 Mg Capsule PO 10/04/24 23:59 500 mg Q6HR ISABELLE Administration Dextrose 12.5 gm 09/22/24 23:19 Dextrose 50% 25 Gm/50 Ml Syringe IV PUSH PRN PRN Hypoglycemia Protocol Empagliflozin 10 mg 09/23/24 09:00 09/29/24 08:31 Empagliflozin 10 Mg Tablet PO 10 mg DAILY ISABELLE Administration Enoxaparin Sodium 40 mg 09/23/24 09:00 09/29/24 08:31 Enoxaparin 40 Mg/0.4 Ml Syringe SUB-Q 40 mg DAILY ISABELLE Administration Glucagon 1 mg 09/22/24 23:19 Glucagon For Inj 1 Mg Vial IM PRN PRN Hypoglycemia Protocol Glucose 15 gm 09/22/24 23:19 Glucose Oral Gel 15 Gm Of Glucse In 37.5 Gm Tube PO PRN PRN Hypoglycemia Protocol Dextrose 1,000 mls @ 100 mls/hr 09/22/24 23:19 Dextrose 5% 1,000 Ml IVPB PRN PRN Hypoglycemia Protocol Ibuprofen 800 mg in 200 mls @ 400 mls/hr 09/23/24 19:01 Caldolor 800 Mg/200 Ml IVPB Q6H PRN Breakthrough Pain Rated 1-3 or NPO Insulin Aspart 3 - 6 units 09/23/24 08:00 09/29/24 08:31 Insulin Aspart (*Bkc) 100 Units/Ml SUB-Q Not Given [facility] Protocol Insulin Glargine 20 units 09/23/24 09:00 09/28/24 09:22 Insulin Glargine (*Bkc) 100 Units/Ml SUB-Q 20 units DAILY ISABELLE Administration Lisinopril 10 mg 09/23/24 09:00 09/29/24 08:30 Lisinopril 10 Mg Tablet PO 10 mg DAILY ISABELLE Administration Morphine Sulfate 2 mg 09/23/24 19:01 Morphine Sulfate (*Crx) 2 Mg/Ml Inj IV PUSH Q2H PRN Breakthrough Pain Rated 4-6 or NPO Morphine Sulfate 4 mg 09/23/24 19:01 09/27/24 22:28 Morphine Sulfate (*Crx) 4 Mg/Ml Inj IV PUSH 4 mg Q2H PRN Administration Breakthrough Pain Rated 7-10 or NPO Ondansetron HCl 4 mg 09/22/24 16:38 Ondansetron Inj 4 Mg/2 Ml Vial IV PUSH Q4H PRN Nausea Oxycodone/Acetaminophen 1 tablet 09/23/24 19:01 09/24/24 16:25 Oxycodone/Acetaminophen (*Crx) 5-325 Mg Tablet PO 1 tablet Q4H PRN Administration Pain Rated 4-6 Oxycodone/Acetaminophen 1 tab 09/23/24 19:01 09/29/24 05:29 Oxycodone/Acetaminophen (*Crx) 10-325 Mg Tablet PO 1 tab Q6H PRN Administration Pain Rated 7-10 Polyethylene Glycol 17 gm 09/24/24 09:00 09/29/24 08:32 Polyethylene Glycol 3350 17 Gm Powd.Pack PO 17 gm QAM ISABELLE Administration Rosuvastatin Calcium 10 mg 09/23/24 09:00 09/29/24 08:30 Rosuvastatin 10 Mg Tablet PO 10 mg DAILY ISABELLE Administration Senna/Docusate Sodium 2 tab 09/23/24 21:00 09/28/24 23:22 Senna/Docusate Sodium Tablet PO 2 tab HS ISABELLE Administration Radiology Results: ITS Impressions Venous Doppler Study 09/23/24 21:34 IMPRESSION: Negative bilateral lower extremity venous US. No deep vein thrombosis. Chest X-Ray 09/26/24 06:29 IMPRESSION: No active pulmonary disease Labs Labs: Laboratory Results - last 24 hr 09/28/24 09/28/24 09/28/24 11:59 17:25 20:09 WBC RBC Hgb Hct MCV MCH MCHC RDW Plt Count MPV Immature Gran % (Auto) Neut % (Auto) Lymph % (Auto) [place] % (Auto) Eos % (Auto) Baso % (Auto) Lymph # (Auto) [place] # (Auto) Eos # (Auto) Baso # (Auto) Abs Immat Gran (auto) Absolute Neuts (auto) Absolute Nucleated RBC Nucleated RBC % Platelet Estimate Hypochromasia Anisocytosis Schistocytes Sodium Potassium Chloride Carbon Dioxide Anion Gap BUN Creatinine Estim Creat Clear Calc Estimated GFR Glucose POC Capillary Glucose 140 H 146 H 155 H Calcium Magnesium Total Bilirubin AST ALT Alkaline Phosphatase Total Protein Albumin 09/29/24 09/29/24 06:12 08:08 WBC 5.4 RBC 3.08 L Hgb 8.4 L Hct 28.4 L MCV 92.2 MCH 27.3 MCHC 29.6 L RDW 16.1 H Plt Count 346 MPV 8.7 Immature Gran % (Auto) 3.9 H Neut % (Auto) 61.4 Lymph % (Auto) 18.4 [place] % (Auto) 12.5 H Eos % (Auto) 3.2 Baso % (Auto) 0.6 Lymph # (Auto) 0.99 [place] # (Auto) 0.7 H Eos # (Auto) 0.2 Baso # (Auto) 0.0 Abs Immat Gran (auto) 0.21 H Absolute Neuts (auto) 3.3 Absolute Nucleated RBC 0.000 Nucleated RBC % 0.0 Platelet Estimate Adequate Hypochromasia 1+ Anisocytosis 1+ Schistocytes None seen Sodium 135 L Potassium 3.9 Chloride 99 Carbon Dioxide 32 H Anion Gap 4 BUN 10 Creatinine 0.45 L Estim Creat Clear Calc 158 Estimated GFR > 60 Glucose 111 H POC Capillary Glucose 102 Calcium 7.9 L Magnesium 2.1 Total Bilirubin 0.8 AST 28 ALT 23 Alkaline Phosphatase 64 Total Protein 6.0 L Albumin 3.0 L Quality VTE Prophylaxis VTE prophylaxis: pharmacologic ordered
[2024-09-29 11:40] LABS: Glucose Point of Care 129 mg/dl (65-105)
--- NOTE | 2024-09-29 15:44 | PM.PNGS ---
Progress Note: A&P Assessment and Plan (1) Abscess of left leg: Code(s): L02.416 - Cutaneous abscess of left lower limb Status: Acute Assessment and Plan: Continue wound VAC therapy for now. He is still requiring narcotics for his lower extremity pain, which will hopefully continue to improve. He is currently on PO cephalexin with cultures growing Group B strep. Plan to change the wound VAC tomorrow with Dr. Gandhi and wound care nurses. If his wound looks good, then he could possibly discharge home tomorrow with home health and the wound VAC. Plan to follow-up in the wound clinic in 2 weeks. (2) Cellulitis of left leg: Code(s): L03.116 - Cellulitis of left lower limb Status: Acute Assessment and Plan: Improving (3) Venous stasis dermatitis of both lower extremities: Code(s): I87.2 - Venous insufficiency (chronic) (peripheral) Status: Chronic Assessment and Plan: No change. Plan I have discussed the patient's case and plan of care with Dr. Gandhi. Subjective Subjective Date/Time Seen: 09/29/24 15:44 Post Op day: 5 Patient reports: no new complaints and afebrile Interval history: Patient seen today. He is sitting in the chair. No specific complaints. Plan to d/c home with home health. Home wound vac has been approved. Exam Const: General: comfortable and no acute distress Extrem: Left lower extremity: lower leg ( Wound VAC in place. Suction being held. Minimal serous drainage) Objective Data Vital Signs Vital Signs: Vital Signs - 24 hr 09/28/24 16:03 09/28/24 20:00 09/28/24 20:00 Temperature Pulse Rate 134 H 91 103 H Respiratory Rate 16 Blood Pressure Pulse Oximetry 98 Oxygen Delivery Room Air 09/28/24 20:40 09/29/24 00:00 09/29/24 04:00 Temperature 96.9 F L Pulse Rate 91 80 85 Respiratory Rate 16 Blood Pressure 128/50 L Pulse Oximetry 98 Oxygen Delivery 09/29/24 05:38 09/29/24 08:00 09/29/24 12:00 Temperature 96.9 F L Pulse Rate 85 65 Respiratory Rate 13 Blood Pressure 130/42 L Pulse Oximetry 99 Oxygen Delivery Room Air 09/29/24 14:00 Temperature 98.6 F Pulse Rate 92 Respiratory Rate 22 H Blood Pressure 141/65 H Pulse Oximetry 97 Oxygen Delivery Intake/Output Intake/Output: Intake & Output 09/26/24 09/27/24 09/28/24 09/29/24 23:59 23:59 23:59 23:59 Intake Total 3320 1470 1317 1216 Balance 3320 1470 1317 1216 Meds/Results Medications: Active Medications Generic Name Dose Route Start Last Admin Trade Name Freq PRN Reason Stop Dose Admin Acetaminophen 500 mg 09/23/24 19:01 Acetaminophen 500 Mg Tablet PO Q6H PRN Pain Rated 1-3 Aspirin 81 mg 09/23/24 09:00 09/29/24 08:31 Aspirin 81 Mg Enteric Tablet PO 81 mg DAILY ISABELLE Administration Cephalexin HCl 500 mg 09/28/24 23:00 09/29/24 11:28 Cephalexin 500 Mg Capsule PO 10/04/24 23:59 500 mg Q6HR ISABELLE Administration Dextrose 12.5 gm 09/22/24 23:19 Dextrose 50% 25 Gm/50 Ml Syringe IV PUSH PRN PRN Hypoglycemia Protocol Empagliflozin 10 mg 09/23/24 09:00 09/29/24 08:31 Empagliflozin 10 Mg Tablet PO 10 mg DAILY ISABELLE Administration Enoxaparin Sodium 40 mg 09/23/24 09:00 09/29/24 08:31 Enoxaparin 40 Mg/0.4 Ml Syringe SUB-Q 40 mg DAILY ISABELLE Administration Glucagon 1 mg 09/22/24 23:19 Glucagon For Inj 1 Mg Vial IM PRN PRN Hypoglycemia Protocol Glucose 15 gm 09/22/24 23:19 Glucose Oral Gel 15 Gm Of Glucse In 37.5 Gm Tube PO PRN PRN Hypoglycemia Protocol Dextrose 1,000 mls @ 100 mls/hr 09/22/24 23:19 Dextrose 5% 1,000 Ml IVPB PRN PRN Hypoglycemia Protocol Ibuprofen 800 mg in 200 mls @ 400 mls/hr 09/23/24 19:01 Caldolor 800 Mg/200 Ml IVPB Q6H PRN Breakthrough Pain Rated 1-3 or NPO Insulin Aspart 3 - 6 units 09/23/24 08:00 09/29/24 11:55 Insulin Aspart (*Bkc) 100 Units/Ml SUB-Q Not Given TIDWM ISABELLE Protocol Insulin Glargine 20 units 09/23/24 09:00 09/29/24 10:26 Insulin Glargine (*Bkc) 100 Units/Ml SUB-Q Not Given DAILY [facility] Lisinopril 10 mg 09/23/24 09:00 09/29/24 08:30 Lisinopril 10 Mg Tablet PO 10 mg DAILY ISABELLE Administration Morphine Sulfate 2 mg 09/23/24 19:01 Morphine Sulfate (*Crx) 2 Mg/Ml Inj IV PUSH Q2H PRN Breakthrough Pain Rated 4-6 or NPO Morphine Sulfate 4 mg 09/23/24 19:01 09/27/24 22:28 Morphine Sulfate (*Crx) 4 Mg/Ml Inj IV PUSH 4 mg Q2H PRN Administration Breakthrough Pain Rated 7-10 or NPO Ondansetron HCl 4 mg 09/22/24 16:38 Ondansetron Inj 4 Mg/2 Ml Vial IV PUSH Q4H PRN Nausea Oxycodone/Acetaminophen 1 tablet 09/23/24 19:01 09/24/24 16:25 Oxycodone/Acetaminophen (*Crx) 5-325 Mg Tablet PO 1 tablet Q4H PRN Administration Pain Rated 4-6 Oxycodone/Acetaminophen 1 tab 09/23/24 19:01 09/29/24 11:28 Oxycodone/Acetaminophen (*Crx) 10-325 Mg Tablet PO 1 tab Q6H PRN Administration Pain Rated 7-10 Polyethylene Glycol 17 gm 09/24/24 09:00 09/29/24 08:32 Polyethylene Glycol 3350 17 Gm Powd.Pack PO 17 gm QAM ISABELLE Administration Rosuvastatin Calcium 10 mg 09/23/24 09:00 09/29/24 08:30 Rosuvastatin 10 Mg Tablet PO 10 mg DAILY [facility] Administration Senna/Docusate Sodium 2 tab 09/23/24 21:00 09/28/24 23:22 Senna/Docusate Sodium Tablet PO 2 tab HS ISABELLE Administration Radiology Results: ITS Impressions Venous Doppler Study 09/23/24 21:34 IMPRESSION: Negative bilateral lower extremity venous US. No deep vein thrombosis. Chest X-Ray 09/26/24 06:29 IMPRESSION: No active pulmonary disease Labs Labs: Laboratory Results - last 24 hr 09/28/24 09/28/24 09/29/24 17:25 20:09 06:12 WBC 5.4 RBC 3.08 L Hgb 8.4 L Hct 28.4 L MCV 92.2 MCH 27.3 MCHC 29.6 L RDW 16.1 H Plt Count 346 MPV 8.7 Immature Gran % (Auto) 3.9 H Neut % (Auto) 61.4 Lymph % (Auto) 18.4 [place] % (Auto) 12.5 H Eos % (Auto) 3.2 Baso % (Auto) 0.6 Lymph # (Auto) 0.99 [place] # (Auto) 0.7 H Eos # (Auto) 0.2 Baso # (Auto) 0.0 Abs Immat Gran (auto) 0.21 H Absolute Neuts (auto) 3.3 Absolute Nucleated RBC 0.000 Nucleated RBC % 0.0 Platelet Estimate Adequate Hypochromasia 1+ Anisocytosis 1+ Schistocytes None seen Sodium 135 L Potassium 3.9 Chloride 99 Carbon Dioxide 32 H Anion Gap 4 BUN 10 Creatinine 0.45 L Estim Creat Clear Calc 158 Estimated GFR > 60 Glucose 111 H POC Capillary Glucose 146 H 155 H Calcium 7.9 L Magnesium 2.1 Total Bilirubin 0.8 AST 28 ALT 23 Alkaline Phosphatase 64 Total Protein 6.0 L Albumin 3.0 L 09/29/24 09/29/24 08:08 11:37 WBC RBC Hgb Hct MCV MCH MCHC RDW Plt Count MPV Immature Gran % (Auto) Neut % (Auto) Lymph % (Auto) [place] % (Auto) Eos % (Auto) Baso % (Auto) Lymph # (Auto) [place] # (Auto) Eos # (Auto) Baso # (Auto) Abs Immat Gran (auto) Absolute Neuts (auto) Absolute Nucleated RBC Nucleated RBC % Platelet Estimate Hypochromasia Anisocytosis Schistocytes Sodium Potassium Chloride Carbon Dioxide Anion Gap BUN Creatinine Estim Creat Clear Calc Estimated GFR Glucose POC Capillary Glucose 102 129 H Calcium Magnesium Total Bilirubin AST ALT Alkaline Phosphatase Total Protein Albumin
[2024-09-29 17:06] LABS: Glucose Point of Care 138 mg/dl (65-105)
[2024-09-29] MEDS: SENNA/DOCUSATE SODIUM TABLET 2 TAB PO (20:16)
[2024-09-29 20:25] LABS: Glucose Point of Care 174 mg/dl (65-105)
[2024-09-30 05:44] VITALS: BP 145/45; PULSE 82; RESP 12; TEMP 36.5; O2SAT 97
[2024-09-30] MEDS: oxyCODONE/ACETAMINOPHEN (*CRX) 10-325 MG TABLET 1 TAB PO ×2 (06:29→13:08)
[2024-09-30] MEDS: CEPHALEXIN 500 MG CAPSULE PO ×2 (06:29→13:08)
[2024-09-30 07:04] LABS: Basophils Percent Auto 0.4 % (0.2-1.2); Eosinophils Absolute Auto 0.2 K/mm3 (0-0.3); Eosinophils Percent Auto 3.7 % (0-4.4); Hematocrit 31.5 % (42.0-52.0); Hemoglobin 9.3 g/dL (14.0-18.0); Immature Granulocyte Percent A 1.9 % (0-0.5); Lymphocytes Percent Auto 19.4 % (18.3-44.2); Mean Corpuscular HGB Conc 29.5 g/dl (32-36); Mean Corpuscular Hemoglobin 27.4 pg (26-34); Mean Corpuscular Volume 92.6 fl (80-100); Mean Platelet Volume 8.7 fl (7.4-10.4); Monocytes Absolute Auto 0.5 K/mm3 (0.1-0.6); Monocytes Percent Auto 9.5 % (2.6-8.5); Neutrophils Absolute Auto 3.4 K/mm3 (1.3-6.7); Neutrophils Percent Auto 65.1 % (45.5-73.1); Platelet Count Result 367 k/mm3 (150-375); Red Cell Distribution Width 16.1 % (11.5-14.5); White Blood Count 5.2 K/mm3 (4.5-10.0)
[2024-09-30 07:21] LABS: Alanine Aminotransferase 21 U/L (6-50); Albumin Level 3.2 g/dL (3.5-5.1); Alkaline Phosphatase 69 U/L (38-126); Anion Gap 4 mmol/L (4-12); Aspartate Amino Transferase 32 U/L (17-59); Bilirubin,Total 0.9 mg/dL (0.2-1.3); Blood Urea Nitrogen 8 mg/dL (9-20); Calcium 8.4 mg/dL (8.4-10.2); Carbon Dioxide 34 mmol/L (22-30); Chloride 99 mmol/L (98-107); Estimated CRCL calculation 153 ml/min; Estimated Glomerular Filt Rate > 60; Glucose 116 mg/dL (65-110); Magnesium 2.2 mg/dL (1.6-2.3); Sodium 137 mmol/L (137-145)
[2024-09-30 08:02] VITALS: PULSE 69
[2024-09-30 08:04] LABS: Anisocytosis 1+; Hypochromasia 1+; Platelet Estimate Adequate (Adequate)
[2024-09-30 08:05] LABS: Schistocytes None Seen
[2024-09-30 08:23] LABS: Glucose Point of Care 116 mg/dl (65-105)
--- NOTE | 2024-09-30 09:54 | PCNWS ---
Weekly nutritional screen. Patient is tolerating current Diabetic diet with adequate intake at 100% all meals. Glucose WNL. No weight loss reported. No nutritional recommendations at this time.
[2024-09-30] MEDS: ROSUVASTATIN 10 MG TABLET PO (09:59)
[2024-09-30] MEDS: polyethylene glycoL 3350 17 GM POWD.PACK PO (09:59)
[2024-09-30] MEDS: EMPAGLIFLOZIN 10 MG TABLET PO (09:59)
[2024-09-30] MEDS: ASPIRIN 81 MG ENTERIC TABLET PO (09:59)
[2024-09-30] MEDS: lisinopriL 10 MG TABLET PO (09:59)
[2024-09-30] MEDS: ENOXAPARIN 40 MG/0.4 ML SYRINGE SUB-Q (09:59)
[2024-09-30] MEDS: INSULIN GLARGINE (*BKC) 100 UNITS/ML 20 UNITS SUB-Q (10:15)
[2024-09-30] MEDS: oxyCODONE/ACETAMINOPHEN (*CRX) 5-325 MG TABLET 1 TABLET PO (10:16)
[2024-09-30 12:09] LABS: Glucose Point of Care 105 mg/dl (65-105)
--- NOTE | 2024-09-30 14:32 | P.DS_ITS ---
DS: Admitting Diagnosis Discharge Date 09/30/2024 Admitting Diagnosis Cellulitis of left leg diabetes type 2 hypertension hyperlipidemia iron deficiency anemia DS: Discharge Diagnosis Discharge Diagnosis (1) Cellulitis of left leg: Code(s): L03.116 - Cellulitis of left lower limb Status: Acute (2) Diabetes type 2: Code(s): E11.9 - Type 2 diabetes mellitus without complications Status: Acute (3) Hypertension: Code(s): I10 - Essential (primary) hypertension Status: Acute (4) Hyperlipidemia: Code(s): E78.5 - Hyperlipidemia, unspecified Status: Acute (5) Iron deficiency anemia: Code(s): D50.9 - Iron deficiency anemia, unspecified Status: Acute DS: Summary Hospital Course Reason for hospitalization: Cellulitis of left leg diabetes type 2 hypertension hyperlipidemia iron deficiency anemia Hospital Course: 74-year-old male patient with a history hypertension hyperlipidemia diabetes and PVD is admitted for left lower extremity cellulitis/abscess. Patient not meeting sepsis criteria on admission. Venous doppler negative for DVT. Wound cultures were obtained and grew group B strep isolated. Patient started on antibiotics and surgery was consulted. Patient underwent an I&D of multiple left below knee abscesses on 09/23 and an I&D of long tracking abscess left lower leg, lateral and posterior on 09/[address] Gandhi. A wound vac was placed on 09/27. Patient was transitioned to oral antibiotics and discharged with wound vac in place. He has a follow up with Dr. Gandhi and the wound clinic outpatient. During admission patient was noted to have iron deficiency anemia and was started on iron supplementation as well. At time of discharge patient has no complaints denying chest pain, shortness a breath, palpitations, nausea / vomiting, and abdominal pain. patient discharged home in a stable condition with home health. He is to continue his antibiotics as prescribed and follow-up with his primary care provider in 1 week and surgery as scheduled. Status at Discharge Functional status at discharge: independent ambulation Time Spent with Patient Time attestation: Total time spent providing and/or coordinating discharge services: Time spent: Greater than 30 minutes Exam Narrative: AF HR 82 RR 12 SpO2 97 BP 145/45 General: male in no acute respiratory distress who is nontoxic appearing, lying semi recumbent in bed. HEENT: Normocephalic. Atraumatic. Extraocular movement intact. Sclera clear and anicteric. No facial asymmetry. Chest: Lungs are clear to auscultation bilaterally. No wheezes or crackles. CV: Heart was regular rate and rhythm. S1/S2. No murmurs, gallops, or rubs. Abd: Abdomen was soft. Nontender. Nondistended. Postive bowel sounds. Ext: Right lower extremity with edema and redness extending to the knee, large scab without drainage to the mid lateral kearney. Wound vac in place to the left lower extremity with dressing clean dry and intact (pictures taken by wound RN and uploaded to chart) Neuro: Speech is clear. DS: Data Data Completed and Pending Completed studies during hospitalization: venous doppler chest xr Labs on day of discharge: Labs from last 24 hours 09/30/24 09/30/24 09/30/24 11:54 07:54 06:23 WBC 5.2 RBC 3.40 L Hgb 9.3 L Hct 31.5 L MCV 92.6 MCH 27.4 MCHC 29.5 L RDW 16.1 H Plt Count 367 MPV 8.7 Immature Gran % (Auto) 1.9 H Neut % (Auto) 65.1 Lymph % (Auto) 19.4 [place] % (Auto) 9.5 H Eos % (Auto) 3.7 Baso % (Auto) 0.4 Lymph # (Auto) 1.00 [place] # (Auto) 0.5 Eos # (Auto) 0.2 Baso # (Auto) 0.0 Abs Immat Gran (auto) 0.10 H Absolute Neuts (auto) 3.4 Absolute Nucleated RBC 0.000 Nucleated RBC % 0.0 Platelet Estimate Adequate Hypochromasia 1+ Anisocytosis 1+ Schistocytes None seen Sodium 137 Potassium 4.0 Chloride 99 Carbon Dioxide 34 H Anion Gap 4 BUN 8 L Creatinine 0.46 L Estim Creat Clear Calc 153 Estimated GFR > 60 Glucose 116 H POC Capillary Glucose 105 116 H Calcium 8.4 Magnesium 2.2 Total Bilirubin 0.9 AST 32 ALT 21 Alkaline Phosphatase 69 Total Protein 7.0 Albumin 3.2 L 09/29/24 09/29/24 19:33 16:55 WBC RBC Hgb Hct MCV MCH MCHC RDW Plt Count MPV Immature Gran % (Auto) Neut % (Auto) Lymph % (Auto) [place] % (Auto) Eos % (Auto) Baso % (Auto) Lymph # (Auto) [place] # (Auto) Eos # (Auto) Baso # (Auto) Abs Immat Gran (auto) Absolute Neuts (auto) Absolute Nucleated RBC Nucleated RBC % Platelet Estimate Hypochromasia Anisocytosis Schistocytes Sodium Potassium Chloride Carbon Dioxide Anion Gap BUN Creatinine Estim Creat Clear Calc Estimated GFR Glucose POC Capillary Glucose 174 H 138 H Calcium Magnesium Total Bilirubin AST ALT Alkaline Phosphatase Total Protein Albumin Discharge Plan Discharge Attending physician on discharge: Ayanna Pruitt Consulting providers: Nohemy Conde; Oleg Gandhi Discharging Clinician: Yuliet Iyer Anticipated Discharge Date/Time: 09/29/24 13:47 Patient Disposition: Home Health Service Activity: as tolerated Diet: as tolerated and diabetic Discharge Instructions: Per Care Coordination. Patient to have [facility] for RN/wound care/wound vac management [phone]. They will contact you to schedule first visit likely for Friday10/04/24 Discharge disposition: Patient admitted to the hospital for cellulitis of the lower extremities with abscess formation Underwent incision and drainage on 09/23 and 09/[address] Gandhi Wound vac placed, this is to be cared for by home health which has been set up by care coordination during admission Take medications as prescribed Keflex every 6 hours, course to be completed on 10/04 Attached is information on this medication Follow up with Dr. Gandhi at the [facility] is on September at 11:30AM Please arrive to Registration(located in lobby of Entrance 1-where blood work is performed) Once you are Registered and have your papers, use the elevators in the same lobby to the 2nd floor Follow the signs that will direct you to the Wound Center. Any questions regarding your appointment, please contact us at [phone] Monitor blood glucose levels Monitor blood pressures Take caution while standing, rising, or moving Change positions slowly taking a break between each position change If you standing feel dizzy sat back down and take a break Encouraged to continue with yearly vaccinations Return to the emergency department if he developed sudden shortness of breath, chest pain, nausea, vomiting, upset stomach or intractable diarrhea Return to the emergency department if you develop fever greater than 101.5 Follow-up with the primary care physician within 1-2 weeks Thank you for choosing [facility] for your healthcare needs Patient Instructions: Antibiotic Form, Cellulitis (GEN), Negative Pressure Wound Therapy (DC), Abscess Incision and Drainage (DC) Patient Language: Nigerian Stand Alone Forms: General Discharge Information Follow-up/Referrals: Matti*Jacob MD [Primary Care Provider] - 1 Week Oleg Gandhi MD [Physician] - 10/14/24 11:30 am (In the [facility]. Please arrive by 11:00AM, as you must go through Registration) Discharge Medications: New cephalexin 500 mg Capsule 500 mg PO Q6HR Qty: 16 0RF Continued Jardiance 10 mg tablet 10 mg PO DAILY lisinopril 10 mg tablet 10 mg PO DAILY aspirin [Adult Aspirin Regimen] 81 mg tablet,delayed release (DR/EC) 81 mg PO DAILY rosuvastatin [Crestor] 10 mg tablet 10 mg PO DAILY Fish Oil 100-160-1,000 mg capsule 1 cap PO DAILY insulin degludec [Tresiba FlexTouch U-100] 100 unit/mL (3 mL) insulin pen 20 unit subcut DAILY prednisone 10 mg tablet 10 mg PO DAILY mupirocin 2 % ointment 1 applic TOPICAL DAILY clobetasol 0.05 % ointment 1 applic TOPICAL Q3D Patient Comments: Apply to unaffected area on bilateral legs. doxycycline hyclate 100 mg tablet 200 mg PO BID Date of admission: 09/23/24 16:40 Primary Care Provider: Jacob Woodward Admitting Provider: Doyle Hartley Attending physician on admission: Yuliet Iyer Condition: Stable Hospitalist MIPS Heart Failure (Exclusion) Patient has history of Heart Transplant or Left Ventricular Assistive Device?: No IF YES, STOP HERE Heart Failure (Qualifier) Patient has current or prior documentation of LVEF less than or equal to 40%, or mod/servere depressed LVSF?: No IF NO, STOP HERE
== END 2024-09-30 16:05 | disposition home health service (06) | DRG 300 ==
LOC: ANHED 12:28 → ANH3MEDSUR 17:17
PROVIDERS: Nurse Practitioner; Physician Assistant; Student in an Organized Health Care Education/Training Program; Surgery; Admitting Provider Internal Medicine; Emergency Provider Emergency Medicine; PCP Internal Medicine; Visit Provider Student in an Organized Health Care Education/Training Program
PROC: 0J9P0ZZ Drainage of Left Lower Leg Subcutaneous Tissue and Fascia, Open Approach (ICD-10-PCS; principal; 2024-09-23 18:30)
DX: E11.51 Type 2 diabetes mellitus with diabetic peripheral angiopathy without gangrene (principal); L02.416 Cutaneous abscess of left lower limb; L03.116 Cellulitis of left lower limb; L97.829 Non-pressure chronic ulcer of other part of left lower leg with unspecified severity; L97.819 Non-pressure chronic ulcer of other part of right lower leg with unspecified severity; B95.5 Unspecified streptococcus as the cause of diseases classified elsewhere; I10 Essential (primary) hypertension; I48.91 Unspecified atrial fibrillation; I87.2 Venous insufficiency (chronic) (peripheral); I87.8 Other specified disorders of veins; D50.9 Iron deficiency anemia, unspecified; E78.5 Hyperlipidemia, unspecified; Z20.822 Contact with and (suspected) exposure to COVID-19; Z79.4 Long term (current) use of insulin; Z79.82 Long term (current) use of aspirin
CPT/HCPCS: 36415; 71045; 80048; 80053; 82607; 82728; 82746; 82948; 83036; 83540; 83550; 83735; 84145; 85025; 85610; 85652; 85730; 86140; 87070; 87075; 87205; 87636; 93005; 93970; 96365; 96366; 96372; 96375; 97161; 97165; 99212; 99285; A9270; G0378; G0463; J0330; J0690; J1650; J1756; J1815; J2003; J2004; J2250; J2270; J2704; J2765; J3010; J3370; J7030; J7120

== ENCOUNTER 2024-12-30 07:06 | Outpatient (RCR) | payer MEDICARE, SELFPAY ==
[2024-10-14 13:22] VITALS: BMI 32.0
== END 2025-01-12 23:59 | disposition home or self-care (01) ==
LOC: ANHWOC 07:06
PROVIDERS: PCP Internal Medicine; Visit Provider Surgery
DX: L02.416 Cutaneous abscess of left lower limb (principal); Z48.00 Encounter for change or removal of nonsurgical wound dressing
CPT/HCPCS: 97606; 99213; 99214; G0463

== ENCOUNTER 2025-01-20 07:57 | Outpatient (RCR) | payer MEDICARE, SELFPAY ==
[2025-01-13 00:03] VITALS: BMI 32.0
== END 2025-03-11 12:46 | disposition home or self-care (01) ==
LOC: ANHWOC 07:57
PROVIDERS: PCP Internal Medicine; Visit Provider Surgery
DX: Z48.00 Encounter for change or removal of nonsurgical wound dressing (principal); L02.416 Cutaneous abscess of left lower limb
CPT/HCPCS: 99213; G0463

== ENCOUNTER 2025-03-15 08:42 | Outpatient (CLI) | payer MEDICARE, SELFPAY ==
--- NOTE | ~2025-03-15 | US_ITS ---
ULTRASOUND ANKLE BRACHIAL INDEX Ordering provider: Oleg Gandhi MD History: . other specified disorders of Veins . Comparison: None. FINDINGS: Right brachial systolic blood pressure: 145 mmHg Left brachial systolic blood pressure: 163 mmHg Right ankle systolic blood pressure: 173 mmHg Left ankle systolic blood pressure: 165 mmHg Right ankle/arm index (KRISSY): 1.06. Left ankle/arm index (KRISSY): 1.01 Note regarding KRISSY: --Normal= 1.0 or slightly greater. --Claudication (moderate stenosis or occlusive state)= 0.6 to 0.9. --Rest pain (severe occlusive states)= 0.5 or less. IMPRESSION: Bilateral normal KRISSY. Reviewed, dictated and finalized at location A. IMPRESSION: Bilateral normal KRISSY.
== END 2025-03-15 08:43 | disposition home or self-care (01) ==
PROVIDERS: PCP Internal Medicine; Visit Provider Surgery
DX: I73.9 Peripheral vascular disease, unspecified (principal); I87.8 Other specified disorders of veins
CPT/HCPCS: 93922